=== PATIENT | female | born 1935 | race Caucasian/White ===

== ENCOUNTER 2017-11-13 10:30 | Outpatient (RCR) | payer MEDICARE, OTHER, SELFPAY ==
--- NOTE | 2017-10-21 10:50 | HP.PTEVAL_ITS ---
Patient's Visit Information OBED WRIGHT is a 82 year old F referred to Physical Therapy by Marco CHOW with a diagnosis of L hip arthritis L leg weakness.. Date of Evaluation: 10/21/17 Physical Therapist: Marco Rosenberg, DPT, OC - Visit Plan Frequency: 2x /Week Duration: 4-6 Weeks Plan: 2x/week for 4-6 weeks for. 1. rollout and stretch ITB, quad, hip flexor and teach for HEP, L leg pull. 2. general home based LE strength without hip pain and teach for HEP. 3. foam balance and teach for HEP as safety allows. 4. MH as needed. - Subjective Subjective: Lose balance and hurts to walk in L hip and leg more than R. Pain is lateral at the hip and down the leg. Sees [facility] for injections in L hip every 6 months, had one about 6 months ago and sees him tomorrow. Sit is comfortable but walking and transferring hurts. Sleep is OK. Activities at home are what she wants to do but everything hurts especially in the kitchen and at the sink. No exercises. Does not work. Basic ADLs are OK but painful. Bingo is hobby and not a problem. No current numbness or tingling. Steps as she lives in [facility] and they hurt but no more than anything else. - Pain L hip Pain Intensity (Out of 10): 7 Pain Intensity Range: 0, 7 Comment: walking R hip Pain Intensity (Out of 10): 0 Pain Intensity Range: 0, 2 - Objective Walks I on firm flat surface with short steps. Transfers I with some pain L hip exitting from chair. steps with one rail and reciprocal not feeling too bad. LB AROM mod limited ex and min in flexion and SB without pain. L hip ROM felxion 105 degrees abd 20, ext rot 45, IR 10, pain at end ranges of rotation, - 5 ext. L hip ext and abduction strength 3/5 and flexion 3+, add 4/5, knee strength 4/5 ankle s strength 4/5. R hip ROM flexion 115 degrees abd 25, ext rot 50, IR 15, 0 ext. Knee AROM WFL as is ankle. ankle aROM WFL. + l hip scour, - R. Sensation LE WNL to gross light touch. reflexes 2/3 patella and achilles. foam stance eo 30 ec 10. VOR walk is good. Hip strength - Balance Scores Functional Gait Assessment Score: 23 % Disability: 23.3400 - Goals Goal 1:: L hip pain 0/10 at all times Goal Time Frame: 4-6 Weeks Goal 2:: I approp HEP for stretch and strength Goal Time Frame: 4-6 Weeks Goal 3:: quad tightness improved and hip ext ROM 5 B Goal Time Frame: 4-6 Weeks - Rehabilitation Potential Physical Therapy Diagnosis: L hip OA exacerbated by decreased ROM Rehabilitation Potential: Good - Anticipated Interventions Patient/Client Instruction: Educate patient on: Condition, Plan of Care For the Purpose of:: To decrease pain, To increase ROM Therapeutic Exercise to Include: Strength training, Balance training, Passive ROM, Active ROM For the Purpose of:: To decrease pain, To decrease swelling/inflammation, To improve muscle performance and motor function Manual Therapy Techniques to Include: Mobilization, Other Comment: leg pull For the Purpose of:: To decrease pain, To increase ROM Thermo therapy (hot pack): Yes For the Purpose of:: To decrease pain, To improve gait and locomotor functions Thank you for the opportunity to evaluate your patient. For Medicare and Medicare HMO plans, please review the plan of care and approve it. It will need to be FAXED BACK to us at [phone] for Medicare purposes. Please let me know if there are questions or concerns regarding this plan of care. Physician Signature: Date:
--- NOTE | 2017-11-13 11:24 | HP.PTDCSUM ---
HP - PT D/C Summary It has been my pleasure to treat OBED WIRGHT under orders from Marco Angel, for the diagnosis of L hip arthritis L leg weakness. for a total of 7 visit(s). Discharge Date: 11/13/17 Please see the following information for a summary of their discharge status. - Subjective Subjective: Doing Ok, treatment really helps. Feeling better overall. Was outside alot yesterday. To doctor in 5 months. - Pain L hip Pain Intensity (Out of 10): 7 R hip Pain Intensity (Out of 10): 0 bilat. LB Pain Intensity (Out of 10): 0 - Overall Improvement % Improvement: 50 - Objective Objective/Function: +2 FGA. 5 degres ext l hip but still tight. Walks well and steps with rail for balance. - Goals Goal 1:: L hip pain 0/10 at all times Goal Progress: Progressing Goal 2:: I approp HEP for stretch and strength Goal Progress: Progressing Goal 3:: quad tightness improved and hip ext ROM 5 B Goal Progress: Goal Met - Plan Plan: D/C to HEP - D/C Information Discharge Comments: Pt doing wella nd responds very well to treatment. ready to be done with PT and kalli ttempt to continue to improve on her own. Willc all doctor if not satisfactory. If there are questions or concerns regarding this patient's physical therapy, please feel free to call me at [phone]. Thank you for the referral of this patient. Sincerely, Marco Rosenberg, DPT, OC
== END 2017-11-13 19:00 | disposition home or self-care (01) ==
LOC: PT 10:30
PROVIDERS: Family Provider Family Medicine; PCP Family Medicine; Visit Provider Family Medicine
DX: M16.0 Bilateral primary osteoarthritis of hip (principal); R29.898 Other symptoms and signs involving the musculoskeletal system; M51.36 Other intervertebral disc degeneration, lumbar region
CPT/HCPCS: 97110; 97140; 97162; 97530

== ENCOUNTER → 2017-11-26 11:50 | Outpatient (CLI) | payer MEDICARE, OTHER, SELFPAY ==
--- NOTE | 2017-11-26 11:53 | RAD_ITS ---
STUDY: X-RAY - CERVICAL SPINE REASON FOR EXAM: Female, 82 years old. Chronic neck pain. TECHNIQUE: 5 view(s) of the cervical spine were obtained. COMPARISON: None FINDINGS: Normal anterior atlantoaxial articulation. Normal odontoid process. Normal cervical lordosis. There is multi-level endplate spondylosis. There is multi-level degenerative disc disease with multilevel disc space narrowing. Normal visualized intervertebral neuroforamina. There is no evidence of acute fracture or loss of vertebral axial height. There is maintenance of normal alignment. The soft tissue structures are unremarkable. RAD/Cerv Spine 4 or 5 Views IMPRESSION: Degenerative changes of the cervical spine. Electronically Signed: John Suazo DO at 13:25 EDT Tel [phone], Service support ,
== END ==
PROVIDERS: Family Provider Family Medicine; PCP Family Medicine; Visit Provider Anesthesiology Pain Medicine
DX: M54.2 Cervicalgia (principal)
CPT/HCPCS: 72050

== ENCOUNTER → 2018-04-22 15:52 | Outpatient (CLI) | payer MEDICARE, OTHER, SELFPAY ==
[2018-04-22 17:52] LABS: Hematocrit 36.9 % (37-47); Mean Corp Hgb Conc 32.5 g/gl (32-36); Mean Corpuscular Hgb 31.6 pg (27.0-32.0); Mean Corpuscular Volume 97.1 fL (81-99); Mean Platelet Vol. 11.1 fl (6.2-12.0); Platelet Count 220 K/mm3 (150-450); RBC Distribution Width CV 13.1 % (11.6-14.6); RBC Distribution Width SD 45.4 fl (35.1-43.9); Vitamin D,25 Hydroxy 38.2 ng/mL (29.95-100.01); White Blood Count 5.5 K/mm3 (4.4-11.0)
[2018-04-22 17:58] LABS: Scan Indicated on CBC? Y/N NO
[2018-04-22 18:08] LABS: ALB/GLOB Ratio 1.1 RATIO (0.9-2.4); AST(SGOT) 24 U/L (15-37); Alanine Aminotransfer ALT/SGPT 26 U/L (13-56); Albumin, Serum 3.7 g/dL (3.2-5.0); Alkaline Phosphatase 57 U/L (45-117); Anion Gap 9 (5-15); BUN 27 mg/dL (7-18); BUN/Creat Ratio 23.9 RATIO (10-20); Calcium,Total 9.5 mg/dL (8.5-10.1); Chloride 105 mmol/L (98-107); Creatinine, Serum 1.13 mg/dL (0.55-1.02); EST Glomerular Filtration Rate 49 mL/min (>60); Est Glom Filt Rate - Afr Amer 59 mL/min (>60); Globulin 3.5 g/dL (2.2-4.2); Glucose 88 mg/dL (74-106); Potassium 4.3 mmol/L (3.5-5.1); Protein, Total 7.2 g/dL (6.4-8.2); Rheumatoid Factor < 10.0 IU/mL (<15); Sodium Level 139 mmol/L (136-145); Thyroid Stim Hormone (TSH) 1.08 uIU/mL (0.358-3.74)
[2018-04-27 16:25] LABS: ANTINUCLEAR ANTIBODIES DIRECT Negative (Negative)
== END ==
PROVIDERS: Visit Provider Family Medicine
DX: M16.12 Unilateral primary osteoarthritis, left hip (principal); R52 Pain, unspecified
CPT/HCPCS: 36415; 80053; 82306; 84443; 85027; 86038; 86431

== ENCOUNTER 2018-08-20 13:30 | Outpatient (RCR) | payer MEDICARE, OTHER, SELFPAY ==
--- NOTE | 2018-08-10 13:13 | HP.PTEVAL ---
Patient's Visit Information OBED WRIGHT is a 83 year old F referred to Physical Therapy by Filomena Freeman MD with a diagnosis of Dysequilibrium, back pain.. Date of Evaluation: 08/10/18 Physical Therapist: Marco Rosenberg, BUCK, OCS, CSCS - Visit Plan Frequency: 1-2x /Week Duration: 4-6 Weeks Plan: Neurocom balacne assessment then 2-3 visits to 2x/week for 2-4 weeks depending on results for vestibular balance and other balacne per results. - Subjective Findings: Mad about losing balance. Wobbles when I walk and has for a couple months. Has L hip that needs replaced and that might contribute. Does not use cane or walker. No falls. No spinning. No neuropathy. Sleeps normal. Not employed. Basic aDLs are OK. Gets out to play bingo and watches TV. Sometimes does some ex at home at the sink. Basic aDLs are OK, just more wobbly than usual. - Objective Walks I, trasnfers I without UE. Steps are reciprocal but needs one rail. VOR walking very slow and challenging. reflexes LE patella adn achilles 2/3. Sensation LE WNL to gross light touch. Strength LE 4-/5 without myotomal abnormalities. coordination to heel lemon adn reciprocal toe tap. - Balance Scores Functional Gait Assessment Score: 24 % Disability: 20.0000 CATSIB Score (Max score 120 seconds): 94 - Goals Goal 1:: FGA Goal Time Frame: 2-4 Weeks Goal 2:: Neurocom test complete Goal Time Frame: 2-4 Weeks Goal 3:: I approp HEP to minimize future problems. Goal Time Frame: 2-4 Weeks - Rehabilitation Potential Physical Therapy Diagnosis: Dysequilibrium of gait especially with head moving. Rehabilitation Potential: Good - Anticipated Interventions Patient/Client Instruction: Educate patient on: Condition, Plan of Care For the Purpose of:: To improve safety with gait, To improve safety Therapeutic Exercise to Include: Balance training, Gait and locomotor training For the Purpose of:: To increase tolerance to activity/condition/position, To improve safety Thank you for the opportunity to evaluate your patient. For Medicare and Medicare HMO plans, please review the plan of care and approve it. It will need to be FAXED BACK to us at [phone] for Medicare purposes. For Medicare only, by signing this I certify the plan of care. Please let me know if there are questions or concerns regarding this plan of care. Physician Signature: Date:
--- NOTE | 2018-08-17 12:39 | HP.PTCOM ---
PT Communication Note 08/17/[address] Filomena Freeman MD , Thank you for the referral of Mary to [facility] for balacne testing. I have enclosed a copy of her results for your review. In summation, she score only low on the [employer] vestibular component. Other tests were normal for her age. With this in mind, I plan to see her one visit to instruct in HEP to address this issue. We will then let her ex at home and follow up in a month to recheck and note improvements and progress exercise as needed. If there ar equestions regarding her physical therapy, please feel free to call me. Thank you. Sincerely, Marco Rosenberg DPT, OCS, CSCS Contact Information
--- NOTE | 2018-10-13 18:22 | HP.PT.NRP ---
HP - Discharge Summary (1) - Patient Information OBED WRIGHT was seen in my office for initial evaluation on 08/10/18. The following Plan of Care was established for this patient: Initial Frequency: 1-2x /Week Initial Duration: 4-6 Weeks - Anticipated Interventions Patient/Client Instruction: Educate patient on: Condition, Plan of Care For the Purpose of:: To improve safety with gait, To improve safety Therapeutic Exercise to Include: Balance training, Gait and locomotor training For the Purpose of:: To increase tolerance to activity/condition/position, To improve safety This patient was last seen in our office 08/20/18. Pertinent comments regarding their Physical therapy will appear below: pT SEEN 3 VISITS OF poc THEN STATED SHE WANTED TO DO HER EXERCISES AT HOME. She was to f/u one month later but neglected to attend that visit. It has been over 2 months since last attendance and I will disocntinue due to nonattendance. At this point I will be discontinuing this patient from physical therapy. I would be happy to see this patient again in the future if found appropriate by the physician. Thank you! Marco Rosenberg, DPT, OCS, CSCS
== END 2018-08-20 19:00 | disposition home or self-care (01) ==
LOC: PT 13:30
PROVIDERS: Family Provider Family Medicine; PCP Family Medicine; Referring Provider Anesthesiology Pain Medicine; Visit Provider Anesthesiology Pain Medicine
DX: M54.9 Dorsalgia, unspecified (principal); R26.89 Other abnormalities of gait and mobility
CPT/HCPCS: 97110; 97162; 97750

== ENCOUNTER → 2018-09-17 18:05 | Outpatient (CLI) | payer MEDICARE, OTHER, SELFPAY | PROVIDERS: Referring Provider Family Medicine; Visit Provider Family Medicine | DX: R30.0 Dysuria (principal) | CPT/HCPCS: 87086; 87088 ==

== ENCOUNTER → 2019-04-29 | Outpatient (CLI) | payer MEDICARE, OTHER, SELFPAY ==
[2017-07-30 22:56] VITALS: BMI 22.3
--- NOTE | 2019-04-29 08:57 | RAD_ITS ---
STUDY: X-RAY - ABDOMEN/PELVIS REASON FOR EXAM: Female, 84 years old. Chronic left lower quadrant pain. TECHNIQUE: AP supine and upright views of the abdomen and pelvis. COMPARISON: Comparison is made with prior examination dated December 21, 2015. FINDINGS: Normal visualized lung bases. There is a moderate amount of colonic fecal material. There is no demonstrated free abdominal air. The visualized liver, spleen and kidneys are grossly normal in size and morphology. There are calcified phleboliths in the pelvis. There are diffuse degenerative changes of the visualized lumbar spine. Osteoarthritis of both hip joints worse on the left side. RAD/Abd Inc Decub and/or Erect IMPRESSION: Moderate amount of fecal material is seen in the colon. Electronically Signed: Greg Harding, at 9:41 EDT , Service support ,
--- NOTE | 2019-04-29 08:57 | RAD_ITS ---
STUDY: X-RAY CHEST REASON FOR EXAM: Female, 84 years old. Dysphagia TECHNIQUE: PA and lateral views of the chest. COMPARISON: None. FINDINGS: The lungs are clear and expanded. There is no demonstrated pleural abnormality. Normal size heart. Normal mediastinum and leti. Normal visualized pulmonary arteries. Normal visualized aortic arch and descending thoracic aorta. Normal visualized thoracic spine. Normal visualized ribs, clavicles, and shoulders. There is no demonstrated abnormality of the visualized soft tissue structures of the upper abdomen. RAD/Chest PA and Lateral IMPRESSION: Normal x-ray examination of the chest. Electronically Signed: Jose Mahoney MD at 9:09 EDT Tel , Service support ,
[2019-04-29 09:13] LABS: Mucous, Urine 0 SEEN /hpf (<or=2+)
[2019-04-29 10:24] LABS: Color, Urine Yellow (Yellow); Glucose, Dipstick Normal (Normal); Ketone-Dipstick Negative (Negative); Leukocyte Esterase-Dipstick 500 /ul (Negative); Nitrite-Dipstick Negative (Negative); Occult Blood-Urine 10 /ul (Negative); Protein-Dipstick Negative (Negative); Urine Bilirubin Dipstick Negative (Negative); Urine Clarity Sl. Cloudy (Clear); Urine Urobilinogen Normal (Normal)
[2019-04-29 10:37] LABS: Absolute Lymphocyte Count 1.29 X10^3/uL (0.83-4.51); Absolute Neutrophil Count 5.5 X10^3/uL (2.0-7.7); Bacteria 2+ /hpf (None Seen); Basophil# 0.01 X10^3/uL; Basophil% 0.1 % (0-1); Eosinophil# 0.12 X10^3/uL; Eosinophils% 1.5 % (0-5); Hematocrit 42.3 % (37-47); Hemoglobin 13.6 g/dL (12.0-15.0); Lymphocyte # 1.29 X10^3/ul (4.0); Lymphocyte % 16.6 % (19-41); Mean Corp Hgb Conc 32.2 g/dL (32-36); Mean Corpuscular Hgb 31.1 pg (27.0-32.0); Mean Corpuscular Volume 96.8 fL (81-99); Mean Platelet Vol. 10.6 fl (6.2-12.0); Monocyte# 0.82 X10^3/uL; Monocyte% 10.6 % (0-10); NRBC Flagged by Analyzer 0 % (0-5); Neutrophil # 5.49 X10^3/uL (2.7-7.7); Neutrophil % 70.8 % (47-70); POSITIVE MORPHOLOGY YES; Platelet Count 220 K/mm3 (150-450); RBC Distribution Width SD 46.8 fl (35.1-43.9); Red Blood Cells-Urine 0-5 SEEN /hpf (0-5); Red Blood Count 4.37 M/mm3 (4.2-5.4); Squamous Epithelial Cells - UA 25-50 SEEN /hpf (5-10); White Blood Cells 5-10 SEEN /hpf (0-5); White Blood Count 7.8 K/mm3 (4.4-11.0)
[2019-04-29 10:39] LABS: Differential Indicated SCAN CRITERIA MET
[2019-04-29 10:55] LABS: PTHIN 40.6 pg/mL (18.4-80.1)
[2019-04-29 11:02] LABS: ALB/GLOB Ratio 1.1 RATIO (0.9-2.4); AST(SGOT) 15 U/L (15-37); Alanine Aminotransfer ALT/SGPT 21 U/L (13-56); Albumin, Serum 4.1 g/dL (3.2-5.0); Alkaline Phosphatase 60 U/L (45-117); Anion Gap 6 (5-15); BUN 22 mg/dL (7-18); BUN/Creat Ratio 21.8 RATIO (10-20); CRP < 2.90 mg/L (0.0-3.0); Calcium,Total 9.6 mg/dL (8.5-10.1); Chloride 104 mmol/L (98-107); Creatinine, Serum 1.01 mg/dL (0.55-1.02); EST Glomerular Filtration Rate 56 mL/min (>60); Est Glom Filt Rate - Afr Amer 67 mL/min (>60); Globulin 3.7 g/dL (2.2-4.2); Glucose 86 mg/dL (74-106); Potassium 3.7 mmol/L (3.5-5.1); Protein, Total 7.8 g/dL (6.4-8.2); Sodium Level 140 mmol/L (136-145); Thyroid Stim Hormone (TSH) 1.86 uIU/mL (0.358-3.74)
[2019-04-30 07:07] LABS: Erythrocyte Sedimentation Rate 10 mm/hr (0-30)
[2019-04-30 15:56] LABS: ANTINUCLEAR ANTIBODIES DIRECT Negative (Negative)
[2019-04-30 16:08] LABS: Carcinoembryonic Antigen 4.3 ng/mL (0.0-4.7)
== END | disposition home or self-care (01) ==
LOC: MTLAB 08:55
PROVIDERS: Family Provider Family Medicine; PCP Family Medicine; Referring Provider Family Medicine; Visit Provider Family Medicine
DX: R63.4 Abnormal weight loss (principal); R10.32 Left lower quadrant pain; E13.10 Other specified diabetes mellitus with ketoacidosis without coma; R19.00 Intra-abdominal and pelvic swelling, mass and lump, unspecified site
CPT/HCPCS: 36415; 71046; 74019; 80053; 81001; 82378; 83970; 84443; 85025; 85652; 86038; 86140

== ENCOUNTER → 2019-05-12 | Outpatient (CLI) | payer MEDICARE, OTHER, SELFPAY ==
--- NOTE | 2019-05-12 12:55 | CT_ITS ---
STUDY: CT ABDOMEN AND PELVIS WITHOUT CONTRAST REASON FOR EXAM: Female, 84 years old. Weight loss and left lower quadrant pain RADIATION DOSAGE (If Supplied By Facility): CTDIvol = ( 5.42 ) mGy, DLP = ( 256.19 ) mGycm TECHNIQUE: Transaxial images were obtained from the dome of the diaphragm to the symphysis pubis without oral contrast, and without intravenous contrast. Sagittal and coronal images were reconstructed. Individualized dose optimization techniques were used for this CT. COMPARISON: July 31, 2017 FINDINGS: Mild subsegmental atelectasis in left lower lobe.. Calcified granuloma in right lower lobe. The visualized portions of the heart are within normal limits. Normal liver. Normal gallbladder and extrahepatic biliary system. Multiple tiny granulomatous calcifications within the spleen.. Normal pancreas. Normal bilateral adrenal glands. Tiny nonobstructing right renal calculus without evidence for hydronephrosis or ureteral calculus. Small bilateral parapelvic renal cysts Normal visualized stomach. There is mild nonspecific ileus with diffuse fecal retention in the colon. There is a loop of small bowel left lower quadrant demonstrating concentric thickening of the rogers which may be consistent with nonspecific enteritis. Appendix not visualized consistent with appendectomy.. Atherosclerotic changes of the aorta without evidence for aneurysm Normal inferior vena cava. Normal retroperitoneum. Incompletely distended thick-walled bladder likely of no significance. Normal abdominal wall. Lumbar spine demonstrates mild spondylosis. 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 No evidence for small bowel obstruction. Apparent loop of small bowel in the left lower quadrant with thickening of the rogers which may be consistent with nonspecific enteritis Electronically Signed: Zach Hi MD at 19:01 EDT , Service support ,
== END | disposition home or self-care (01) ==
LOC: CT 12:49
PROVIDERS: Family Provider Family Medicine; PCP Family Medicine; Referring Provider Family Medicine; Visit Provider Family Medicine
DX: R63.4 Abnormal weight loss (principal)
CPT/HCPCS: 74176

== ENCOUNTER → 2019-05-17 | Outpatient (CLI) | payer MEDICARE, OTHER, SELFPAY ==
[2017-07-30 22:56] VITALS: BMI 22.3
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
== END | disposition home or self-care (01) ==
LOC: RAD 09:12
PROVIDERS: Family Provider Family Medicine; PCP Family Medicine; Referring Provider Family Medicine; Visit Provider Family Medicine
DX: R13.10 Dysphagia, unspecified (principal)
CPT/HCPCS: 74220

== ENCOUNTER → 2019-06-03 08:33 | Outpatient (CLI) | payer MEDICARE, OTHER, SELFPAY ==
[2019-05-25 09:17] VITALS: BMI 20.1
[2019-05-25 09:22] VITALS: BMI 22.3
--- NOTE | 2019-06-03 08:35 | RAD_ITS ---
STUDY: AIR-CONTRAST UPPER GI SERIES AND SMALL BOWEL FOLLOW-THROUGH EXAMINATION. REASON FOR EXAM: Female, 84 years old. Intermittent left lower quadrant pain. FLUOROSCOPY TIME (if supplied): ( 2 minutes and 39 seconds ) minutes/seconds TECHNIQUE: The patient ingested barium. Multiple images of the esophagus, stomach and duodenum were obtained. Following this, a small bowel follow-through examination was performed. COMPARISON: None. FINDINGS: The esophagus is unremarkable. There is no evidence of obstruction. No mass lesion is seen. No evidence of gastroesophageal reflux. The stomach and duodenum are unremarkable. A small bowel follow through examination was then obtained. The small bowel transit is normal. No evidence of intrinsic or extrinsic small bowel disease. The terminal ileum is unremarkable. RAD/Upper GI/w Small Bowel IMPRESSION: Unremarkable air contrast upper GI series and small bowel follow-through examination. Electronically Signed: Greg Harding, at 14:31 EST , Service support ,
== END ==
PROVIDERS: Family Provider Family Medicine; PCP Family Medicine; Referring Provider Surgery; Visit Provider Surgery
DX: R93.5 Abnormal findings on diagnostic imaging of other abdominal regions, including retroperitoneum (principal); K63.9 Disease of intestine, unspecified; N32.81 Overactive bladder; R10.32 Left lower quadrant pain; N39.0 Urinary tract infection, site not specified
CPT/HCPCS: 74249; 87086; 87088

== ENCOUNTER → 2019-06-03 15:17 | Outpatient (CLI) | payer MEDICARE, OTHER, SELFPAY ==
[2019-05-25 09:22] VITALS: BMI 22.3
== END ==
PROVIDERS: Family Provider Family Medicine; PCP Family Medicine; Referring Provider Family Medicine; Visit Provider Family Medicine
DX: N39.0 Urinary tract infection, site not specified (principal)
CPT/HCPCS: 87086

== ENCOUNTER 2019-06-06 18:16 | Emergency (ER) | payer OTHER, MEDICARE, SELFPAY ==
[2019-05-25 09:22] VITALS: BMI 22.3
[2019-06-06 18:17] VITALS: BP 182/96; PULSE 80; RESP 17; TEMP 36.8; O2SAT 98; BMI 25.1
[2019-06-06 18:28] VITALS: BP 175/82; PULSE 79; RESP 19; O2SAT 98
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
[2019-06-06 19:47] LABS: Absolute Lymphocyte Count 1.15 X10^3/uL (0.83-4.51); Absolute Neutrophil Count 4.7 X10^3/uL (2.0-7.7); Basophil# 0.02 X10^3/uL; Basophil% 0.3 % (0-1); Eosinophil# 0.03 X10^3/uL; Eosinophils% 0.5 % (0-5); Hemoglobin 12.7 g/dL (12.0-15.0); Lymphocyte # 1.15 X10^3/ul (4.0); Lymphocyte % 17.4 % (19-41); Mean Corp Hgb Conc 32.6 g/dL (32-36); Mean Corpuscular Hgb 31.5 pg (27.0-32.0); Mean Corpuscular Volume 96.8 fL (81-99); Mean Platelet Vol. 9.5 fl (6.2-12.0); Monocyte# 0.63 X10^3/uL; Monocyte% 9.5 % (0-10); NRBC Flagged by Analyzer 0 % (0-5); Neutrophil % 71.1 % (47-70); Platelet Count 182 K/mm3 (150-450); RBC Distribution Width CV 12.5 % (11.6-14.6); RBC Distribution Width SD 44.9 fl (35.1-43.9); Red Blood Count 4.03 M/mm3 (4.2-5.4); White Blood Count 6.6 K/mm3 (4.4-11.0)
[2019-06-06] MEDS: Morphine 4 MG/ML Syringe IV ×2 (19:48→21:38)
[2019-06-06 20:15] LABS: ALB/GLOB Ratio 1.2 RATIO (0.9-2.4); AST(SGOT) 32 U/L (15-37); Alanine Aminotransfer ALT/SGPT 34 U/L (13-56); Albumin, Serum 3.8 g/dL (3.2-5.0); Alkaline Phosphatase 62 U/L (45-117); Anion Gap 5 (5-15); BUN 22 mg/dL (7-18); BUN/Creat Ratio 23.6 RATIO (10-20); Calcium,Total 9.3 mg/dL (8.5-10.1); Chloride 106 mmol/L (98-107); Creatinine, Serum 0.93 mg/dL (0.55-1.02); EST Glomerular Filtration Rate 61 mL/min (>60); Est Glom Filt Rate - Afr Amer 74 mL/min (>60); Estimated Creatinine Clearance 49.56 ml/min; Globulin 3.2 g/dL (2.2-4.2); Glucose 85 mg/dL (74-106); Lipase 141 U/L (73-393); Potassium 4.3 mmol/L (3.5-5.1); Sodium Level 140 mmol/L (136-145)
[2019-06-06 20:42] VITALS: BP 164/76; PULSE 75; RESP 14
[2019-06-06 20:48] LABS: Red Blood Cells-Urine 0 SEEN /hpf (0-5); White Blood Cells 0 SEEN /hpf (0-5)
[2019-06-06 21:03] LABS: Color, Urine Yellow (Yellow); Glucose, Dipstick Normal (Normal); Ketone-Dipstick 5 mg/dl (Negative); Leukocyte Esterase-Dipstick Negative /ul (Negative); Nitrite-Dipstick Negative (Negative); Occult Blood-Urine 10 /ul (Negative); Protein-Dipstick Negative (Negative); Urine Bilirubin Dipstick Negative (Negative); Urine Clarity Clear (Clear); Urine Urobilinogen Normal (Normal)
[2019-06-06 21:12] LABS: Bacteria RARE /hpf (None Seen); Mucous, Urine RARE /hpf (<or=2+); Squamous Epithelial Cells - UA 0-5 SEEN /hpf (5-10)
[2019-06-06 22:30] VITALS: BP 144/70; PULSE 77; RESP 16; O2SAT 100
[2019-06-06 23:18] VITALS: BP 144/70; PULSE 78; RESP 14; O2SAT 100
== END 2019-06-06 23:26 | disposition short-term general hospital (02) ==
PROVIDERS: Emergency Provider Emergency Medicine; Family Provider Family Medicine; PCP Family Medicine
DX: S22.20XA Unspecified fracture of sternum, initial encounter for closed fracture (principal); V48.5XXA Car driver injured in noncollision transport accident in traffic accident, initial encounter; Y93.89 Activity, other specified; Y92.410 Unspecified street and highway as the place of occurrence of the external cause; M54.2 Cervicalgia; M19.90 Unspecified osteoarthritis, unspecified site; K21.9 Gastro-esophageal reflux disease without esophagitis; Z79.899 Other long term (current) drug therapy
CPT/HCPCS: 70450; 71260; 72125; 74177; 80053; 81001; 83690; 84484; 85025; 93005; 96374; 96376; 99285; Q9967; A4216

== ENCOUNTER → 2019-06-25 11:55 | Outpatient (CLI) | payer OTHER, MEDICARE, SELFPAY ==
[2019-06-06 18:17] VITALS: BMI 25.1
--- NOTE | 2019-06-25 12:08 | RAD_ITS ---
STUDY: X-RAY CHEST REASON FOR EXAM: Female, 84 years old. Follow-up sternal fracture. TECHNIQUE: PA and lateral views of the chest. COMPARISON: CT chest 06/06/2019. FINDINGS: The lungs are clear and expanded. There is no demonstrated pleural abnormality. Normal size heart. Normal mediastinum and leti. Normal visualized pulmonary arteries. There is atherosclerotic calcification of the aortic arch with tortuosity. There is demineralization of the osseous structures. Normal visualized ribs, clavicles, and shoulders and spine. Redemonstrated is previously seen sternal fracture, now displaced approximately 1.3 cm with compared to prior examination CT chest dated 06/06/2019. There is no demonstrated abnormality of the visualized soft tissue structures of the upper abdomen. RAD/Chest PA and Lateral IMPRESSION: Osteopenia with sternal fracture described above. No acute cardiopulmonary disease. Electronically Signed: Carlene Marsh MD at 2:19 EST , Service support ,
== END ==
PROVIDERS: Family Provider Family Medicine; PCP Family Medicine; Referring Provider Family Medicine; Visit Provider Family Medicine
DX: S22.20XA Unspecified fracture of sternum, initial encounter for closed fracture (principal)
CPT/HCPCS: 71046

== ENCOUNTER → 2019-07-21 11:51 | Outpatient (CLI) | payer MEDICARE, OTHER, SELFPAY ==
--- NOTE | 2019-07-21 11:58 | RAD_ITS ---
STUDY: X-RAY - LUMBAR SPINE REASON FOR EXAM: Female, 84 years old. Chronic back pain. TECHNIQUE: 5 view(s) of the lumbar spine were obtained. COMPARISON: CT abdomen pelvis 06/06/2019. FINDINGS: Mild compression fracture of the L1 vertebral body. On the 06/06/2019 CT, there may have been subtle acute fracture lines in this location although they are difficult to see due to artifact from adjacent barium in bowel. The compression is new compared to previous. No other fracture. Alignment otherwise anatomic. Moderate degenerative changes lower lumbar spine. RAD/L/S Spine Min 4 Views IMPRESSION: Mild compression fracture of the L1 vertebral body. The fracture may have been present on 06/06/2019 although it is difficult to see on that study, and the compression is new. Electronically Signed: Herrera Levi, at 23:13 EST Tel , Service support ,
== END ==
PROVIDERS: Family Provider Family Medicine; PCP Family Medicine; Referring Provider Family Medicine; Visit Provider Family Medicine
DX: M54.9 Dorsalgia, unspecified (principal); G89.29 Other chronic pain
CPT/HCPCS: 72110

== ENCOUNTER 2019-09-21 10:30 | Outpatient (RCR) | payer MEDICARE, OTHER, SELFPAY ==
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
--- NOTE | 2019-09-21 11:22 | HP.PTDCSUM ---
HP - PT D/C Summary It has been my pleasure to treat OBED WRIGHT referred by Alan Gay MD, with the diagnosis of Radiculopathy, Sacroiliitis for a total of 5 visit(s). Discharge Date: 09/21/19 Please see the following information for a summary of their discharge status. - Subjective Subjective: I feel good. Yordan floresn working on it. HEP is helping. She feels OK. A little better each day. Wants to do exercises at home. Will see doctor in a couple months. Got injection last week in back. It helped. - Pain LBP Pain Intensity (Out of 10): 0 - Overall Improvement % Improvement: 80 - Objective Objective/Function: FGA is above normal for her age. LB AROM ext adn flexion painfree today, SB limited R vs L but painfree. Moving , transitioning adn walking without pain today. Pt happy with progress and feels she can continue on her own via HEP. - Goals Goal 1:: Stadn at counter adn cook meal without increased pain Goal Progress: Goal Met Goal 2:: Patient feel 75% better in LBP and 2/10 at worst. Goal Progress: Goal Met Goal 3:: I appropr posture including NS and HEP to minimize future problems. Goal Progress: Goal Met Goal 4:: Oswestry < 25% disability. Goal Progress: Goal Met - Plan Plan: d/c - D/C Information Discharge Comments: Pt to continue via HEP. If there are questions or concerns regarding this patient's physical therapy, please feel free to call me at [phone]. Thank you for the referral of this patient. Sincerely, Marco Rosenberg, DPT, OCS, CSCS
== END 2019-09-21 19:00 | disposition home or self-care (01) ==
LOC: PT 10:30
PROVIDERS: PCP Family Medicine; Referring Provider Specialist; Visit Provider Specialist
DX: M46.1 Sacroiliitis, not elsewhere classified (principal); M16.11 Unilateral primary osteoarthritis, right hip; M54.16 Radiculopathy, lumbar region
CPT/HCPCS: 97110; 97162; 97164

== ENCOUNTER → 2020-04-12 | Outpatient (CLI) | payer MEDICARE, OTHER, SELFPAY ==
[2020-04-12 14:24] LABS: Mucous, Urine 0 SEEN /hpf (<or=2+)
[2020-04-12 17:38] LABS: Color, Urine Yellow (Yellow); Glucose, Dipstick Normal (Normal); Ketone-Dipstick Negative (Negative); Leukocyte Esterase-Dipstick 500 /ul (Negative); Nitrite-Dipstick Positive (Negative); Occult Blood-Urine 50 /ul (Negative); Protein-Dipstick 30 mg/dl (Negative); Urine Bilirubin Dipstick Negative (Negative); Urine Clarity Cloudy (Clear); Urine Urobilinogen Normal (Normal)
[2020-04-12 17:54] LABS: White Blood Cells >100 SEEN /hpf (0-5)
[2020-04-12 17:55] LABS: Bacteria 4+ /hpf (None Seen)
[2020-04-12 17:56] LABS: Transitional Epithelial - Ur 0-5 SEEN /hpf (0-5)
[2020-04-12 17:57] LABS: Squamous Epithelial Cells - UA 0-5 SEEN /hpf (5-10)
[2020-04-12 17:59] LABS: Red Blood Cells-Urine 0-5 SEEN /hpf (0-5)
[2020-04-12 18:03] LABS: ALB/GLOB Ratio 1.1 RATIO (0.9-2.4); AST(SGOT) 13 U/L (15-37); Alanine Aminotransfer ALT/SGPT 21 U/L (13-56); Albumin, Serum 3.9 g/dL (3.2-5.0); Alkaline Phosphatase 76 U/L (45-117); Anion Gap 6 (5-15); BUN 22 mg/dL (7-18); BUN/Creat Ratio 23.6 RATIO (10-20); Calcium,Total 9.6 mg/dL (8.5-10.1); Chloride 105 mmol/L (98-107); Creatinine, Serum 0.93 mg/dL (0.55-1.02); EST Glomerular Filtration Rate 61 mL/min (>60); Est Glom Filt Rate - Afr Amer 74 mL/min (>60); Globulin 3.5 g/dL (2.2-4.2); Glucose 84 mg/dL (74-106); Potassium 3.5 mmol/L (3.5-5.1); Protein, Total 7.4 g/dL (6.4-8.2); Sodium Level 140 mmol/L (136-145)
[2020-04-12 18:17] LABS: Microalbumin,Random Urine 34.1 mg/L (NO RANGE EST.); Microalbumin:Creatinine Ratio 33.4 mg/g CRE (<30 mg/g CRE)
[2020-04-12 18:26] LABS: Hemoglobin A1c 5.1 % (3.8-5.6)
== END | disposition home or self-care (01) ==
PROVIDERS: PCP Family Medicine; Referring Provider Family Medicine; Visit Provider Family Medicine
DX: R35.1 Nocturia (principal); Z79.899 Other long term (current) drug therapy
CPT/HCPCS: 36415; 80053; 81001; 82043; 82570; 83036

== ENCOUNTER 2020-05-18 16:33 | Emergency (ER) | payer MEDICARE, OTHER, SELFPAY ==
[2020-05-18 16:35] VITALS: BP 167/77; PULSE 88; RESP 16; TEMP 36.3; O2SAT 98; BMI 19.4
--- NOTE | 2020-05-18 17:49 | ED.DCSUM_ITS ---
History of Present Illness Chief Complaint: Upper Extremity Injury Informant: Patient Narrative: Patient is an 85-year-old female with a past medical history of hypertension who presents to the [facility] for left arm pain. This started 4 days ago. Just prior to the onset of pain she was carrying heavy groceries in that arm. She is left-handed at baseline. Movements make the pain worse. Pain goes down from her shoulder to her hand. Loss of sensation. She has never had this happ en before. She tried taking 1 Advil for this which did not give her significant relief. If she keep the arm still of the pain is minimal. She denies any associated chest pain or shortness of breath. No neck pain. No headache. Past Medical History - Allergies and Home Meds Allergies/Adverse Reactions: Allergies cyclobenzaprine Allergy (Verified 05/18/20 16:35) Unknown Penicillins Allergy (Verified 05/18/20 16:35) Rash acetaminophen [From Tylenol] Adverse Reaction (Verified 05/18/20 16:35) STATES FILLS NUMB ALL OVER diphenhydramine citrate [From Advil PM] Adverse Reaction (Verified 05/18/20 16:35) STATES FEELS NUMB ALL OVER ibuprofen [From Advil PM] Adverse Reaction (Verified 05/18/20 16:35) STATES FEELS NUMB ALL OVER Primary Care Physician: Marco Angel MD [Primary Care Provider] - 3-5 Days Surgical History: noncontributory, adenoidectomy, - - colonoscopy, lumpectomy Smoking Status: Unknown if ever smoked Review of Systems All systems negative except as indicated General: Denies: Chills, Fever, Sweats Eyes: Denies: Visual changes - bilaterally, Diplopia ENT: Denies: Rhinorrhea, Sore throat Cardiovascular: Denies: Chest pain, Palpitations Respiratory: Denies: Dyspnea, Cough, Dyspnea on exertion Gastrointestinal: Denies: Abdominal pain, Nausea, Vomiting, Diarrhea Genitourinary: Denies: Dysuria, Hematuria, Frequency Musculoskeletal: Reports: Arthralgias. Denies: Neck pain, Back pain, Swelling, Extremity Pain Skin: Denies: Rash, Wounds Neurological: Denies: Headache, Weakness, Numbness Physical Exam Vital Signs/Narrative: Vital Signs Temp Pulse Resp BP Pulse Ox 05/18/20 16:35 97.3 F L 88 16 167/77 H 98 Inital Vital Signs reviewed: Yes General: Well nourished, Well developed, No Acute Distress Head: Normocephalic, Atraumatic Eyes: Perrl, EOMI ENT: Moist mucous membranes, No rhinorrhea Neck: Supple, Nontender Cardiovascular: Regular rate, Regular rhythm, No murmurs Respiratory: No distress, CTA bilaterally, Chest nontender Abdomen: Soft, Nontender, Nondistended, Normal bowel sounds Back: Nontender, Normal Inspection Extremities: No edema, - - Patient has tenderness to palpation of the left shoulder and tricep. She has pain going down the arm when passively abducting the left arm. Full muscle strength of the bicep. Good excellence manager strength. 2+ radial pulse. Sensation intact. No pain with compression of the cervical spine. Skin: Normal color, No rash Neurological: Alert, Oriented x3, Cranial nerves II-XII grossly intact, Normal Strength, Normal Sensation Psychological: Normal affect, Normal Mood Diagnostic/Tx/Re-eval - Medical Decision Making Patient presents to the ED for left arm pain. This seems musculoskeletal as it hurts with movement and palpation. Will obtain x-ray of the left shoulder. This was painful after carrying groceries in that left arm. X-ray obtained which showed calcific tendinitis. Will recommend symptomatic treatment at home. We will have her follow-up with her PCP. Warning signs and symptoms which to return to the ED are reviewed. She understands and is agreeable this plan. She is discharged home in stable condition. All questions answered. ED Disposition - Plan for ED Patient: Disposition: Home or Assisted Living Diagnosis: Tendinitis, Shoulder pain Instructions: ED Tendinitis Calcific Referrals: Marco Angel MD [Primary Care Provider] - 3-5 Days
--- NOTE | 2020-05-18 17:55 | RAD_ITS ---
STUDY: X-RAY - LEFT SHOULDER REASON FOR EXAM: Female, 85 years old. LEFT SHOULDER PAIN. NO KNOWN INJURY. TECHNIQUE: 4 view(s) of the shoulder. COMPARISON: None. FINDINGS: Normal glenohumeral articulation. Normal acromioclavicular joint. Normal acromion. Normal humeral head and visualized proximal humerus. There is periarticular soft tissue calcification consistent with a calcific tendinitis. There is no demonstrated fracture. Normal visualized pulmonary apex. RAD/Shoulder min 2 Views IMPRESSION: No acute fracture or dislocation. Calcific tendinitis. Electronically Signed: Sonido De La Torre MD at 19:02 EST , Service support ,
== END 2020-05-18 19:24 | disposition home or self-care (01) ==
PROVIDERS: Emergency Provider Emergency Medicine; PCP Family Medicine
DX: M65.222 Calcific tendinitis, left upper arm (principal); I10 Essential (primary) hypertension
CPT/HCPCS: 73030; 99282

== ENCOUNTER 2020-06-20 10:13 | Outpatient (RCR) | payer MEDICARE, OTHER, SELFPAY ==
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
--- NOTE | 2020-08-22 09:44 | HP.PT.NRP ---
OBED WRIGHT was seen in my office for initial evaluation on 06/20/20. The following Plan of Care was established for this patient: Initial Frequency: 1x/Week Initial Duration: 4 Weeks Patient/Client Instruction: Educate patient on: Condition, Plan of Care For the Purpose of:: To decrease pain, To increase ROM, To improve nutrient delivery to tissue, To improve muscle performance and motor function, To improve ability to perform ADL's, To increase tolerance to activity/condition/position, To improve performance and independence with ADL's, To decrease level of supervision to perform tasks, To improve ability of physical actions for home/community/work/leisure, To improve gait and locomotor functions, To improve health of tissue, To improve endurance, To improve balance, To improve safety with gait Therapeutic Exercise to Include: Strength training, Endurance training, Balance training, Body mechanics, Postural training, Flexibilty training, Gait and locomotor training, Active ROM, Dynamic Lumbar Stabilization For the Purpose of:: To decrease pain, To improve nutrient delivery to tissue, To improve muscle performance and motor function, To improve ability to perform ADL's, To increase tolerance to activity/condition/position, To improve performance and independence with ADL's, To decrease level of supervision to perform tasks, To improve ability of physical actions for home/community/work/leisure, To improve gait and locomotor functions, To improve health of tissue, To increase flexibility/ROM, To improve balance, To improve safety with gait Functional Training to Include: Gait training For the Purpose of:: To improve safety with gait This patient was last seen in our office 06/20/20. Pertinent comments regarding their Physical therapy will appear below: Pt no showed for her follow up appointment after her initial evaluation. DC PT At this point I will be discontinuing this patient from physical therapy. I would be happy to see this patient again in the future if found appropriate by the physician. Thank you! Lauryn Saldana, MPT
== END 2020-06-20 19:00 | disposition home or self-care (01) ==
LOC: PT 10:13
PROVIDERS: PCP Family Medicine; Referring Provider Anesthesiology Pain Medicine; Visit Provider Anesthesiology Pain Medicine
DX: M54.5 Low back pain (principal)
CPT/HCPCS: 97161

== ENCOUNTER → 2020-08-05 | Outpatient (CLI) | payer MEDICARE, OTHER, SELFPAY ==
[2020-08-05 11:23] VITALS: BMI 20.6
== END | disposition home or self-care (01) ==
PROVIDERS: PCP Family Medicine; Referring Provider Nurse Practitioner Family; Visit Provider Nurse Practitioner Family
DX: R68.89 Other general symptoms and signs (principal)
CPT/HCPCS: 87635; U0005; U0003

== ENCOUNTER 2020-08-25 09:31 | Outpatient (RCR) | payer MEDICARE, OTHER, SELFPAY ==
[2020-08-05 11:23] VITALS: BMI 20.6
== END 2020-08-25 23:59 ==
LOC: IMMUN 09:31
PROVIDERS: PCP Family Medicine; Referring Provider Family Medicine; Visit Provider Family Medicine
DX: Z23 Encounter for immunization (principal)
CPT/HCPCS: 0011A; 0012A

== ENCOUNTER → 2020-09-20 15:22 | Outpatient (CLI) | payer MEDICARE, OTHER, SELFPAY ==
[2020-08-05 11:23] VITALS: BMI 20.6
--- NOTE | 2020-09-20 15:30 | RAD_ITS ---
STUDY: X-RAY CHEST REASON FOR EXAM: Female, 85 years old. COUGH TECHNIQUE: 2 views COMPARISON: Prior chest exam of 06/25/2019 FINDINGS: The lungs are clear and expanded. Stable chronic changes at the left lung base. Normal size heart. Normal mediastinum and leti. Normal visualized pulmonary arteries. There is atherosclerotic calcification of the aortic arch with tortuosity. There are diffuse degenerative changes of the visualized thoracic spine. Normal visualized ribs, clavicles, and shoulders. There is no demonstrated abnormality of the visualized soft tissue structures of the upper abdomen. RAD/Chest PA and Lateral IMPRESSION: No acute cardiopulmonary findings or changes. Negative for new consolidation, atelectasis or other infiltrates. Normal cardiac size. Negative for pleural effusion. Stable atherosclerotic changes of the thoracic aorta. Electronically Signed: Thea Prince MD at 15:54 EST , Service support ,
== END ==
PROVIDERS: PCP Family Medicine; Referring Provider Family Medicine; Visit Provider Family Medicine
DX: R05 Cough (principal)
CPT/HCPCS: 71046

== ENCOUNTER → 2020-10-11 09:43 | Outpatient (CLI) | payer MEDICARE, OTHER, SELFPAY ==
[2020-08-05 11:23] VITALS: BMI 20.6
--- NOTE | 2020-10-11 09:52 | RAD_ITS ---
STUDY: AIR CONTRAST UPPER GI SERIES REASON FOR EXAM: Female, 85 years old. With also 13mm tablet. Cannot come on Fri, , Fridays* FLUOROSCOPY TIME (if supplied): (1:11) minutes/seconds. 17 images were obtained. TECHNIQUE: SINGLE CONTRAST AND AIR CONTRAST FLUOROSCOPIC IMAGES. COMPARISON: Comparison is made with prior examination dated 06/03/2019. FINDINGS: The cervical esophagus demonstrates normal motility without aspiration. There is no stricture or extrinsic mass effect. No intraluminal polypoid mass is identified. The thoracic esophagus distends well without stricture or mucosal fold thickening. No mucosal ulcerations are identified. There is no extrinsic mass effect. There are no diverticula. No hiatal hernia or gastroesophageal reflux was identified. The patient ingested a 12 mm tablet of barium. The tablet is trapped at the gastroesophageal junction. The stomach distends well without mucosal fold thickening or mucosal ulceration. There is no intraluminal mass. The duodenal bulb is freely distensible without deformity or ulceration. The duodenal sweep is normal in position and caliber. RAD/Upper GI w/BA Swallow IMPRESSION: The ingested 12 mm tablet of barium is trapped at the gastroesophageal junction. Correlation with endoscopic evaluation is recommended. Electronically Signed: Greg Harding MD at 13:49 EDT , Service support ,
== END ==
PROVIDERS: PCP Family Medicine; Referring Provider Family Medicine; Visit Provider Family Medicine
DX: K21.00 Gastro-esophageal reflux disease with esophagitis, without bleeding (principal)
CPT/HCPCS: 74246

== ENCOUNTER → 2020-11-22 13:28 | Outpatient (CLI) | payer MEDICARE, OTHER, SELFPAY ==
[2020-08-05 11:23] VITALS: BMI 20.6
--- NOTE | 2020-11-22 13:35 | CT_ITS ---
STUDY: CT LUMBAR SPINE WITHOUT CONTRAST REASON FOR EXAM: Female, 85 years old. increasing leg weakness/gait disturbance. hx L1 fracture. spina RADIATION DOSAGE (If Supplied By Facility): CTDIvol = ( 13.82 ) mGy, DLP = ( 335.84 ) mGycm TECHNIQUE: The patient was scanned in a multi detector CT scanner. High resolution transaxial imaging was performed. Images were obtained from T12 to S1. Sagittal and coronal images were reconstructed. Individualized dose optimization techniques were used for this CT. COMPARISON: None FINDINGS: Normal lumbar lordosis. There is no substantial scoliosis. Chronic moderate compression fracture of L1 with 5 mm retropulsion of the superior endplate into the spinal canal producing mild spinal stenosis. Multiple Tarlov cysts within the sacrum. L1-2: Normal endplates. Normal disc height and morphology. Normal bilateral facet joints. Normal central canal and bilateral lateral recesses. Normal bilateral intervertebral neural foramina. L2-3: Normal endplates. Normal disc height and morphology. Normal bilateral facet joints. Normal central canal and bilateral lateral recesses. Normal bilateral intervertebral neural foramina. L3-4: Mild bilateral facet hypertrophy and moderate ligament flavum hypertrophy. Moderate broad disc protrusion produces moderate spinal stenosis and moderate bilateral neural foraminal stenosis. L4-5: Mild bilateral facet hypertrophy and ligament flavum hypertrophy. Mild broad disc protrusion produces mild spinal stenosis and mild bilateral neural foraminal stenosis. L5-S1: Moderate broad disc protrusion produces moderate spinal stenosis and moderate bilateral neural foraminal stenosis. Normal visualized paraspinous soft tissue structures. CT/Spine Lumbar without Contrast IMPRESSION: 1. Chronic moderate wedge compression fracture of L1 with 5 mm retropulsion of the superior endplate and the spinal canal producing mild spinal stenosis. 2. Degenerative disc disease as described above. Electronically Signed: Jose Mahoney MD at 9:27 EDT Tel , Service support ,
== END ==
PROVIDERS: PCP Family Medicine; Referring Provider Family Medicine; Visit Provider Family Medicine
DX: M48.061 Spinal stenosis, lumbar region without neurogenic claudication (principal)
CPT/HCPCS: 72131

== ENCOUNTER → 2020-11-27 12:48 | Outpatient (CLI) | payer MEDICARE, OTHER, SELFPAY ==
[2020-08-05 11:23] VITALS: BMI 20.6
--- NOTE | 2020-11-27 13:39 | SP.MBSS_ITS ---
Modified Barium Swallow - Patient Information Study Date: 11/27/20 Study Time: 13:00 Direct Billable Minutes: 125 Total Minutes procedure & reportin Diagnosis: Pharyngeal Dysphagia Referring Physician: Poly Rosenbaum Reason for Referral: Objective assessment of swallow function under fluoroscopy recommended d/t reported coughing and choking w/ both solids and liquids every time I eat. Medical History: Abdominal Pain, Acid Reflux, Arthritis, Constipation, Depression, Hx Breast Cancer Recent Imaging: Esophagram 10/11/2020 IMPRESSION: The ingested 12 mm tablet of barium is trapped at the gastroesophageal junction. Correlation with endoscopic evaluation is recommended. Dentition: Natural Teeth Mental Status: WNL Comment: Significantly [place]SE[place] which negatively impacted ability to comprehend and execute commands Respiratory Status: Oxygenating on Room Air - Penetration-Aspiration Scale Penetration-Aspiration Scale: OBJECTIVE ASSESSMENT OF SWALLOW FUNCTION (QUANTITATIVE ? PER TRIAL): PENETRATION / ASPIRATION SCALE (NUNEZ): 1 = does not enter airway 2 = enters airway/above vocal folds/ejected 3 = enters airway/above vocal folds/not ejected 4 = enters airway/contacts vocal folds/ejected 5 = enters airway/contacts vocal folds/not ejected 6 = enters airway/below vocal folds/ejected 7 = enters airway/below vocal folds/not ejected despite effort 8 = enters airway/below vocal folds/no effort VIDEOFLOROSCOPIC SCALE SCORE (NUNEZ): Grade I = aspiration of material that has penetrated into the laryngeal vestibule, intact cough reflex Grade II = aspiration < 10 % of the bolus, intact cough reflex Grade III = aspiration of < 10 % of the bolus, reduced cough reflex or aspiration of > 10 % of the bolus, intact cough reflex Grade IV = aspiration of > 10 % of the bolus, reduced cough reflex - Penetration-Aspiration Scale Score Thin Liquid via teaspoon Result: 4= enters airway/contacts vocal folds/ejected Thin Liquid via teaspoon Trial 2 Result: 8= enters airway/below vocal folds/no effort Comment: Grade III = aspiration of < 10 % of the bolus, reduced cough reflex - TRACE amount of aspiration Thin Liquid via large single sip from cup Result: 8= enters airway/below vocal folds/no effort Comment: Grade III = aspiration of < 10 % of the bolus, reduced cough reflex - TRACE amount of aspiration Thin Liquid via small single sip from cup Result: 2= enter airway/above vocal folds/ejected Thin Liquid via single sip from straw Result: 2= enter airway/above vocal folds/ejected Pudding Result: 1= does not enter airway Pudding Trial 2 Result: 1= does not enter airway Cookie Result: 4= enters airway/contacts vocal folds/ejected Thin Liquid via small single sip from cup Trial 2 Result: 2= enter airway/above vocal folds/ejected Thin Liquid via small single sip from cup Chin tuck Result: 2= enter airway/above vocal folds/ejected [place] Thick Liquid via small single sip from cup Chin tuck Result: 1= does not enter airway [place] Thick Liquid via small single sip from cup Result: 2= enter airway/above vocal folds/ejected - Oral Phase Labial Seal: No Labial Escape Tongue Control During Bolus Hold: Cohesive bolus between tongue to palatal seal Bolus Preparation/Mastication: Slow prolonged chewing/mashing with complete recollection Bolus Transport/Lingual Motion: Slowed tongue motion Oral Residue: Residue collection on oral structures - Pharyngeal Phase Initiation of Pharyngeal Swallow: Bolus head in pyriforms Soft Palate Elevation: No bolus between soft palate and pharyngeal wall Laryngeal Elevation: Partial superior movement thyroid cart/partial apprx aryt- epig petiole Anterior Hyoid Excursion: Partial anterior movement Epiglottic Movement: Partial inversion Laryngeal Vestibule Closure at Height of Swallow: Complete; no air/contrast in laryngeal vestibule Pharyngeal Stripping Wave: Present - complete Pharyngoesophageal Segment Opening: Parital distension and partial duration; parital obstruction of flow Tongue Base Retraction: Narrow column of contrast between tongue base & post. pharyngeal wall Pharyngeal Residue: Collection of residue within or on pharyngeal structures - Esophageal Phase Esophageal Clearance: Esophageal retention - Treatment Strategies Effects of treatment strategies attemped:: Reduction in bolus volume (small sip) = effective Chin tuck = effective Double swallow = effective - Diagnosis/Impression Diagnosis: mild oropharyngeal dysphagia Impression: Oropharyngeal swallow function is marked by: * Prolonged mastication of solid textures w/ delayed lingual motion and delayed swallow onset * Trace penetration of contrast which spilled into the laryngeal vestibule prior to swallow onset during mastication of solid textures; independently initiated cough response was sufficient to expel contrast from the laryngeal vestibule * Thin liquid spillage over the posterior laryngeal surface of the epiglottis, pooling into the pyriforms prior to swallow onset, trace amount of contrast entering the laryngeal vestibule and contacting the vocal folds before the swallow, along w/ contrast from the pyriforms transiently penetrating into the laryngeal vestibule during the swallow; trace aspiration of pre-prandial penetration which was silent in nature * Base of tongue/oral residue retention noted post deglutition * Reduced laryngeal vestibule closure/airway protection is resultant of incomplete anterior hyoid movement w/ incomplete epiglottic inversion * Pharyngeal residue retention (valleculae, aryepiglottic folds) penetrating into the laryngeal vestibule post deglutition (trace) * Improved swallow onset timing w/ smaller sips, less pharyngeal residue post deglutition * Chin tuck posture widened vallecular space and improved bolus containment w/ a reduction in laryngeal vestibule penetration * Prominent cricopharyngeus noted, although did not impede bolus flow through the PES into the esophagus * Aspiration was of extremely small/trace amount, no cough response appreciated initially, although sufficient cough strength to eject aspirate was noted once sensate to trace contrast below the vocal folds - Recommendations Diet: Regular Textures, Thin Liquids Comment: Aspiration Precautions Recommended: * small sips, one sip at a time * small bites * chin tuck w/ swallow to widen vallecular space and reduce likelihood of penetration before/during deglutition * double swallow as needed/at reasonable intervals to reduce pharyngeal residue retention * avoid mixed consistencies (moist/juicy fruits, cereal w/ milk, soup w/ broth and solid textures) * seated upright w/ hip flexion at 90 degrees during intake * remain upright fro 30-60 minutes after intake (GERD precautions) Recommend Repeat Modified Barium Swallow: TBD Need for Skilled Speech Therapy Services: Yes Comment: Skilled Dysphagia Intervention Recommended Targeting: * continued diet texture management * training and implementation of recommended compensatory strategies as detailed above * training and implementation of recommended oropharyngeal strengthening exercises to facilitate improved swallow onset timing, hyolaryngeal excursion, epiglottic inversion, and laryngeal vestibule closure/pressure Education Completed: 1. Described result of evaluation., 2. Pt understands evaluation & agrees with goals and treatment plan., 4. Family/caregivers understand evaluation & agree w/ goals & tx plan. Comment: Results and recommendations were provided to the patient and her daughter immediately following MBS conclusion. Images were reviewed w/ both to improve comprehension of the findings and rationale for compensatory strategy recommendations. Anticipate the need for ongoing education. - Status Active ST Patient: Active - Contact Information [facility] Speech Therapy:: Felicia Adair M.A., CCC-JUNIOR PROGRAMMER ANALYST [facility] [address] [place] [address] [place] [address] [email or web address]
== END ==
PROVIDERS: PCP Family Medicine; Referring Provider Surgery; Visit Provider Surgery
DX: R13.13 Dysphagia, pharyngeal phase (principal)
CPT/HCPCS: 74230; 92611

== ENCOUNTER → 2020-12-04 10:57 | Outpatient (CLI) | payer MEDICARE, OTHER, SELFPAY ==
[2020-08-05 11:23] VITALS: BMI 20.6
--- NOTE | 2020-12-04 11:04 | RAD_ITS ---
STUDY: X-RAY - LEFT FOOT CLINICAL: Female, 85 years old. PAIN AND SWELLING TECHNIQUE: 3 view(s) of the foot. COMPARISON: None. FINDINGS: Normal talus, calcaneus, and tarsal bones. Normal visualized subtalar, talonavicular, calcaneocuboid, tarsal and tarsometatarsal articulations. Normal metatarsi. Normal metatarsophalangeal joint of the great toe. Normal tibial and fibular sesamoid bones. Normal interphalangeal joint of the great toe. Normal phalanges of the great toe. Normal second through fifth metatarsophalangeal joints. Normal interphalangeal joints and phalanges of the lesser toes. The soft tissue structures are unremarkable. RAD/Foot min 3 Views IMPRESSION: Normal x-ray examination of the foot. Electronically Signed: Jose Mahoney MD at 13:31 EDT Tel , Service support ,
--- NOTE | 2020-12-04 11:04 | RAD_ITS ---
STUDY: X-RAY - LEFT ANKLE REASON FOR EXAM: Female, 85 years old. PAIN AND SWELLING TECHNIQUE: 3 view(s) of the ankle. COMPARISON: None. FINDINGS: Normal visualized distal tibia and fibula. Normal medial and lateral malleoli. Normal tibiotalar articulation and ankle mortise. Normal visualized talus and calcaneus. The visualized subtalar, talonavicular, calcaneocuboid and tarsal articulations are normal. The soft tissue structures are unremarkable. RAD/Ankle min 3 Views IMPRESSION: Normal x-ray examination of the ankle. Electronically Signed: Jose Mahoney MD at 13:31 EDT Tel , Service support ,
== END ==
PROVIDERS: PCP Family Medicine; Referring Provider Nurse Practitioner Family; Visit Provider Nurse Practitioner Family
DX: M25.572 Pain in left ankle and joints of left foot (principal); M25.472 Effusion, left ankle
CPT/HCPCS: 73610; 73630

== ENCOUNTER → 2021-02-05 12:13 | Outpatient (CLI) | payer MEDICARE, OTHER, SELFPAY ==
[2020-12-06 09:05] VITALS: BMI 20.6
[2021-02-05 15:43] LABS: ALB/GLOB Ratio 1.1 RATIO (0.9-2.4); AST(SGOT) 21 U/L (15-37); Alanine Aminotransfer ALT/SGPT 29 U/L (13-56); Alkaline Phosphatase 71 U/L (45-117); Anion Gap 4 (5-15); BUN 20 mg/dL (7-18); BUN/Creat Ratio 16.8 RATIO (10-20); Calcium,Total 9.3 mg/dL (8.5-10.1); Chloride 105 mmol/L (98-107); Creatinine, Serum 1.19 mg/dL (0.55-1.02); EST Glomerular Filtration Rate 46 mL/min (>60); Est Glom Filt Rate - Afr Amer 56 mL/min (>60); Globulin 3.5 g/dL (2.2-4.2); Glucose 89 mg/dL (74-106); Potassium 4.3 mmol/L (3.5-5.1); Protein, Total 7.5 g/dL (6.4-8.2); Sodium Level 139 mmol/L (136-145)
== END ==
PROVIDERS: PCP Family Medicine; Visit Provider Family Medicine
DX: I10 Essential (primary) hypertension (principal)
CPT/HCPCS: 36415; 80053

== ENCOUNTER → 2021-02-06 14:06 | Outpatient (CLI) | payer MEDICARE, OTHER, SELFPAY ==
[2020-12-06 09:05] VITALS: BMI 20.6
== END ==
PROVIDERS: PCP Family Medicine; Referring Provider Family Medicine; Visit Provider Family Medicine
DX: I10 Essential (primary) hypertension (principal)
CPT/HCPCS: 82043; 82570

== ENCOUNTER → 2021-02-08 | Outpatient (CLI) | payer MEDICARE, OTHER, SELFPAY ==
[2021-02-08 15:23] LABS: Microalbumin,Random Urine 10.7 mg/L (NO RANGE EST.); Microalbumin:Creatinine Ratio 24.8 mg/g CRE (<30 mg/g CRE)
== END | disposition home or self-care (01) ==
LOC: LABSPEC 11:03
PROVIDERS: PCP Family Medicine; Referring Provider Family Medicine; Visit Provider Family Medicine
DX: I10 Essential (primary) hypertension (principal)
CPT/HCPCS: 82043; 82570

== ENCOUNTER → 2021-04-29 15:07 | Outpatient (CLI) | payer MEDICARE, OTHER, SELFPAY ==
[2021-04-29 15:09] LABS: Mucous, Urine 0 SEEN /hpf (<or=2+)
[2021-04-29 15:15] LABS: Color, Urine Yellow (Yellow); Glucose, Dipstick Normal (Normal); Ketone-Dipstick Negative (Negative); Leukocyte Esterase-Dipstick 500 /ul (Negative); Nitrite-Dipstick Negative (Negative); Occult Blood-Urine 25 /ul (Negative); Protein-Dipstick 30 mg/dl (Negative); Urine Bilirubin Dipstick Negative (Negative); Urine Clarity Cloudy (Clear); Urine Urobilinogen Normal (Normal)
[2021-04-29 15:29] LABS: Calcium Oxalate Crystals Ur 1+ /hpf (<or=2+); Squamous Epithelial Cells - UA 5-10 SEEN /hpf (5-10); White Blood Cells >100 SEEN /hpf (0-5)
[2021-04-29 15:30] LABS: Bacteria 2+ /hpf (None Seen); Red Blood Cells-Urine 5-10 SEEN /hpf (0-5)
== END ==
PROVIDERS: PCP Family Medicine; Referring Provider Physician Assistant Medical; Visit Provider Physician Assistant Medical
DX: N39.0 Urinary tract infection, site not specified (principal)
CPT/HCPCS: 81001; 87077; 87086; 87088; 87186

== ENCOUNTER → 2021-05-11 | Outpatient (CLI) | payer MEDICARE, OTHER, SELFPAY ==
[2021-05-11 16:26] LABS: Bacteria 0 SEEN /hpf (None Seen); Mucous, Urine 0 SEEN /hpf (<or=2+); Red Blood Cells-Urine 0 SEEN /hpf (0-5)
[2021-05-11 18:32] LABS: Color, Urine Yellow (Yellow); Glucose, Dipstick Normal (Normal); Ketone-Dipstick Negative (Negative); Leukocyte Esterase-Dipstick 100 /ul (Negative); Nitrite-Dipstick Negative (Negative); Occult Blood-Urine 10 /ul (Negative); Protein-Dipstick 15 mg/dl (Negative); Urine Bilirubin Dipstick Negative (Negative); Urine Clarity Sl. Cloudy (Clear); Urine Urobilinogen Normal (Normal)
[2021-05-11 18:39] LABS: Calcium Oxalate Crystals Ur 2+ /hpf (<or=2+); Squamous Epithelial Cells - UA 0-5 SEEN /hpf (5-10); White Blood Cells 0-5 SEEN /hpf (0-5)
== END | disposition home or self-care (01) ==
LOC: LABSPEC 16:25
PROVIDERS: PCP Family Medicine; Referring Provider Family Medicine; Visit Provider Family Medicine
DX: R35.0 Frequency of micturition (principal)
CPT/HCPCS: 81001; 87086; 87088

== ENCOUNTER → 2021-07-10 15:20 | Outpatient (CLI) | payer MEDICARE, OTHER, SELFPAY ==
[2021-07-10 15:22] LABS: Mucous, Urine 0 SEEN /hpf (<or=2+)
[2021-07-10 18:53] LABS: Color, Urine Yellow (Yellow); Glucose, Dipstick 50 mg/dl (Normal); Ketone-Dipstick Negative (Negative); Leukocyte Esterase-Dipstick 500 /ul (Negative); Nitrite-Dipstick Positive (Negative); Occult Blood-Urine 10 /ul (Negative); Protein-Dipstick 30 mg/dl (Negative); Urine Bilirubin Dipstick Negative (Negative); Urine Clarity Sl. Cloudy (Clear); Urine Urobilinogen Normal (Normal)
[2021-07-10 19:03] LABS: Bacteria 2+ /hpf (None Seen); Squamous Epithelial Cells - UA 10-25 SEEN /hpf (5-10); White Blood Cells 10-25 SEEN /hpf (0-5)
[2021-07-10 19:04] LABS: Red Blood Cells-Urine 0 SEEN /hpf (0-5)
== END ==
PROVIDERS: PCP Family Medicine; Visit Provider Registered Nurse
DX: R39.9 Unspecified symptoms and signs involving the genitourinary system (principal)
CPT/HCPCS: 81001; 87086; 87088

== ENCOUNTER 2021-09-25 11:30 | Outpatient (RCR) | payer MEDICARE, OTHER, SELFPAY ==
--- NOTE | 2021-08-23 14:41 | HP.PTEVAL ---
Patient's Visit Information OBED WRIGHT is a 86 year old F referred to Physical Therapy by Dr. Marco Angel MD with a diagnosis of spinal stenosis, hip OA, poor balance. Date of Evaluation: 08/23/21 Physical Therapist: Marco Rosenberg, DPT, OCS, CSCS - Visit Plan Plan: Neurocom test next session then 1-2x/week for 2-4 weeks for. 1. home strength program for posture and LE strength. 2. balance HEP per results of neurocom and likely need vestibular. 3. Consider treat L neck with MH and STM for pain if ROM not improving the pain. - Subjective Dr. Angel sent over because she loses her balance. Has fallen a couple times. Usually in winter and just loses balance. Has cane but does not want to use it. No spinning or dizzyness. No neuropathy. Last fall was a few months ago. Fell at 5 below when it was slippery. No regualr exercises. Does some sink exe every now and then. Lives in a [place] alonewith stairs with railing. Not employed. Spends day reading and looking at cat. Sleep is not great, gets up to pee alot, up every hour every night. Rails all over bathroom and gets in and out of tub easily. Bed transfers are good. - Pain neck R Pain Intensity (Out of 10): 0 Pain Intensity Range: 0, 6 - Objective Walks with knees bent slightly and hunched over back to PT I on firm flat surface. Trasnfers bed and chair I. Steps with one rail I up and down. does some wavering with turns but otherwise balance appears good. AROM LE WFL but tightness obvious in hip flexors, HS and gastroc with attempted ROM. UE AROM WFL. Neck aROM L rot pain L side and 45, r rotation is 50 no pain, ext 38 and no pain. Posture is forward head and kyphoitc T/S. strenth LE 4-/5 without myotomal problems. LB AROM stiff in flexion and ext but no pain. Hip AROM limited in Rotation with some pain with GABY. reflexes 2/3 patella and achilles. Sensation to gross light touch in LE WNL B. coordination to reciprocal toe and heel tap shows mod deficits. [place] to lemon test is good. SLS unable - Balance/Special Test Scores Functional Gait Assessment Score: 22 % Disability: 26.6700 CATSIB Score (Max score 120 seconds): 64 Lower Extremity Functional Score: 27 TUG Test Time Seconds: 12 30 Second Chair Rise Test Seconds: 15 - Goals Goal 1:: FGA to diminish fall risk Goal Time Frame: 4-6 Weeks Goal 2:: I approp HEP to minimize future problems. Goal Time Frame: 2-4 Weeks Goal 3:: neurocom balance test per order adn results. Goal Time Frame: 2 Weeks - Rehabilitation Potential Physical Therapy Diagnosis: degenerative changes and sedentarism leading to worsening balance and fallr isk. Rehabilitation Potential: Fair - Anticipated Interventions Patient/Client Instruction: Educate patient on: Condition, Plan of Care For the Purpose of:: To decrease pain, To increase ROM, To improve nutrient delivery to tissue, To improve safety Therapeutic Exercise to Include: Strength training, Balance training, Flexibilty training, Passive ROM, Active ROM For the Purpose of:: To increase ROM, To improve muscle performance and motor function, To increase tolerance to activity/condition/position, To improve ability of physical actions for home/community/work/leisure, To improve gait and locomotor functions Manual Therapy Techniques to Include: Passive ROM, Soft tissue mobilization For the Purpose of:: To decrease pain, To increase ROM Thermo therapy (hot pack): Yes For the Purpose of:: To decrease pain Thank you for the opportunity to evaluate your patient. For Medicare and Medicare HMO plans, please review the plan of care and approve it. It will need to be FAXED BACK to us at [phone] for Medicare purposes. For Medicare only, by signing this I certify the plan of care. Please let me know if there are questions or concerns regarding this plan of care. Physician Signature: Date:
--- NOTE | 2021-08-28 13:29 | HP.PTCOM ---
PT Communication Note 08/28/[address] Marco Angel MD , Thank you for the referral of magnolia to [facility] for balance training and testing. I have enclosed a copy of her results for your review. In summation, she scored low on vestibular portion of the Sensory Organization Test. She scored low of forward weight shifting excursion on the Limits of stability Test. With these results in mind, i plan to see her 2x/week for 3-4 weeks to teach her an HEP that will address these as well as her strength issues. Please contact me if there are questions regarding her physical therapy. Sincerely, Marco Rosenberg, DPT, OCS, CSCS Contact Information
--- NOTE | 2021-09-25 12:23 | HP.PTDCSUM ---
It has been my pleasure to treat OBED WRIGHT referred by Dr. Marco Angel MD, with the diagnosis of spinal stenosis, hip OA, poor balance for a total of 6 visit(s). Discharge Date: 09/25/21 Please see the following information for a summary of their discharge status. Subjective: Doing home exercises for balance and strength. Neck pain is intermittent at every other day with reading and gets knot in back. It goes away with movement. Still not feeling great with balance. Activities are pretty normal at home. No falls lately. Sees pain doctor for spine and will see again paul month. neck R Pain Intensity (Out of 10): 0 % Improvement: 10 Objective/Function: Neck ROM ext still very limited. Not painful today. FGA is +1 from intiial eval and patient feels comfortable continuing her balance and strength ex at home. May be appropriate for spinal treatment for pain and may ask pain doctor for prescription. Goal 1:: FGA to diminish fall risk Goal Progress: Progressing Goal 2:: I approp HEP to minimize future problems. Goal Progress: Goal Met Goal 3:: neurocom balance test per order adn results. Goal Progress: Goal Met Plan: d/c Discharge Comments: Pt to continue via HEP. may ask for script for spinal treatment. If there are questions or concerns regarding this patient's physical therapy, please feel free to call me at [phone]. Thank you for the referral of this patient. Sincerely, Marco Rosenberg, DPT, OCS, CSCS Balance/Gait/Functional tests - Balance/Special Test Scores Functional Gait Assessment Score: 23 % Disability: 23.3400 CATSIB Score (Max score 120 seconds): 64 Lower Extremity Functional Score: 38 TUG Test Time Seconds: 12 Tug Test: <20 sec.=mostly independent 30 Second Chair Rise Test Seconds: 15
== END 2021-09-25 14:28 | disposition home or self-care (01) ==
LOC: PT 11:30
PROVIDERS: PCP Family Medicine; Referring Provider Family Medicine; Visit Provider Family Medicine
DX: M48.00 Spinal stenosis, site unspecified (principal); M16.9 Osteoarthritis of hip, unspecified; R26.9 Unspecified abnormalities of gait and mobility
CPT/HCPCS: 97110; 97162; 97164; 97750

== ENCOUNTER 2021-10-31 11:00 | Outpatient (RCR) | payer MEDICARE, OTHER, SELFPAY ==
--- NOTE | 2021-10-10 11:56 | HP.PTEVAL ---
Patient's Visit Information OBED WRIGHT is a 86 year old F referred to Physical Therapy by Dr. Marco Angel MD with a diagnosis of spinal stenosis. Date of Evaluation: 10/10/21 Physical Therapist: Marco Rosenberg, DPT, OCS, CSCS - Visit Plan Frequency: 2x /Week Duration: 4 Weeks Plan: 2x/week for 4 weeks for... 1. flexion mobs L/S, flexion ROM and NS positioning. Imprve pelvic movement. 2. core strength in NS. 3. STM to LB paraspinals and L quad, itb ...MH - Subjective LB hurts and up into neck It has been hurting for two years and is not improving. Sees pain management to get a shot which helps for a few days. L leg pain to ankle intermittent worse with sitting or walking. Walk through [employer] is all she can do to get back to her. Better if sits a few minutes then worse again. No numbness or tingling in leg. Working on balance at home from previous therpay. Sleep is not great due to urination but back does not keep her up. 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 Basic ADLs are I. - Pain LBP Pain Intensity (Out of 10): 9 Pain Intensity Range: 0, 9 - Objective Walks back to PT I and transfers bed and chair INoam Prescott is fair and has recently been treated for balance. Very llittle pelvic movement and limited stiff ROM LB ext max limited, flexion mod limited. SB max limited. pain swith extension. Tender to touch in lumbar paraspinals, quad, ITB L and feels good to massage it. LE AROM WFL, L knee slightly contracted flexion, HS mod tight. reflexes 2/3 patella and achilles. Sensation WNL LE. Strength LE 4-/5 without myotomal abnormalities. - slump, - SLR - Balance/Special Test Scores Oswestry Low Back Score: 19 - Goals Goal 1:: Patient feel 50% better in overall pain of LB to 4/10 at back. Goal Time Frame: 2-4 Weeks Goal 2:: pt I in appropriate HEP to limit future problems with back Goal Time Frame: 2-4 Weeks Goal 3:: oswestry score 15 or better. Goal Time Frame: 2-4 Weeks - Rehabilitation Potential Physical Therapy Diagnosis: spinal stenosis Rehabilitation Potential: Fair - Anticipated Interventions Patient/Client Instruction: Educate patient on: Condition, Plan of Care For the Purpose of:: To decrease pain, To increase ROM, To improve muscle performance and motor function, To increase tolerance to activity/condition/position, To improve ability of physical actions for home/community/work/leisure Therapeutic Exercise to Include: Strength training, Postural training, Flexibilty training, Passive ROM, Active ROM, Dynamic Lumbar Stabilization For the Purpose of:: To decrease pain, To increase ROM, To improve muscle performance and motor function, To increase tolerance to activity/condition/position Manual Therapy Techniques to Include: Mobilization, Passive ROM, Soft tissue mobilization For the Purpose of:: To increase ROM Thermo therapy (hot pack): Yes For the Purpose of:: To improve nutrient delivery to tissue Thank you for the opportunity to evaluate your patient. For Medicare and Medicare HMO plans, please review the plan of care and approve it. It will need to be FAXED BACK to us at [phone] for Medicare purposes. For Medicare only, by signing this I certify the plan of care. Please let me know if there are questions or concerns regarding this plan of care. Physician Signature: Date:
--- NOTE | 2021-10-31 11:42 | HP.PTDCSUM ---
It has been my pleasure to treat OBED WRIGHT referred by Dr. Marco Angel MD, with the diagnosis of spinal stenosis for a total of 6 visit(s). Discharge Date: Please see the following information for a summary of their discharge status. Subjective: Not a bit better. LB still hurting. Still cannot mow lawn with push mower. Pain in LB Saturday 01/20 after cooking dinner for all the kids. Focussing on NS and same old pain. Pain is across LB and into L hip. Neck still hurting. Pain management gave shot for back and is about due for another one. Sees Dr. Freeman. LBP Pain Intensity (Out of 10): 6 % Improvement: 0 Objective/Function: ROM lumbar spine no major changes but no increase pain today with extension or flexion. Walks well but rotates L pelvis posterior still to avoid hip extension. L hip has positive OA tests with pain GABY and FADDIR. Extension ROM very tight L, quad very tight. Goal 1:: Patient feel 50% better in overall pain of LB to 4/10 at back. Goal Progress: Not Progressing Goal 2:: pt I in appropriate HEP to limit future problems with back Goal Progress: Not Progressing Goal 3:: oswestry score 15 or better. Goal Progress: Not Progressing Plan: d/c. PT to contact Dr. Angel/Dr. Freeman regarding next appropriate step due to lack of progress with pain in therapy. She has had injections in past and may find out if another injection is approrpiate. If no other options, I asked her to consider water therapy or continued NS strengthening/STM. She will stretch and continue NS strength at home in the meantime while she awaits f/u with doctor. If there are questions or concerns regarding this patient's physical therapy, please feel free to call me at [phone]. Thank you for the referral of this patient. Sincerely, Marco Rosenberg, DPT, OCS, CSCS Balance/Gait/Functional tests - Balance/Special Test Scores Oswestry Low Back Score: 21
== END 2021-10-31 12:20 | disposition home or self-care (01) ==
LOC: PT 11:00
PROVIDERS: PCP Family Medicine; Referring Provider Family Medicine; Visit Provider Family Medicine
DX: M48.061 Spinal stenosis, lumbar region without neurogenic claudication (principal); M25.552 Pain in left hip
CPT/HCPCS: 97110; 97140; 97162; 97164

== ENCOUNTER → 2021-12-26 | Outpatient (CLI) | payer MEDICARE, OTHER, SELFPAY ==
[2021-12-26 15:38] LABS: Mucous, Urine 0 SEEN /hpf (<or=2+)
[2021-12-26 16:40] LABS: Color, Urine Yellow (Yellow); Glucose, Dipstick Normal (Normal); Ketone-Dipstick Negative (Negative); Leukocyte Esterase-Dipstick 500 /ul (Negative); Nitrite-Dipstick Negative (Negative); Occult Blood-Urine 10 /ul (Negative); Protein-Dipstick 30 mg/dl (Negative); Specific Gravity, Urine 1.025 (1.002-1.030); Urine Bilirubin Dipstick Negative (Negative); Urine Clarity Clear (Clear); Urine Urobilinogen Normal (Normal)
[2021-12-27 02:02] LABS: Bacteria 3+ /hpf (None Seen); Red Blood Cells-Urine 0-5 SEEN /hpf (0-5); Squamous Epithelial Cells - UA 10-25 SEEN /hpf (5-10); White Blood Cells 5-10 SEEN /hpf (0-5)
[2021-12-27 02:03] LABS: Triple Phosphate Crystals Ur 1+ /hpf (<or=1+)
== END | disposition home or self-care (01) ==
LOC: LAB 15:23
PROVIDERS: PCP Family Medicine; Visit Provider Family Medicine
DX: R39.9 Unspecified symptoms and signs involving the genitourinary system (principal)
CPT/HCPCS: 81001; 87086; 87088

== ENCOUNTER → 2022-03-25 | Outpatient (CLI) | payer MEDICARE, OTHER, SELFPAY ==
[2022-03-25 15:09] LABS: Mucous, Urine 0 SEEN /hpf (<or=2+); Red Blood Cells-Urine 0 SEEN /hpf (0-5)
[2022-03-25 17:56] LABS: Color, Urine Yellow (Yellow); Glucose, Dipstick Normal (Normal); Ketone-Dipstick Negative (Negative); Leukocyte Esterase-Dipstick 500 /ul (Negative); Nitrite-Dipstick Positive (Negative); Occult Blood-Urine 10 /ul (Negative); Protein-Dipstick 15 mg/dl (Negative); Urine Bilirubin Dipstick Negative (Negative); Urine Clarity Sl. Cloudy (Clear); Urine Urobilinogen Normal (Normal)
[2022-03-25 18:08] LABS: White Blood Cells 25-50 SEEN /hpf (0-5)
[2022-03-25 18:09] LABS: Bacteria 3+ /hpf (None Seen); Squamous Epithelial Cells - UA 0-5 SEEN /hpf (5-10)
[2022-03-25 18:28] LABS: AST(SGOT) 18 U/L (15-37); Alanine Aminotransfer ALT/SGPT 21 U/L (13-56); Albumin, Serum 3.7 g/dL (3.2-5.0); Alkaline Phosphatase 56 U/L (45-117); Anion Gap 8 (5-15); BUN 24 mg/dL (7-18); BUN/Creat Ratio 17.9 RATIO (10-20); Calcium,Total 9.3 mg/dL (8.5-10.1); Chloride 105 mmol/L (98-107); Creatinine, Serum 1.34 mg/dL (0.55-1.02); EST Glomerular Filtration Rate 40 mL/min (>60); Est Glom Filt Rate - Afr Amer 48 mL/min (>60); Globulin 3.6 g/dL (2.2-4.2); Glucose 90 mg/dL (74-106); Potassium 4.1 mmol/L (3.5-5.1); Protein, Total 7.3 g/dL (6.4-8.2); Sodium Level 142 mmol/L (136-145); Thyroid Stim Hormone (TSH) 1.27 uIU/mL (0.358-3.74)
[2022-03-25 18:31] LABS: Microalbumin,Random Urine 29.5 mg/L (NO RANGE EST.); Microalbumin:Creatinine Ratio 25.2 mg/g CRE (<30 mg/g CRE)
== END | disposition home or self-care (01) ==
LOC: MTLAB 15:07
PROVIDERS: PCP Family Medicine; Referring Provider Family Medicine; Visit Provider Family Medicine
DX: I10 Essential (primary) hypertension (principal); R35.0 Frequency of micturition
CPT/HCPCS: 36415; 80053; 81001; 82043; 82570; 84443; 87077; 87086; 87088; 87186

== ENCOUNTER → 2022-12-10 | Outpatient (CLI) | payer MEDICARE, OTHER, SELFPAY ==
[2022-12-10 15:32] LABS: ALB/GLOB Ratio 1.2 RATIO (0.9-2.4); AST(SGOT) 17 U/L (15-37); Alanine Aminotransfer ALT/SGPT 16 U/L (13-56); Albumin, Serum 3.6 g/dL (3.2-5.0); Alkaline Phosphatase 69 U/L (45-117); Anion Gap 8 (5-15); BUN 30 mg/dL (7-18); BUN/Creat Ratio 23.1 RATIO (10-20); Calcium,Total 9.1 mg/dL (8.5-10.1); Chloride 108 mmol/L (98-107); EST Glomerular Filtration Rate 41 mL/min (>60); Est Glom Filt Rate - Afr Amer 50 mL/min (>60); Globulin 3.1 g/dL (2.2-4.2); Glucose 71 mg/dL (74-106); Potassium 4.7 mmol/L (3.5-5.1); Protein, Total 6.7 g/dL (6.4-8.2); Sodium Level 144 mmol/L (136-145)
== END | disposition home or self-care (01) ==
LOC: MFPLAB 12:10
PROVIDERS: PCP Family Medicine; Visit Provider Family Medicine
DX: I10 Essential (primary) hypertension (principal)
CPT/HCPCS: 36415; 80053

== ENCOUNTER → 2022-12-26 | Outpatient (CLI) | payer MEDICARE, OTHER, SELFPAY ==
--- NOTE | 2022-12-26 12:31 | BI_ITS ---
MAMMOGRAPHY - BILATERAL SCREENING REASON FOR EXAM: Female, 87 years old. Routine annual screening examination. PERTINENT HISTORY: Sister with breast cancer. Remote bilateral breast biopsies. TECHNIQUE: Digital bilateral breast anna (3D mammographic acquisition) in the CC and MLO projections. 2-D mediolateral oblique (MLO) and craniocaudad (CC) views of both breasts were obtained. CAD: Full Field Digital Mammography with Computer Added Detection was performed. COMPARISON: Comparison is made with prior study August 16, 2016 and August 14, 2015. FINDINGS: Breast Composition: The breasts are heterogeneously dense, which may obscure small masses. There are no dominant masses or suspicious calcifications. Stable asymmetry of the breast. Left breast is smaller than the right. Stable deformity of the lateral portion of the left breast most likely secondary to prior surgical biopsies. No other significant abnormalities are identified. There has been no significant change since the prior study. BI/SCRN MAMM (CAD)W/ANNA BILAT IMPRESSION: Stable bilateral screening mammogram. Yearly follow-up mammogram recommended. (A) ASSESSMENT CATEGORY: BIRADS Category 2: Benign. A letter regarding these results will be sent to the patient by the facility within 30 days. Approximately 10% of breast cancers are not detected by mammography. A normal mammogram should not delay biopsy of a clinically suspicious abnormality. [id number] Electronically Signed: Greg Harding MD at 14:53 EDT ,
--- NOTE | 2022-12-26 12:47 | BD_ITS ---
STUDY: DUAL ENERGY X-RAY ABSORPTIOMETRY / DXA REASON FOR EXAM: Female, 87 years old. [id number] TECHNIQUE: Bone Mineral Density (BMD) measurements of lumbar spine and bilateral hips were obtained. COMPARISON: Comparison is made with prior study dated August 10, 2014. FINDINGS: Lumbar Spine (L1-L4): g/cm2 (0.962) / T-score (-0.8) / Z-score (2.1) Findings are suggestive of normal bone density with a low fracture risk. Left Femur Total: g/cm2 (0.663) / T-score (-2.3) / Z-score (0.1) Left Femoral Neck: g/cm2 (0.865) / T-score (0.1) / Z-score (2.7) Right Femur Total: g/cm2 (0.680) / T-score (-2.1) / Z-score (0.2) Right Femoral Neck: g/cm2 (0.760) / T-score (-0.8) / Z-score (1.7) The T-Scores on the most recent prior examination were: Lumbar Spine (L1-L4): There has been improvement of bone density since the previous examination. Left Femur Total: which represents a worsening of 5.9+. Right Femur Total: which represents a worsening of 5.1%. BD/Dexa Bone Density Study IMPRESSION: The patient is considered osteopenic as outlined below according to World Jaylen Organization (WHO) criteria with a high fracture risk. There has been worsening of bone density since the previous examination. Reference Information: The T-score is the number of standard deviations above or below the standard which is normal for young adults at their peak bone mineral density. The World Health Organization (WHO) interprets the T-scores as follows: Above -1 Normal bone density Between -1 and -2.5 Osteopenia Equal to / or below -2.5 Osteoporosis As a practical clinical guideline, osteopenia may be graded as follows: Mild -1 through -1.5 Moderate -1.6 through -2.0 Severe -2.1 through -2.4 The Z-score is the number of standard deviations above or below age-matched controls. A Z-score of less than -1.5 would be considered abnormal. References: 1. NIH Osteoporosis and Related Bone Diseases www osteo.org 2. International Society for Clinical Densitometry www iscd.org 3. National Osteoporosis Foundation www nof.org Electronically Signed: Greg Harding MD at 14:00 EDT ,
== END | disposition home or self-care (01) ==
LOC: OPBD 12:29
PROVIDERS: PCP Family Medicine; Referring Provider Family Medicine; Visit Provider Family Medicine
DX: Z12.31 Encounter for screening mammogram for malignant neoplasm of breast (principal); Z80.3 Family history of malignant neoplasm of breast; Z78.0 Asymptomatic menopausal state; M85.89 Other specified disorders of bone density and structure, multiple sites
CPT/HCPCS: 77063; 77067; 77080

== ENCOUNTER → 2023-05-21 | Outpatient (CLI) | payer MEDICARE, OTHER, SELFPAY ==
--- NOTE | 2023-05-21 11:15 | RAD_ITS ---
STUDY: X-RAY - LEFT TIBIA AND FIBULA REASON FOR EXAM: Female, 88 years old. pain TECHNIQUE: 2 view(s) of the tibia and fibula were obtained. COMPARISON: None. FINDINGS: There is demineralization of the tibia. There is demineralization of the fibula. There is no demonstrated acute fracture. Nonspecific superficial calcifications throughout the soft tissues. No focal mass. Nonspecific diffuse edema of the calf and ankle region. Vascular calcifications consistent with peripheral arterial disease. RAD/Tibia & Fibula 2 Views IMPRESSION: Diffuse osteopenia with no distinct fracture or subluxation. Electronically Signed: Carlene Marsh MD at 2:59 EST ,
== END | disposition home or self-care (01) ==
PROVIDERS: PCP Family Medicine; Referring Provider Nurse Practitioner Family; Visit Provider Nurse Practitioner Family
DX: M79.605 Pain in left leg (principal)
CPT/HCPCS: 73590

== ENCOUNTER → 2023-05-28 | Outpatient (CLI) | payer MEDICARE, OTHER, SELFPAY ==
--- NOTE | 2023-05-28 10:56 | ECHOD_ITS ---
Reason For Study: MURMUR Procedure This was a 2D Doppler, Color Flow transthoracic echocardiogram. Exam performed in department. Left Ventricle Normal left ventricle. The estimated ejection fraction is 55-60 %. Right Ventricle Normal right ventricle. Normal systolic function. Atria Normal left atrium. Mitral Valve The mitral valve is structurally normal. No prolapse or stenosis seen. Tricuspid Valve Normal tricuspid valve. Aortic Valve Normal aortic valve. Mild (1+) aortic valve insufficiency. Pulmonic Valve The pulmonic valve is not well visualized. Great Vessels Normal aortic root. Pericardium/Pleural No pericardial effusion. MMode/2D Measurements & Calculations LVIDd: 4.1 cm IVSd: 0.86 cm LVOT diam: 2.0 cm LVIDs: 2.4 cm LVPWd: 0.72 cm LVOT area: 3.1 cm2 RVDd: 3.2 cm FS: 41.6 % Ao root diam: 3.3 cm LAV(MOD-bp): 44.1 ml LVAd ap4: 24.0 cm2 LAV(MOD-bp) Indexed: 27.1 ml/m2 LVLd ap4: 7.2 cm LAV(MOD-sp2): 48.0 ml EDV(MOD-sp4): 64.7 ml LAV(MOD-sp4): 36.2 ml EDV(sp4-el): 67.3 ml LVAs ap4: 12.4 cm2 LVLs ap4: 5.6 cm ESV(MOD-sp4): 22.4 ml ESV(sp4-el): 23.5 ml EF(MOD-sp4): 65.3 % EF(sp4-el): 65.1 % LVAd ap2: 25.9 cm2 SV(MOD-sp4): 42.3 ml SV(MOD-sp2): 55.4 ml LVLd ap2: 7.1 cm EDV(MOD-sp2): 74.4 ml EDV(sp2-el): 80.3 ml LVAs ap2: 11.0 cm2 LVLs ap2: 5.2 cm ESV(MOD-sp2): 19.0 ml ESV(sp2-el): 19.8 ml EF(MOD-sp2): 74.5 % SV(sp4-el): 43.8 ml LA dimension(2D): 3.3 cm LA A4 area: 14.2 cm2 RA A4 area: 12.1 cm2 TAPSE: 1.8 cm Time Measurements MV dec time: 0.22 sec Doppler Measurements & Calculations MV E max zachary: 78.7 cm/sec Lat Peak E' Zachary: 9.7 cm/sec Med Peak E' Zachary: 7.4 cm/sec MV A max zachary: 92.1 cm/sec E/E' lat: 8.1 E/E' med: 10.6 MV E/A: 0.85 Ao V2 max: 126.9 cm/sec AI max zachary: 399.9 cm/sec MV dec slope: 363.8 cm/sec2 Ao max P.4 mmHg AI max P.0 mmHg Ao V2 mean: 95.2 cm/sec Ao mean P.9 mmHg AI dec slope: 301.1 cm/sec2 Ao V2 VTI: 26.5 cm AI P1/2t: 389.0 msec AV (velocity ratio): 0.95 JEANNE(I,D): 3.0 cm2 JEANNE(V,D): 2.7 cm2 LV V1 max: 110.7 cm/sec SV(LVOT): 78.2 ml PA V2 max: 78.4 cm/sec LV V1 max P.9 mmHg PA max PG (full): 0.33 mmHg LV V1 mean P.6 mmHg LV V1 mean: 77.7 cm/sec LV V1 VTI: 25.1 cm TR max zachary: 244.5 cm/sec TR max P.9 mmHg ECHO/Echo Complete Interpretation Summary The estimated ejection fraction is 55-60 %. Normal LV systolic function Mild to moderate aortic incompetence Grade 1 diastolic dysfunction Ordering Physician: Becky Godoy Referring Physician: Marco Angel MD Performed By: Maricruz Mcdonald RDCS
== END | disposition home or self-care (01) ==
LOC: CVS 10:55
PROVIDERS: PCP Family Medicine; Referring Provider Nurse Practitioner Family; Visit Provider Nurse Practitioner Family
DX: R94.31 Abnormal electrocardiogram [ECG] [EKG] (principal); R01.1 Cardiac murmur, unspecified
CPT/HCPCS: 93306

== ENCOUNTER → 2023-06-02 | Outpatient (CLI) | payer MEDICARE, OTHER, SELFPAY ==
--- NOTE | 2023-06-02 11:53 | STRESSREP ---
Stress Test Report Date: 06/02/2023 Procedure: Pharmacologic stress nuclear imaging study Indications: Abnormal ECG Consent: Per the patient Procedure: The patient underwent pharmacologic (Regadenoson 0.4mg ) evaluation with a peak heart rate of 84 beats per minute (63%predicted maximal heart rate) and a peak blood pressure of 122/64 mmHg. The baseline ECG demonstrated sinus rhythm with incomplete right bundle branch block. The peak pharmacologic ECG demonstrated no ischemic changes. There were no cardiac dysrhythmias pretest, during pharmacologic infusion, or recovery. There was no complaint of chest discomfort during pharmacologic infusion or recovery. The patient was injected with 11.6 millicuries of technetium 99m Cardiolite and subsequently rest SPECT Cardiolite nuclear imaging was obtained in the horizontal long, vertical long, and short axis views. The patient underwent pharmacologic (Regadenoson) evaluation. The patient was injected with 31.3 millicuries of technetium 99m Cardiolite and subsequently stress SPECT Cardiolite nuclear imaging was obtained in the horizontal long, vertical long, and short axis views. A gated Cardiolite study at peak stress was obtained. The examination was stopped secondary to completion of protocol. Rest and stress SPECT Cardiolite nuclear imaging status post realignment, normalization, and attenuation correction demonstrate no fixed or reversible perfusion defects. There is end systolic thickening and brightening. The gated Cardiolite study demonstrates myocardial thickening and inward wall motion. The reported LVEF is 75%. Impression: 1. Pharmacologic (Regadenoson) evaluation 2. Peak pharmacologic ECG with no ischemic changes. 3. There were no cardiac dysrhythmias pretest, during pharmacologic infusion, or recovery. 5. Rest and stress SPECT Cardiolite nuclear imaging demonstrate relative uniform tracer uptake and myocardial perfusion appearing within normal limits. 6. The gated Cardiolite study reports an LVEF of 75%. This note was generated with [employer] software. It may contain incorrect words, spelling, and punctuation that were not noted in checking the note before signing.
== END | disposition home or self-care (01) ==
LOC: CVS 07:32
PROVIDERS: PCP Family Medicine; Referring Provider Nurse Practitioner Family; Visit Provider Nurse Practitioner Family
DX: R94.31 Abnormal electrocardiogram [ECG] [EKG] (principal); R01.1 Cardiac murmur, unspecified
CPT/HCPCS: 78452; 93017; A9500; A4216; J2785

== ENCOUNTER 2023-06-13 14:09 | Inpatient (IN) | payer MEDICARE, OTHER, SELFPAY ==
[2023-06-13 14:23] VITALS: BP 121/57; PULSE 83; RESP 16; TEMP 36.4; O2SAT 96; BMI 19.9
[2023-06-13 16:00] VITALS: BP 121/57; PULSE 83; RESP 16; TEMP 36.4; O2SAT 96
--- NOTE | 2023-06-13 16:19 | PCM.HP.STD ---
HPI - General General Date of Admission: 06/13/23 Date of Service: 06/13/23 Chief Complaint: Here for rehabiliation. HPI Narrative OBED WRIGHT, is a 88 Female who presents with followin06/10/2023 Admit to [facility]. 06/10/2023 Dr. Gay performed left direct anterior total hip arthroplasty. 06/11/2023 Pain controlled, left thigh pain, Hemoglobin decreased, asymptomatic. Lives alone, cognitive impairment, [facility] on discharge recommended. Tylenol, Tramadol for pain, avoid oxycodone secondary to cognition. Avoid NSAIDs due to chronic kidney disease. Aspirin 81mg twice daily thru 07/08/2023 for DVT prophylaxis. PT/OT for SNF. Hemoglobin 12.2 to 8.6, start iron, Folic acid. Pre-CERT for SNF. 06/13/2023 Admit to TCU with debility, here for rehabilitation, strengthening, prior to disposition determination. [facility] Medical History (Updated 06/13/23 @ 16:[address] Dandre Hernández MD) Abdominal pain Acid reflux Arthritis Back problem Constipation Depression HTN (hypertension) Hx of breast cancer Home Medications cholecalciferol (vitamin D3) 25 mcg (1,000 unit) tablet 1,000 unit PO DAILY supplement 01/16/16 [History Last Taken 06/13/23] cyanocobalamin (vitamin B-12) 500 mcg tablet 500 mcg PO DAILY@0800 supplement 06/06/19 [History Last Taken Unknown] amlodipine 5 mg tablet 5 mg PO DAILY BP 12/06/20 [History Last Taken Unknown] sertraline 100 mg tablet 100 mg PO DAILY mood 12/06/20 [History Last Taken Unknown] valsartan 80 mg tablet 80 mg PO DAILY BP 12/06/20 [History Last Taken Unknown] acetaminophen 500 mg capsule 1,000 mg PO Q8H PRN PRN pain (scale score 1-3) 06/13/23 [History Last Taken Unknown] aspirin 81 mg chewable tablet (Aspirin Childrens) 81 mg PO BID blood thinner 06/13/23 [History Last Taken 06/13/23] famotidine 20 mg tablet (Acid Controller) 20 mg PO DAILY acid reflux 06/13/23 [History Last Taken Unknown] ferrous sulfate 325 mg (65 mg iron) tablet,delayed release 325 mg PO BID supplement 06/13/23 [History Last Taken Unknown] folic acid 1 mg tablet 1 mg PO DAILY supplement 06/13/23 [History Last Taken Unknown] tramadol 50 mg tablet 50 - 100 mg PO Q6H pain 06/13/23 [History Last Taken Unknown] Allergy/AdvReac Type Severity Reaction Status Date / Time cyclobenzaprine Allergy Unknown Verified 04/29/21 12:15 Penicillins Allergy Rash Verified 04/29/21 12:15 acetaminophen [From Tylenol] AdvReac STATES Verified 04/29/21 12:15 FILLS NUMB ALL OVER diphenhydramine citrate AdvReac STATES Verified 04/29/21 12:15 [From Advil PM] FEELS NUMB ALL OVER ibuprofen [From Advil PM] AdvReac STATES Verified 04/29/21 12:15 FEELS NUMB ALL OVER Family History Sister Lymphoma Hypertension Diabetes Cancer Brother Diabetes Alzheimer disease Mother CVA (cerebral vascular accident) Surgical History (Updated 06/13/23 @ 16:[address] Dandre Hernández MD) History of total left hip arthroplasty Hx of appendectomy Hx of colonoscopy Hx of lumpectomy Social History household members: none housing: house number of children: 3 pets and animals: No Smoking Status: Never smoker second hand exposure: No alcohol intake: never substance use type: does not use caffeine: Yes what type of physical activity do you participate in: none frequency: does not exercise seatbelt use: always do you feel safe at home: Yes ROS Constitutional Constitutional: Denies chills, fever(s) or weight gain ENT HEENT: Denies headache(s), nasal congestion or nasal discharge Cardiovascular Cardiovascular: Denies chest pain or palpitations Respiratory/Chest Respiratory/Chest: Denies cough, excessive phlegm production or shortness of breath with exertion Gastrointestinal Gastrointestinal: Denies abdominal pain, nausea or vomiting Genitourinary Genitourinary: Denies dysuria Musculoskeletal Musculoskeletal: Denies joint pain or joint swelling Integumentary Integumentary: Denies rash or wounds Neurologic Neurologic: Denies focal weakness, numbness or tingling Psychiatric Psychiatric: Denies anxiety, auditory hallucinations, depression, homicidal ideation or suicidal ideation Vital Signs Vital Signs Vital Signs: 12/01/23 14:23 06/13/23 14:23 Temperature 97.5 F L Temperature Source Temporal Pulse Rate 83 83 Pulse Rhythm Regular Pulse Strength Normal (2+) Respiratory Rate 16 16 Respiratory Effort Normal Respiratory Depth Normal Respiratory Pattern Normal Blood Pressure 121/57 H Blood Pressure Mean 78 Blood Pressure Source Monitor Blood Pressure Position Sitting Blood Pressure Location Right Arm Pulse Ox 96 96 Oxygen Delivery Method Room Air Room Air Weight Weight: 57.663 kg Body Mass Index (BMI) 19.9 Physical Exam Const alert General Appearance: cooperative HEENT normocephalic Eyes PERRL and EOMs intact bilaterally Neck supple, no JVD and no carotid bruits Resp normal respiratory effort, normal air movement and clear to auscultation bilaterally Cardio regular rate and regular rhythm GI normal to inspection, nondistended, normoactive bowel sounds, non-tender and non-distended Extremity normal capillary refill General Extremity: Negative for edema Skin no rashes or lesions noted General Skin Exam: no breakdown Psych affect normal Appearance: appropriate Assessment & Plan Assessment/Plan (1) Debility: (2) Status post total hip replacement, left: (3) HTN (hypertension): (4) Depression: (5) Hx of breast cancer: PLAN: Plan 88 year old female with below past medical history hospitalized for left total hip replacement 06/10/[address] Gay, admitted to TCU with debility, here for rehabilitation, strengthening, prior to disposition determination. Debility - PT/OT. Pain - Tylenol 1000mg q8, Tramadol 50mg q6 prn pain (1-10). Bowel - Miralax 17gm daily, senna/colace 1 tablet bid, Magnesium citrate 300ml po daily prn. Adult immunization - Administer pneumonia vaccine, covid vaccine, flu vaccine as appropriate. DVT prophylaxis - Aspirin 81mg bid thru 07/13/2023. Vitamin D deficiency - D3 25mcg daily. GERD - Famotidine 20mg daily. Iron deficiency anemia - Ferrous sulfate 325mg bid, Folic acid 1mg daily. Hypertension - Losartan 25mg daily. Depression - Sertraline 100mg daily, stable chronic termite control servicer use, GDR not recommended.
[2023-06-13] MEDS: Aspirin 81 MG TAB.CHEW PO (17:13)
[2023-06-13] MEDS: Ferrous Sulfate 325 MG Tablet PO (17:13)
[2023-06-13] MEDS: Acetaminophen 500 MG Tablet 1000 MG PO (20:52)
[2023-06-13] MEDS: Senna/Docusate Sodium 1 Tablet PO (20:52)
[2023-06-13] MEDS: Ensure Plus High Protein 120 ML LIQUID PO (20:53)
[2023-06-14] MEDS: Acetaminophen 500 MG Tablet 1000 MG PO ×3 (06:08→20:53)
[2023-06-14] MEDS: Ensure Plus High Protein 120 ML LIQUID PO ×4 (06:09→20:53)
[2023-06-14 07:55] LABS: Absolute Neutrophil Count 3.4 X10^3/uL (2.0-7.7); Basophil# 0.01 X10^3/uL; Basophil% 0.2 % (0-1); Eosinophil# 0.16 X10^3/uL; Eosinophils% 2.8 % (0-5); Hematocrit 25.7 % (37-47); Hemoglobin 8.1 g/dL (12.0-15.0); Lymphocyte % 22.8 % (19-41); Mean Corp Hgb Conc 31.5 g/dL (32-36); Mean Corpuscular Hgb 31.6 pg (27.0-32.0); Mean Corpuscular Volume 100.4 fL (81-99); Mean Platelet Vol. 9.6 fl (6.2-12.0); Monocyte# 0.87 X10^3/uL; Monocyte% 15.2 % (0-10); NRBC Flagged by Analyzer 0 % (0-5); Neutrophil # 3.36 X10^3/uL (2.7-7.7); Neutrophil % 58.8 % (47-70); Platelet Count 195 K/mm3 (150-450); RBC Distribution Width CV 13.2 % (11.6-14.6); RBC Distribution Width SD 49.1 fl (35.1-43.9); Red Blood Count 2.56 M/mm3 (4.2-5.4); White Blood Count 5.7 K/mm3 (4.4-11.0)
[2023-06-14 08:26] LABS: Anion Gap 4 (5-15); BUN 29 mg/dL (7-18); BUN/Creat Ratio 27.1 RATIO (10-20); Calcium,Total 8.8 mg/dL (8.5-10.1); Chloride 107 mmol/L (98-107); Creatinine, Serum 1.07 mg/dL (0.55-1.02); EST Glomerular Filtration Rate 52 mL/min (>60); Est Glom Filt Rate - Afr Amer 62 mL/min (>60); Estimated Creatinine Clearance 33.72 ml/min; Glucose 99 mg/dL (74-106); Potassium 3.8 mmol/L (3.5-5.1); Sodium Level 141 mmol/L (136-145)
[2023-06-14] MEDS: Senna/Docusate Sodium 1 Tablet PO ×2 (10:36→20:53)
[2023-06-14] MEDS: Cholecalciferol (VIT D3) 25 MCG TABLET (1,000 UNITS) PO (10:36)
[2023-06-14] MEDS: Folic Acid 1 MG Tablet PO (10:36)
[2023-06-14] MEDS: Aspirin 81 MG TAB.CHEW PO ×2 (10:37→17:38)
[2023-06-14] MEDS: Losartan Potassium 25 MG Tablet PO (10:37)
[2023-06-14] MEDS: Sertraline 100 MG Tablet PO (10:37)
[2023-06-14] MEDS: Famotidine 20 MG Tablet PO (10:38)
[2023-06-14] MEDS: Polyethylene Glycol 3350 17 GM PACKET PO (10:38)
[2023-06-14 10:43] VITALS: BP 108/70; PULSE 78; RESP 18; O2SAT 98
[2023-06-14] MEDS: Ferrous Sulfate 325 MG Tablet PO ×2 (11:46→17:39)
[2023-06-14] MEDS: Tuberculin,Purif.prot.deriv. 50 TU/ML Vial 0.1 ML ID (11:47)
--- NOTE | 2023-06-14 11:50 | NURSING ---
Pt complains of chest pain. When asked to describe pain, pt states It feels like my pills are stuck in my throat. Mouth clear, no respiratory distress noted. Pt ate and swallowed applesauce with no difficulty. No further complaints.
--- NOTE | 2023-06-14 13:58 | NURSING ---
Walked into patient's room to give scheduled Tylenol, visitors present at bedside. Visitors state that pt reports refusing lunch due to chest pain. When offered lunch, pt had refused and told staff I'm just not hungry. Spoke with pt, she denies feelings of pressure\pain to chest, states it feels like the pills got stuck... Pt then complains of nausea earlier this morning. No nausea complaints reported to staff by pt this morning. Pt denies current pain/nausea. Per request, offered antonieta john and crackers. Visitors remain at bedside. no further comments\concerns noted.
[2023-06-14 14:10] VITALS: BP 108/61; PULSE 86; RESP 16; TEMP 36.3; O2SAT 98
[2023-06-14 21:00] VITALS: PULSE 82; RESP 16; O2SAT 93
[2023-06-15] MEDS: traMADol 50 MG Tablet PO (04:34)
[2023-06-15] MEDS: Acetaminophen 500 MG Tablet 1000 MG PO ×3 (06:08→22:30)
[2023-06-15] MEDS: Ensure Plus High Protein 120 ML LIQUID PO ×4 (06:08→22:30)
[2023-06-15] MEDS: Polyethylene Glycol 3350 17 GM PACKET PO (09:27)
[2023-06-15] MEDS: Folic Acid 1 MG Tablet PO (09:27)
[2023-06-15] MEDS: Aspirin 81 MG TAB.CHEW PO ×2 (09:27→17:51)
[2023-06-15] MEDS: Famotidine 20 MG Tablet PO (09:27)
[2023-06-15] MEDS: Losartan Potassium 25 MG Tablet PO (09:27)
[2023-06-15] MEDS: Cholecalciferol (VIT D3) 25 MCG TABLET (1,000 UNITS) PO (09:27)
[2023-06-15] MEDS: Senna/Docusate Sodium 1 Tablet PO ×2 (09:27→22:30)
[2023-06-15] MEDS: Sertraline 100 MG Tablet PO (09:28)
[2023-06-15 09:32] VITALS: BP 136/76; PULSE 78; RESP 18; O2SAT 98
[2023-06-15] MEDS: Ferrous Sulfate 325 MG Tablet PO ×2 (11:58→17:51)
[2023-06-15 14:21] VITALS: BP 116/55; PULSE 72; RESP 18; TEMP 36.1; O2SAT 99
[2023-06-16] MEDS: traMADol 50 MG Tablet PO (03:52)
[2023-06-16 05:55] LABS: Hematocrit 26.3 % (37-47)
[2023-06-16] MEDS: Acetaminophen 500 MG Tablet 1000 MG PO ×3 (06:15→22:06)
[2023-06-16] MEDS: Ensure Plus High Protein 120 ML LIQUID PO ×4 (06:15→22:06)
[2023-06-16] MEDS: Aspirin 81 MG TAB.CHEW PO ×2 (07:59→16:33)
[2023-06-16] MEDS: Folic Acid 1 MG Tablet PO (07:59)
[2023-06-16] MEDS: Senna/Docusate Sodium 1 Tablet PO (08:00)
[2023-06-16] MEDS: Sertraline 100 MG Tablet PO (08:00)
[2023-06-16] MEDS: Cholecalciferol (VIT D3) 25 MCG TABLET (1,000 UNITS) PO (08:00)
[2023-06-16] MEDS: Losartan Potassium 25 MG Tablet PO (08:00)
[2023-06-16] MEDS: Famotidine 20 MG Tablet PO (08:00)
[2023-06-16 08:06] VITALS: BP 144/73; PULSE 78
--- NOTE | 2023-06-16 09:02 | NURSING ---
Subassembly Supervisor Note; Activity Asset: Jose Hernandez is independent in her choice of daily activities. She enjoys reading and talking w/others. Family visits with her daily and will continue to bring in books from her home if needed. Vernell watches tv, and welcomes visit from the water plant pump operator and therapy dog when available. Staff will continue to offer her in room and group [id number] and respect her right to say no.
--- NOTE | 2023-06-16 09:13 | NURSING ---
Offered covid vaccine, VIS provided. Patient refuses at this time.
[2023-06-16 10:00] VITALS: PULSE 83; RESP 16; O2SAT 97
[2023-06-16] MEDS: Ferrous Sulfate 325 MG Tablet PO ×2 (11:17→16:33)
[2023-06-16 13:47] VITALS: BP 132/70; PULSE 78; RESP 18; TEMP 36.3; O2SAT 98
--- NOTE | 2023-06-16 14:30 | PCM.PN.DRR ---
Documented by User: Korey Thibodeaux 06/16/23 14:42 TCU RX Drug Regimen Review Subjective/Objective Subjective/Objective: Subjective: 88 year old female with below past medical history hospitalized for left total hip replacement 06/10/[address] Gay, admitted to TCU with debility, here for rehabilitation, strengthening, prior to disposition determination. Objective: Allergies cyclobenzaprine Allergy (Verified 04/29/21 12:15) Unknown Penicillins Allergy (Verified 04/29/21 12:15) Rash acetaminophen [From Tylenol] Adverse Reaction (Verified 04/29/21 12:15) STATES FILLS NUMB ALL OVER diphenhydramine citrate [From Advil PM] Adverse Reaction (Verified 04/29/21 12:15) STATES FEELS NUMB ALL OVER ibuprofen [From Advil PM] Adverse Reaction (Verified 04/29/21 12:15) STATES FEELS NUMB ALL OVER Current Medications Generic Name Dose Route Start Last Admin Trade Name Freq PRN Reason Stop Dose Admin Acetaminophen 1,000 mg 06/13/23 22:00 06/16/23 06:15 Acetaminophen 500 Mg Tablet PO 1,000 mg Q8 SUNNY Administration Aspirin 81 mg 06/13/23 17:00 06/16/23 07:59 Aspirin 81 Mg Tab.Chew PO 07/13/23 17:01 81 mg BIDCM SUNNY Administration Cholecalciferol 25 mcg 06/14/23 08:00 06/16/23 08:00 Cholecalciferol (Vit D3) 25 Mcg Tablet (1,000 Units) PO 25 mcg DAILYCM SUNNY Administration Famotidine 20 mg 06/14/23 10:00 06/16/23 08:00 Famotidine 20 Mg Tablet PO 20 mg DAILY SUNNY Administration Ferrous Sulfate 325 mg 06/13/23 17:00 06/16/23 11:17 Ferrous Sulfate 325 Mg Tablet PO 325 mg BID@1200,1700 SUNNY Administration Folic Acid 1 mg 06/14/23 08:00 06/16/23 07:59 Folic Acid 1 Mg Tablet PO 1 mg DAILYCM SUNNY Administration Losartan Potassium 25 mg 06/14/23 10:00 06/16/23 08:00 Losartan Potassium 25 Mg Tablet PO 25 mg DAILY SUNNY Administration Protocol Magnesium Citrate 300 ml 06/13/23 16:31 Magnesium Citrate 300 Ml PO DAILY PRN Constipation Nutritional Formula (Lactose Free) 120 ml 06/13/23 22:00 06/16/23 11:17 Ensure Plus High Protein 120 Ml Liquid PO 120 ml 4X/DAY SUNNY Administration Polyethylene Glycol 17 gm 06/14/23 10:00 06/16/23 08:01 Polyethylene Glycol 3350 17 Gm Packet PO Not Given DAILY SUNNY Senna/Docusate Sodium 1 tablet 06/13/23 22:00 06/16/23 08:00 Senna/Docusate Sodium 1 Tablet PO 1 tablet BID SUNNY Administration Sertraline HCl 100 mg 06/14/23 10:00 06/16/23 08:00 Sertraline 100 Mg Tablet PO 100 mg DAILY SUNNY Administration Tramadol HCl 50 mg 06/13/23 15:27 06/16/23 03:52 Tramadol 50 Mg Tablet PO 50 mg Q6H PRN Administration Pain Score 1-10 Tuberculin PPD 0.1 ml 06/21/23 10:00 Tuberculin,Purif.Prot.Deriv. 50 Tu/Ml Vial ID 06/21/23 10:01 X1 ONE Problem List (Updated 06/13/23 @ 16:[address] Dandre Hernández MD) Status post total hip replacement, left (Acute) Debility (Acute) HTN (hypertension) (Chronic) Depression (Acute) Hx of breast cancer (Acute) Vital Signs Temp Pulse Resp BP Pulse Ox O2 Del Method 97.4 F L 78 18 132/70 H 98 Room Air 06/16/23 13:47 06/16/23 13:47 06/16/23 13:47 06/16/23 13:47 06/16/23 13:47 06/16/23 13:47 Oxygen Delivery Method Room Air Weight: 57.663 kg Body Mass Index (BMI) 19.9 Sodium 141 mmol/L (136-145) 06/14/23 07:40 Potassium 3.8 mmol/L (3.5-5.1) 06/14/23 07:40 Chloride 107 mmol/L (98-107) 06/14/23 07:40 Carbon Dioxide 30.0 mmol/L (21.0-32.0) 06/14/23 07:40 Anion Gap 4 (5-15) L 06/14/23 07:40 BUN 29 mg/dL (7-18) H 06/14/23 07:40 Creatinine 1.07 mg/dL (0.55-1.02) H 06/14/23 07:40 Est GFR (MDRD) Af Amer 62 mL/min (>60) 06/14/23 07:40 Est GFR (MDRD) Non-Af 52 mL/min (>60) L 06/14/23 07:40 BUN/Creatinine Ratio 27.1 RATIO (10-20) H 06/14/23 07:40 Glucose 99 mg/dL (74-106) 06/14/23 07:40 Assessment/Plan: 1. Pain: acetaminophen 1000 mg PO Q8H, tramadol 50 mg PO Q6H PRN pain (1-10). The patient has used 2 PRN doses of tramadol so far this admission. Please continue to monitor pain levels, PRN medication usage, LFTs (AST/ALT = 17/16 U/L on 12/10/22), for respiratory depression, dizziness, constipation, syncope/ataxia/falls. 2. Bowel: polyethylene glycol 17 grams PO daily, senna/docusate 1 tablet PO BID, magnesium citrate 300 mL PO daily PRN constipation. The patient has not required any PRN doses of magnesium citrate yet this admission. Please continue to monitor for bowel movements, PRN medication usage, constipation and diarrhea. 3. DVT prophylaxis: aspirin 81 mg PO BID through 07/13/23. Please continue to monitor for s/s of a DVT such as lower extremity erythema/swelling/pain, for s/s of bleeding/excessive bruising, and for GI distress with aspirin administration. If GI distress occurs with aspirin administration please consider administering aspirin with food/meal. 4. GERD: famotidine 20 mg PO daily. Please continue to monitor for s/s of GERD, for delirium, platelet count (Plt = 195 K/mm3 on 06/14/23), and renal function (serum creatinine = 1.07 mg/dL with creatinine clearance ~ 34 mL/min on 06/14/23). 5. Hypertension: losartan 25 mg PO daily. Please continue to monitor blood pressures (recent range = 108-167/55-77 mmHg), potassium levels (K = 3.8 mmol/L on 06/14/23), sodium levels (Na = 141 mmol/L on 06/14/23), and renal function (serum creatinine = 1.07 mg/dL with creatinine clearance ~ 34 mL/min on 06/14/23). 6. Iron deficiency anemia: ferrous sulfate 325 mg PO BID, folic acid 1 mg PO daily. Please continue to monitor for s/s of anemia, iron levels (no recent iron levels documented), and hemoglobin levels (Hgb = 8.0 g/dL on 06/16/23), as well as for constipation. Please consider ordering iron levels to assess repletion status if clinically indicated. 7. Vitamin D deficiency: cholecalciferol 25 mcg PO daily with a meal. Please continue to monitor for s/s of vitamin D deficiency, and vitamin D levels (vitamin D = 38.2 ng/mL on 04/22/18). Please consider ordering a vitamin D level to assess status if clinically indicated. 8. Nutrition: ensure plus high protein 120 mL PO 4x daily. Please continue to monitor nutritional status. Assessment/Plan for indications treated with psychotropic medications: 1. Depression: sertraline 100 mg PO daily. Please see provider note regarding stable chronic long-term use GDR not recommended. Please continue to monitor depression levels, for SI, sodium levels (Na = 141 mmol/L on 06/14/23), for s/s of serotonin syndrome, for s/s of bleeding, and fro diarrhea/nausea. Medical chart and medication regimen reviewed. The following medication irregularities or issues were identified: 1. Iron deficiency anemia: ferrous sulfate 325 mg PO BID, folic acid 1 mg PO daily. Please continue to monitor for s/s of anemia, iron levels (no recent iron levels documented), and hemoglobin levels (Hgb = 8.0 g/dL on 06/16/23), as well as for constipation. Please consider ordering iron levels to assess repletion status if clinically indicated. 2. Vitamin D deficiency: cholecalciferol 25 mcg PO daily with a meal. Please continue to monitor for s/s of vitamin D deficiency, and vitamin D levels (vitamin D = 38.2 ng/mL on 04/22/18). Please consider ordering a vitamin D level to assess status if clinically indicated. Date Date of Note:: 06/16/23 Documented by User: Dr. Dandre Hernández MD 06/16/23 17:23 TCU RX Drug Regimen Review Provider Comments Provider responsibility Provider Comments to Recommendations by Pharmacy: Agree
[2023-06-17] MEDS: Ensure Plus High Protein 120 ML LIQUID PO ×3 (05:55→21:42)
[2023-06-17] MEDS: Acetaminophen 500 MG Tablet 1000 MG PO ×3 (05:55→21:43)
[2023-06-17] MEDS: Aspirin 81 MG TAB.CHEW PO ×2 (09:29→16:49)
[2023-06-17] MEDS: Cholecalciferol (VIT D3) 25 MCG TABLET (1,000 UNITS) PO (09:30)
[2023-06-17] MEDS: Polyethylene Glycol 3350 17 GM PACKET PO (09:30)
[2023-06-17] MEDS: Losartan Potassium 25 MG Tablet PO (09:30)
[2023-06-17] MEDS: Folic Acid 1 MG Tablet PO (09:30)
[2023-06-17] MEDS: Famotidine 20 MG Tablet PO (09:31)
[2023-06-17] MEDS: Sertraline 100 MG Tablet PO (09:31)
[2023-06-17] MEDS: Senna/Docusate Sodium 1 Tablet PO (09:31)
[2023-06-17 09:36] VITALS: BP 120/65; PULSE 73
[2023-06-17 10:00] VITALS: PULSE 77; RESP 16; O2SAT 96
[2023-06-17] MEDS: Ferrous Sulfate 325 MG Tablet PO ×2 (11:15→16:49)
[2023-06-17 15:01] VITALS: BMI 20.2
[2023-06-17 16:00] VITALS: BP 139/73; PULSE 80; RESP 14; TEMP 36.4; O2SAT 99
--- NOTE | 2023-06-17 18:36 | CASEMGMT ---
Social Work Met with patient to complete initial assessment. Introduced self and role. Verified contacts. Confirmed code status as full code. Educated to Medicare benefit and copay coverage. Pt's goal is to return home alone at [facility]. SW will continue to follow for DC planning. PEDRO OrtizW
[2023-06-18] MEDS: Acetaminophen 500 MG Tablet 1000 MG PO ×3 (05:39→20:52)
[2023-06-18 06:05] LABS: Hemoglobin 8.2 g/dL (12.0-15.0)
[2023-06-18] MEDS: Aspirin 81 MG TAB.CHEW PO ×2 (08:37→16:51)
[2023-06-18] MEDS: Folic Acid 1 MG Tablet PO (08:37)
[2023-06-18] MEDS: Famotidine 20 MG Tablet PO (08:37)
[2023-06-18] MEDS: Sertraline 100 MG Tablet PO (08:38)
[2023-06-18] MEDS: Losartan Potassium 25 MG Tablet PO (08:38)
[2023-06-18] MEDS: Senna/Docusate Sodium 1 Tablet PO ×2 (08:38→20:52)
[2023-06-18] MEDS: Cholecalciferol (VIT D3) 25 MCG TABLET (1,000 UNITS) PO (08:39)
[2023-06-18] MEDS: Ferrous Sulfate 325 MG Tablet PO ×2 (12:35→16:52)
[2023-06-18 16:00] VITALS: BP 116/54; PULSE 82; RESP 14; TEMP 36.7; O2SAT 96
[2023-06-18] MEDS: Ensure Plus High Protein 120 ML LIQUID PO ×2 (16:50→20:52)
[2023-06-18 21:18] VITALS: O2SAT 95
[2023-06-19] MEDS: Acetaminophen 500 MG Tablet 1000 MG PO ×3 (04:58→21:25)
[2023-06-19] MEDS: Ensure Plus High Protein 120 ML LIQUID PO ×4 (05:01→21:24)
[2023-06-19] MEDS: Aspirin 81 MG TAB.CHEW PO ×2 (09:57→18:54)
[2023-06-19] MEDS: Cholecalciferol (VIT D3) 25 MCG TABLET (1,000 UNITS) PO (09:58)
[2023-06-19] MEDS: Famotidine 20 MG Tablet PO (09:58)
[2023-06-19] MEDS: Sertraline 100 MG Tablet PO (09:58)
[2023-06-19] MEDS: Losartan Potassium 25 MG Tablet PO (09:58)
[2023-06-19] MEDS: Senna/Docusate Sodium 1 Tablet PO ×2 (09:58→21:25)
[2023-06-19] MEDS: Folic Acid 1 MG Tablet PO (09:58)
[2023-06-19 10:00] VITALS: PULSE 76; RESP 16; O2SAT 98
[2023-06-19] MEDS: Ferrous Sulfate 325 MG Tablet PO ×2 (13:23→18:54)
--- NOTE | 2023-06-19 13:49 | MDS.RN ---
MDS pain interview complete.
[2023-06-19 15:31] VITALS: BP 142/73; PULSE 89; RESP 18; TEMP 36.2; O2SAT 97
--- NOTE | 2023-06-19 16:24 | CASEMGMT ---
SOCIAL WORK: BIMS () and PHQ-2 () completed for MDS assessment. Moon ROSADO
[2023-06-20] MEDS: Acetaminophen 500 MG Tablet 1000 MG PO ×3 (05:23→21:22)
[2023-06-20] MEDS: Ensure Plus High Protein 120 ML LIQUID PO ×4 (05:23→21:22)
[2023-06-20 07:04] LABS: Hematocrit 27.3 % (37-47); Hemoglobin 8.5 g/dL (12.0-15.0)
[2023-06-20 09:43] VITALS: BP 132/64; PULSE 72; RESP 18; O2SAT 98
[2023-06-20] MEDS: Sertraline 100 MG Tablet PO (09:43)
[2023-06-20] MEDS: Cholecalciferol (VIT D3) 25 MCG TABLET (1,000 UNITS) PO (09:43)
[2023-06-20] MEDS: Famotidine 20 MG Tablet PO (09:43)
[2023-06-20] MEDS: Aspirin 81 MG TAB.CHEW PO ×2 (09:44→16:36)
[2023-06-20] MEDS: Senna/Docusate Sodium 1 Tablet PO ×2 (09:44→21:22)
[2023-06-20] MEDS: Folic Acid 1 MG Tablet PO (09:44)
[2023-06-20] MEDS: Losartan Potassium 25 MG Tablet PO (09:44)
[2023-06-20] MEDS: Ferrous Sulfate 325 MG Tablet PO ×2 (11:56→16:36)
[2023-06-20 13:43] VITALS: BP 142/68; PULSE 84; RESP 16; TEMP 36.8; O2SAT 97
--- NOTE | 2023-06-20 14:39 | CASEMGMT ---
Social Work IDT met with patient, two dtrs and gddtr for care plan meeting. Discussed patient's progress in PT/OT/ST/SN. Educated to Medicare benefit and copay coverage. Pts goal is to return home alone at [facility], and is anxious to return home within the next couple days. Pt is still needing some slight assistance and is not independent at this time. ST is also working on functional cognitive tasks with pt. IDT is recommending continued time with therapy prior to home alone. Offered EDC for 06/28 or 06/29. Family is in agreement and would like pt to improve further. Pt did agree to timeframe as well. SW will continue to follow for DC planning. Diana Arango, CSO TALENT SPECIALIST
[2023-06-21] MEDS: Acetaminophen 500 MG Tablet 1000 MG PO ×3 (05:33→22:17)
[2023-06-21] MEDS: Ensure Plus High Protein 120 ML LIQUID PO ×4 (05:33→22:16)
[2023-06-21 08:28] LABS: Absolute Lymphocyte Count 1.35 X10^3/uL (0.83-4.51); Absolute Neutrophil Count 3.8 X10^3/uL (2.0-7.7); Basophil# 0.03 X10^3/uL; Basophil% 0.5 % (0-1); Eosinophil# 0.14 X10^3/uL; Eosinophils% 2.3 % (0-5); Hemoglobin 8.9 g/dL (12.0-15.0); Lymphocyte # 1.35 X10^3/ul (0.83-4.51); Lymphocyte % 22.2 % (19-41); Mean Corp Hgb Conc 30.7 g/dL (32-36); Mean Corpuscular Hgb 30.8 pg (27.0-32.0); Mean Corpuscular Volume 100.3 fL (81-99); Mean Platelet Vol. 8.7 fl (6.2-12.0); Monocyte# 0.73 X10^3/uL; NRBC Flagged by Analyzer 0 % (0-5); Neutrophil # 3.78 X10^3/uL (2.7-7.7); Neutrophil % 62.3 % (47-70); Platelet Count 326 K/mm3 (150-450); RBC Distribution Width CV 14.6 % (11.6-14.6); RBC Distribution Width SD 52.3 fl (35.1-43.9); Red Blood Count 2.89 M/mm3 (4.2-5.4); White Blood Count 6.1 K/mm3 (4.4-11.0)
[2023-06-21 08:45] LABS: Anion Gap 3 (5-15); BUN 33 mg/dL (7-18); BUN/Creat Ratio 27.7 RATIO (10-20); Chloride 108 mmol/L (98-107); Creatinine, Serum 1.19 mg/dL (0.55-1.02); EST Glomerular Filtration Rate 46 mL/min (>60); Est Glom Filt Rate - Afr Amer 55 mL/min (>60); Estimated Creatinine Clearance 30.69 ml/min; Glucose 114 mg/dL (74-106); Potassium 4.1 mmol/L (3.5-5.1); Sodium Level 141 mmol/L (136-145)
[2023-06-21] MEDS: Folic Acid 1 MG Tablet PO (09:53)
[2023-06-21] MEDS: Aspirin 81 MG TAB.CHEW PO ×2 (09:53→16:27)
[2023-06-21] MEDS: Cholecalciferol (VIT D3) 25 MCG TABLET (1,000 UNITS) PO (09:53)
[2023-06-21] MEDS: Losartan Potassium 25 MG Tablet PO (09:54)
[2023-06-21] MEDS: Senna/Docusate Sodium 1 Tablet PO (09:54)
[2023-06-21] MEDS: Sertraline 100 MG Tablet PO (09:55)
[2023-06-21] MEDS: Famotidine 20 MG Tablet PO (09:55)
[2023-06-21 09:58] VITALS: BP 144/71; PULSE 80
[2023-06-21] MEDS: Tuberculin,Purif.prot.deriv. 50 TU/ML Vial 0.1 ML ID (11:20)
[2023-06-21] MEDS: Ferrous Sulfate 325 MG Tablet PO ×2 (11:21→16:27)
[2023-06-21 16:00] VITALS: BP 157/77; PULSE 78; RESP 18; TEMP 36.7; O2SAT 95
[2023-06-22 04:54] LABS: Hematocrit 27.4 % (37-47); Hemoglobin 8.2 g/dL (12.0-15.0)
[2023-06-22] MEDS: Acetaminophen 500 MG Tablet 1000 MG PO ×3 (06:03→22:15)
[2023-06-22] MEDS: Ensure Plus High Protein 120 ML LIQUID PO ×4 (06:04→22:15)
[2023-06-22] MEDS: Cholecalciferol (VIT D3) 25 MCG TABLET (1,000 UNITS) PO (08:14)
[2023-06-22] MEDS: Aspirin 81 MG TAB.CHEW PO ×2 (08:14→17:15)
[2023-06-22] MEDS: Sertraline 100 MG Tablet PO (08:14)
[2023-06-22] MEDS: Losartan Potassium 25 MG Tablet PO (08:14)
[2023-06-22] MEDS: Famotidine 20 MG Tablet PO (08:14)
[2023-06-22] MEDS: Folic Acid 1 MG Tablet PO (08:15)
[2023-06-22] MEDS: Senna/Docusate Sodium 1 Tablet PO ×2 (08:16→22:16)
[2023-06-22 08:27] VITALS: BP 127/68; PULSE 78; RESP 18; O2SAT 99
[2023-06-22] MEDS: Ferrous Sulfate 325 MG Tablet PO ×2 (12:41→17:15)
[2023-06-22 16:00] VITALS: TEMP 36.6
[2023-06-23] MEDS: Ensure Plus High Protein 120 ML LIQUID PO ×4 (05:31→20:31)
[2023-06-23] MEDS: Acetaminophen 500 MG Tablet 1000 MG PO ×3 (05:31→20:31)
[2023-06-23 06:16] LABS: Hematocrit 27.7 % (37-47); Hemoglobin 8.4 g/dL (12.0-15.0)
[2023-06-23] MEDS: Aspirin 81 MG TAB.CHEW PO ×2 (09:40→16:32)
[2023-06-23] MEDS: Folic Acid 1 MG Tablet PO (09:41)
[2023-06-23] MEDS: Losartan Potassium 25 MG Tablet PO (09:41)
[2023-06-23] MEDS: Cholecalciferol (VIT D3) 25 MCG TABLET (1,000 UNITS) PO (09:41)
[2023-06-23] MEDS: Sertraline 100 MG Tablet PO (09:41)
[2023-06-23] MEDS: Senna/Docusate Sodium 1 Tablet PO ×2 (09:41→20:31)
[2023-06-23] MEDS: Famotidine 20 MG Tablet PO (09:41)
--- NOTE | 2023-06-23 10:19 | NURSING ---
Dr Gay's office called, stated they are faxing over orders for xrays, suture removal and requesting picture of surgical site to be uploaded in patients chart.
[2023-06-23] MEDS: Ferrous Sulfate 325 MG Tablet PO ×2 (12:25→16:33)
[2023-06-23 13:23] VITALS: BP 129/64; PULSE 82; RESP 20; TEMP 36.4; O2SAT 98
--- NOTE | 2023-06-23 13:45 | NURSING ---
Seven sutures removed from left hip at this time per verbal order from Dr. Gay's office. Patient tolerated well. Pinkness noted to insertion sites of sutures but no drainage. No bleeding after removal and incision is well approximated. Steri strip placed over incision.
--- NOTE | 2023-06-23 17:39 | NURSING ---
Addendum entered by Angelica Melendez 06/24/23 13:48: Followed up with Dr Gay's office, VO received from [facility] for left hip/pelvis xray. Order also received via fax. Original Note: No orders from Dr. Gay's office were sent. Office called this afternoon and message left along with fax number.
[2023-06-24] MEDS: Ensure Plus High Protein 120 ML LIQUID PO ×4 (05:39→20:07)
[2023-06-24] MEDS: Acetaminophen 500 MG Tablet 1000 MG PO ×3 (05:39→20:07)
[2023-06-24 06:14] VITALS: O2SAT 96
--- NOTE | 2023-06-24 07:05 | MDS.RN ---
Information for the mds was obtained from review of the clinical record, interview of resident, staff, and direct observation of resident's care.
[2023-06-24 09:06] VITALS: BMI 19.8
[2023-06-24] MEDS: Cholecalciferol (VIT D3) 25 MCG TABLET (1,000 UNITS) PO (09:50)
[2023-06-24] MEDS: Aspirin 81 MG TAB.CHEW PO ×2 (09:51→17:32)
[2023-06-24] MEDS: Folic Acid 1 MG Tablet PO (09:51)
[2023-06-24] MEDS: Sertraline 100 MG Tablet PO (09:51)
[2023-06-24] MEDS: Losartan Potassium 25 MG Tablet PO (09:51)
[2023-06-24] MEDS: Senna/Docusate Sodium 1 Tablet PO ×2 (09:51→20:07)
[2023-06-24] MEDS: Famotidine 20 MG Tablet PO (09:51)
--- NOTE | 2023-06-24 11:00 | NURSING ---
Alarm removed as patient is now approved to be up ad [facility] per therapy.
[2023-06-24] MEDS: Ferrous Sulfate 325 MG Tablet PO ×2 (11:36→17:32)
--- NOTE | 2023-06-24 14:00 | RAD_ITS ---
STUDY: X-RAY - PELVIS AND LEFT HIP REASON FOR EXAM: Female, 88 years old. Left total hip arthroplasty. TECHNIQUE: 3 views of the pelvis and hip. COMPARISON: None. FINDINGS: There is a total hip arthroplasty in anatomic alignment with expected post-operative findings. There are no complications noted. Mild arthrosis of the right hip. RAD/HIP, UNI W/ Pelvis 2-3 Views IMPRESSION: Placement of total hip arthroplasty in anatomic alignment without complications. Electronically Signed: Antonio Joseph MD at 14:39 EST ,
[2023-06-25] MEDS: traMADol 50 MG Tablet PO (03:29)
[2023-06-25 05:35] LABS: Hemoglobin 8.7 g/dL (12.0-15.0)
[2023-06-25] MEDS: Acetaminophen 500 MG Tablet 1000 MG PO ×3 (05:50→20:58)
[2023-06-25] MEDS: Ensure Plus High Protein 120 ML LIQUID PO ×4 (05:50→20:58)
[2023-06-25 08:17] VITALS: BP 124/65; PULSE 99
[2023-06-25] MEDS: Cholecalciferol (VIT D3) 25 MCG TABLET (1,000 UNITS) PO (08:18)
[2023-06-25] MEDS: Folic Acid 1 MG Tablet PO (08:18)
[2023-06-25] MEDS: Aspirin 81 MG TAB.CHEW PO ×2 (08:18→17:05)
[2023-06-25] MEDS: Famotidine 20 MG Tablet PO (08:19)
[2023-06-25] MEDS: Losartan Potassium 25 MG Tablet PO (08:19)
[2023-06-25] MEDS: Sertraline 100 MG Tablet PO (08:20)
[2023-06-25] MEDS: Ferrous Sulfate 325 MG Tablet PO ×2 (11:20→17:05)
--- NOTE | 2023-06-25 13:20 | CASEMGMT ---
Social Work Pt requesting to speak with this worker about DC. SW spoke with pt about request. Pt is agreeable to any DC date that her family agrees to. SW phoned gddt to inquire. Gddtr and family prefer 06/28 d/t work schedule. Gdtr also prefers outpatient therapy and pt's dtr will transport. Pt has own FWW and has no other DME needs. Gdtr also requesting handicap placard. SW to request from dtr. SUJATHA inquired about preference for OP PT/ST. Gdtr prefers [facility]. SW faxed referral to [facility] for PT/ST. Plan: DC home alone 06/28, [facility] PT/ST PEDRO Ortiz
[2023-06-25 16:00] VITALS: BP 136/72; PULSE 72; RESP 14; TEMP 36.4; O2SAT 98
--- NOTE | 2023-06-25 17:41 | DS.PCM_ITS ---
Providers Date of Admission: 06/13/23 Primary Care Physician: Dr. Marco Angel MD Reason For Visit: TOTAL LEFT HIP ARTHROPLASTY Diagnosis Discharge Diagnosis (1) Debility: Status: Acute Code(s): R53.81 - Other malaise (2) Status post total hip replacement, left: Status: Acute Code(s): Z96.642 - Presence of left artificial hip joint (3) HTN (hypertension): Status: Chronic Code(s): I10 - Essential (primary) hypertension (4) Depression: Status: Acute Code(s): F32.9 - Major depressive disorder, single episode, unspecified (5) Hx of breast cancer: Status: Acute Code(s): Z85.3 - Personal history of malignant neoplasm of breast Plan 88 year old female with below past medical history hospitalized for left total hip replacement 06/10/[address] Gay, admitted to TCU with debility, here for rehabilitation, strengthening, prior to disposition determination. * Debility - PT/OT. * Pain - Tylenol 1000mg q8, Tramadol 50mg q6 prn pain (1-10). * Bowel - Miralax 17gm daily, senna/colace 1 tablet bid, Magnesium citrate 300ml po daily prn. * Adult immunization - Administer pneumonia vaccine, covid vaccine, flu vaccine as appropriate. * DVT prophylaxis - Aspirin 81mg bid thru 07/13/2023. * Vitamin D deficiency - D3 25mcg daily. * GERD - Famotidine 20mg daily. * Iron deficiency anemia - Ferrous sulfate 325mg bid, Folic acid 1mg daily. * Hypertension - Losartan 25mg daily. * Depression - Sertraline 100mg daily, stable chronic [facility] use, GDR not recommended. Medications at Discharge Home Medications cholecalciferol (vitamin D3) 25 mcg (1,000 unit) tablet 1,000 unit PO DAILY supplement 01/16/16 cyanocobalamin (vitamin B-12) 500 mcg tablet 500 mcg PO DAILY@0800 supplement 06/06/19 sertraline 100 mg tablet 100 mg PO DAILY mood 12/06/20 valsartan 80 mg tablet 80 mg PO DAILY BP 12/06/20 famotidine 20 mg tablet (Acid Controller) 20 mg PO DAILY acid reflux 06/13/23 acetaminophen 500 mg tablet 1,000 mg (2 x 500 mg) PO Q8 #0 tabs 12/13/23 aspirin 81 mg chewable tablet 81 mg PO BIDCM 15 days #0 tabs 06/25/23 ferrous sulfate 325 mg (65 mg iron) tablet (FeroSul) 325 mg PO BID@1200,1700 30 days #60 tabs 06/25/23 folic acid 1 mg tablet 1 mg PO DAILYCM 30 days #30 tabs 06/25/23 polyethylene glycol 3350 17 gram oral powder packet 17 g PO DAILY 30 days #30 ea 06/25/23 sennosides 8.6 mg-docusate sodium 50 mg tablet (Stool Softener-Stimulant Laxative) 1 tab PO BID 30 days #60 tabs 06/25/23 tramadol 50 mg tablet 50 mg PO Q6H PRN Pain Score 1-10 7 days #28 tabs 06/25/23 Hospital Course Operations total hip replacement (Left.) Procedures None Summary of Care Provided Minutes Spent on Discharge: 35 Hospital Course: 88 year old female with below past medical history hospitalized for left total hip replacement 06/10/[address] Gay, admitted to TCU with debility, here for rehabilitation, strengthening, prior to disposition determination. Discharge home alone 06/28/2023, [facility] PT/ST. Physical Exam Const alert General Appearance: cooperative HEENT normocephalic Eyes PERRL and EOMs intact bilaterally Neck supple, no JVD and no carotid bruits Resp normal respiratory effort, normal air movement and clear to auscultation bilaterally Cardio regular rate and regular rhythm GI normal to inspection, nondistended, normoactive bowel sounds, non-tender and non-distended Extremity normal capillary refill General Extremity: Negative for edema Skin no rashes or lesions noted General Skin Exam: no breakdown Psych affect normal Appearance: appropriate Weight / BMI Weight Weight: 57.516 kg Body Mass Index (BMI) 19.8 ABG / Lab / Microbiology Data 06/25/23 05:19 06/21/23 07:55 Laboratory: Laboratory Results - last 24 hr 06/25/23 05:19: Hgb 8.7 L, Hct 28.0 L Microbiology: Microbiology 06/23/23 05:32 Nasal Secretion SARS-CoV-2 Antigen (Rapid) - Final 06/19/23 05:00 Nasal Secretion SARS-CoV-2 Antigen (Rapid) - Final 06/16/23 03:53 Nasal Secretion SARS-CoV-2 Antigen (Rapid) - Final D/C Instructions Discharge Diet: No restrictions Discharge Activity: Return to Normal Activity, May Shower and Use Walker Weight Bearing Status: Weight bearing as tolerated Call your doctor if you observe: Fever of 101 or Higher, Inability to urinate, Inability to have a bowel movement, Shortness of breath, Dizziness, Fainting spells, Swelling in the ankles, Chest pain and Uncontrolled pain Additional Instructions: Discharge home alone 06/28/2023, [facility] PT/ST. Please Follow Up With: Vinita Quevedo PA-C When: As scheduled. Meaningful Use Info Meaningful Use Diagnoses (Choose all that apply): None applicable Discharge Plan Admission Admit Date/Time: 06/13/23 14:09 Primary Reason for Your Visit: Debility. Attending Provider: Dandre Hernández Chi Primary Care Provider: Marco Angel Instructions Additional Instructions / Restrictions: Discharge home alone 06/28/2023, [facility] PT/ST. Discharge Orders/Prescriptions Prescriptions: New polyethylene glycol 3350 17 gram Powder In Packet 17 g PO DAILY 30 Days Qty: 30 0RF sennosides-docusate sodium [Stool Softener-Stimulant Laxat] 8.6-50 mg Tablet 1 tab PO BID 30 Days Qty: 60 0RF tramadol 50 mg Tablet 50 mg PO Q6H PRN (Reason: Pain Score 1-10) 7 Days Qty: 28 0RF acetaminophen 500 mg Tablet 1,000 mg PO Q8 Qty: 0 0RF ferrous sulfate [FeroSul] 325 mg (65 mg iron) Tablet 325 mg PO BID@1200,1700 30 Days Qty: 60 0RF aspirin 81 mg Tablet,Chewable 81 mg PO BIDCM 15 Days Qty: 0 0RF folic acid 1 mg Tablet 1 mg PO DAILYCM 30 Days Qty: 30 0RF Continued sertraline 100 mg tablet 100 mg PO DAILY valsartan 80 mg tablet 80 mg PO DAILY cholecalciferol (vitamin D3) 1,000 UNIT tablet 1,000 unit PO DAILY cyanocobalamin (vitamin B-12) 500 MCG tablet 500 mcg PO DAILY@0800 famotidine [Acid Controller] 20 mg tablet 20 mg PO DAILY Discontinued amlodipine 5 mg tablet 5 mg PO DAILY ferrous sulfate 325 mg (65 mg iron) tablet,delayed release (DR/EC) 325 mg PO BID acetaminophen 500 mg capsule 1,000 mg PO Q8H PRN PRN (Reason: pain (scale score 1-3)) aspirin [Aspirin Childrens] 81 mg tablet,chewable 81 mg PO BID folic acid 1 mg tablet 1 mg PO DAILY tramadol 50 mg tablet 50 - 100 mg PO Q6H Rx Instructions: Take 1-2 tabs Q6hrs Referrals / Follow Up: Marco Angel MD [Primary Care Provider] - Disposition Disposition (needs filled in before D/C Order can be placed): Home, Self Care
[2023-06-26] MEDS: Ensure Plus High Protein 120 ML LIQUID PO ×4 (05:07→21:16)
[2023-06-26] MEDS: Acetaminophen 500 MG Tablet 1000 MG PO ×3 (05:07→21:15)
[2023-06-26] MEDS: Cholecalciferol (VIT D3) 25 MCG TABLET (1,000 UNITS) PO (09:09)
[2023-06-26] MEDS: Aspirin 81 MG TAB.CHEW PO ×2 (09:09→17:08)
[2023-06-26] MEDS: Folic Acid 1 MG Tablet PO (09:09)
[2023-06-26] MEDS: Senna/Docusate Sodium 1 Tablet PO ×2 (09:11→21:16)
[2023-06-26] MEDS: Famotidine 20 MG Tablet PO (09:11)
[2023-06-26] MEDS: Sertraline 100 MG Tablet PO (09:12)
[2023-06-26 09:15] VITALS: BP 114/55; PULSE 86
[2023-06-26] MEDS: Losartan Potassium 25 MG Tablet PO (09:37)
[2023-06-26 10:00] VITALS: PULSE 83; RESP 18; O2SAT 93
[2023-06-26] MEDS: Ferrous Sulfate 325 MG Tablet PO ×2 (11:19→17:08)
[2023-06-26 14:15] VITALS: BP 130/66; PULSE 79; RESP 18; TEMP 36.2; O2SAT 99
[2023-06-27] MEDS: Ensure Plus High Protein 120 ML LIQUID PO ×4 (05:44→20:52)
[2023-06-27] MEDS: Acetaminophen 500 MG Tablet 1000 MG PO ×3 (05:44→20:51)
[2023-06-27 06:04] LABS: Hematocrit 28.5 % (37-47); Hemoglobin 8.6 g/dL (12.0-15.0)
[2023-06-27] MEDS: Folic Acid 1 MG Tablet PO (09:42)
[2023-06-27] MEDS: Sertraline 100 MG Tablet PO (09:43)
[2023-06-27] MEDS: Losartan Potassium 25 MG Tablet PO (09:43)
[2023-06-27] MEDS: Cholecalciferol (VIT D3) 25 MCG TABLET (1,000 UNITS) PO (09:43)
[2023-06-27] MEDS: Famotidine 20 MG Tablet PO (09:43)
[2023-06-27] MEDS: Aspirin 81 MG TAB.CHEW PO ×2 (09:43→18:29)
[2023-06-27 09:47] VITALS: BP 122/64; PULSE 78
--- NOTE | 2023-06-27 09:57 | CASEMGMT ---
Social Work BIMS () and PHQ-2 () completed for MDS assessment. Diana Arango MSW CLOTH PAINTER
[2023-06-27 14:19] VITALS: BP 129/62; PULSE 79; RESP 16; TEMP 36.4; O2SAT 97
[2023-06-27] MEDS: Ferrous Sulfate 325 MG Tablet PO (18:29)
[2023-06-27 20:59] VITALS: O2SAT 94
[2023-06-28] MEDS: Ensure Plus High Protein 120 ML LIQUID PO (06:25)
[2023-06-28] MEDS: Acetaminophen 500 MG Tablet 1000 MG PO (06:29)
[2023-06-28 06:42] VITALS: PULSE 79; RESP 16; O2SAT 98
[2023-06-28 07:12] LABS: Absolute Lymphocyte Count 1.76 X10^3/uL (0.83-4.51); Absolute Neutrophil Count 2.5 X10^3/uL (2.0-7.7); Basophil# 0.03 X10^3/uL; Basophil% 0.6 % (0-1); Eosinophils% 3.8 % (0-5); Hematocrit 29.7 % (37-47); Hemoglobin 9.3 g/dL (12.0-15.0); Lymphocyte # 1.76 X10^3/ul (0.83-4.51); Lymphocyte % 33.7 % (19-41); Mean Corp Hgb Conc 31.3 g/dL (32-36); Mean Corpuscular Hgb 32.2 pg (27.0-32.0); Mean Corpuscular Volume 102.8 fL (81-99); Mean Platelet Vol. 8.7 fl (6.2-12.0); Monocyte# 0.73 X10^3/uL; NRBC Flagged by Analyzer 0 % (0-5); Neutrophil % 47.7 % (47-70); Platelet Count 318 K/mm3 (150-450); RBC Distribution Width SD 55.8 fl (35.1-43.9); Red Blood Count 2.89 M/mm3 (4.2-5.4); White Blood Count 5.2 K/mm3 (4.4-11.0)
[2023-06-28 07:41] LABS: Anion Gap 2 (5-15); BUN 36 mg/dL (7-18); BUN/Creat Ratio 30.8 RATIO (10-20); Calcium,Total 9.1 mg/dL (8.5-10.1); Chloride 108 mmol/L (98-107); Creatinine, Serum 1.17 mg/dL (0.55-1.02); EST Glomerular Filtration Rate 47 mL/min (>60); Est Glom Filt Rate - Afr Amer 56 mL/min (>60); Estimated Creatinine Clearance 30.76 ml/min; Glucose 107 mg/dL (74-106); Potassium 4.5 mmol/L (3.5-5.1); Sodium Level 141 mmol/L (136-145)
[2023-06-28] MEDS: Folic Acid 1 MG Tablet PO (08:01)
[2023-06-28] MEDS: Cholecalciferol (VIT D3) 25 MCG TABLET (1,000 UNITS) PO (08:01)
[2023-06-28] MEDS: Aspirin 81 MG TAB.CHEW PO (08:01)
[2023-06-28] MEDS: Sertraline 100 MG Tablet PO (09:25)
[2023-06-28] MEDS: Famotidine 20 MG Tablet PO (09:26)
[2023-06-28] MEDS: Losartan Potassium 25 MG Tablet PO (09:26)
[2023-06-28 10:03] VITALS: BP 119/63; PULSE 80; RESP 14; TEMP 36.2; O2SAT 96
== END 2023-06-28 11:05 | disposition home or self-care (01) | DRG 561 ==
PROVIDERS: Admitting Provider Family Medicine Geriatric Medicine; PCP Family Medicine; Referring Provider Family Medicine Geriatric Medicine; Visit Provider Family Medicine Geriatric Medicine
DX: Z47.1 Aftercare following joint replacement surgery (principal); D50.9 Iron deficiency anemia, unspecified; I10 Essential (primary) hypertension; F32.9 Major depressive disorder, single episode, unspecified; K21.9 Gastro-esophageal reflux disease without esophagitis; E55.9 Vitamin D deficiency, unspecified; Z79.82 Long term (current) use of aspirin; Z96.642 Presence of left artificial hip joint; Z79.899 Other long term (current) drug therapy
CPT/HCPCS: 36415; 73502; 80048; 85014; 85018; 85025; 87811; 92523; 92526; 92610; 97110; 97116; 97129; 97130; 97162; 97165; 97530; 97535; 97802

== ENCOUNTER → 2023-06-23 | Outpatient (CLI) | payer MEDICARE, OTHER, SELFPAY | END | disposition home or self-care (01) | LOC: RAD.FUTURE 13:32 | PROVIDERS: PCP Family Medicine; Referring Provider Specialist; Visit Provider Specialist | DX: Z96.642 Presence of left artificial hip joint (principal) ==

== ENCOUNTER 2023-07-04 11:01 | Outpatient (RCR) | payer MEDICARE, OTHER, SELFPAY ==
--- NOTE | 2023-07-04 11:44 | HP.PTEVAL_ITS ---
Patient's Visit Information Visit Information Visit Information: OBED WRIGHT is a 88 year old F referred to Physical Therapy by Dr. Dandre Hernández MD with a diagnosis of Left THR Posterior Approach 05/29/23. Date of Evaluation: 07/04/23 Physical Therapist: Em Cruz DPT Visit Plan Frequency: 1x/Week Duration: 4 Weeks Plan: Pt will perform HEP for 4 weeks- will call if questions and schedule if issues arise- will recheck in 4 weeks- d/c if no issues Reviewed HEP at IE Subjective Subjective: Left THR by Dr. Gay May 29- and then she went to the TCU and then finally went home on Jun 28. She lives alone- 4 stairs she lives in a trailer- with a hand rail- with no problems getting in/out. She normally drives but is not allowed to drive for another month. She is fully with all of her ADL's and her kids come over and are doing her cleaning for her. She has not been out- her kids have been doing all of her outside stuff for her. She does have some pain in her hip when she does her exercises- Worst: 2/10 Best: 0/10. She is on her normal medication but nothing more. She only takes the pain medication when she goes to bed. No N/T in the left leg. She has no problems sleeping- in her bed. She has both a cane and a walker but she is not using either today. She reports that she does use her walker inside the trailer some times. She is doing her exercises daily and she has papers to help her remember. She feels that she is 95% back to normal. No changes in PMHx/Meds since being d/c from hospital. Objective Objective: Posture: forward head, rounded shoulders Gait: no deviation noted- no AD HR/TR: able with UE A SLS: 5 sec without UE A Stairs: asc/desc single HR- recip Sensation: WNL to gross touch bilateral LE ROM: WFL Strength: Core: fair, Hip: flexion: 8.8 lbs, extn:32.5, abd: 4+/5, Add: 4+/5, Knee: 4+.5 Ankle: 5/5 Flex: HS: moderate, Gastroc: moderate Balance/Special Test Scores TUG Test Time Seconds: 10.4 30 Second Chair Rise Test Seconds: 20 WOMAC Total Score: 2 WOMAC Percentatge: 97.9200 Rehabilitation Potential Physical Therapy Diagnosis: Patient is s/p THR 05/29/23 and full indep with all ADL's and has returned to baseline with functional mobility Anticipated Interventions Patient/Client Instruction: Educate patient on: Benefits of Fitness Program Text: Thank you for the opportunity to evaluate your patient. For Medicare and Medicare HMO plans, please review the plan of care and approve it. It will need to be FAXED BACK to us at [phone] for Medicare purposes. For Medicare only, by signing this I certify the plan of care. Please let me know if there are questions or concerns regarding this plan of care. Physician Signature: Date:
== END 2023-07-04 19:00 | disposition home or self-care (01) ==
LOC: PT 11:01
PROVIDERS: PCP Family Medicine; Referring Provider Family Medicine Geriatric Medicine; Visit Provider Family Medicine Geriatric Medicine
DX: R13.10 Dysphagia, unspecified (principal); F09 Unspecified mental disorder due to known physiological condition; Z96.642 Presence of left artificial hip joint
CPT/HCPCS: 97162

== ENCOUNTER → 2023-07-09 | Outpatient (CLI) | payer MEDICARE, OTHER, SELFPAY ==
[2023-07-09 12:26] LABS: Absolute Lymphocyte Count 1.04 X10^3/uL (0.83-4.51); Absolute Neutrophil Count 2.7 X10^3/uL (2.0-7.7); Basophil# 0.02 X10^3/uL; Basophil% 0.4 % (0-1); Eosinophil# 0.16 X10^3/uL; Eosinophils% 3.5 % (0-5); Hematocrit 37.3 % (37-47); Hemoglobin 11.2 g/dL (12.0-15.0); Lymphocyte # 1.04 X10^3/ul (0.83-4.51); Mean Corpuscular Volume 103.3 fL (81-99); Mean Platelet Vol. 9.8 fl (6.2-12.0); Monocyte# 0.59 X10^3/uL; Monocyte% 13.1 % (0-10); NRBC Flagged by Analyzer 0 % (0-5); Neutrophil % 59.8 % (47-70); Platelet Count 251 K/mm3 (150-450); RBC Distribution Width CV 13.9 % (11.6-14.6); RBC Distribution Width SD 53.6 fl (35.1-43.9); Red Blood Count 3.61 M/mm3 (4.2-5.4); White Blood Count 4.5 K/mm3 (4.4-11.0)
[2023-07-09 12:59] LABS: ALB/GLOB Ratio 0.9 RATIO (0.9-2.4); AST(SGOT) 14 U/L (15-37); Alanine Aminotransfer ALT/SGPT 20 U/L (13-56); Albumin, Serum 3.5 g/dL (3.2-5.0); Alkaline Phosphatase 133 U/L (45-117); Anion Gap 2 (5-15); BUN 19 mg/dL (7-18); BUN/Creat Ratio 15.4 RATIO (10-20); Calcium,Total 9.6 mg/dL (8.5-10.1); Chloride 108 mmol/L (98-107); Creatinine, Serum 1.23 mg/dL (0.55-1.02); EST Glomerular Filtration Rate 44 mL/min (>60); Est Glom Filt Rate - Afr Amer 53 mL/min (>60); Globulin 3.7 g/dL (2.2-4.2); Glucose 85 mg/dL (74-106); Potassium 3.9 mmol/L (3.5-5.1); Protein, Total 7.2 g/dL (6.4-8.2); Sodium Level 141 mmol/L (136-145)
== END | disposition home or self-care (01) ==
LOC: MFPLAB 10:55
PROVIDERS: PCP Family Medicine; Visit Provider Family Medicine
DX: D64.9 Anemia, unspecified (principal); R79.89 Other specified abnormal findings of blood chemistry
CPT/HCPCS: 36415; 80053; 85025

== ENCOUNTER → 2023-08-29 | Outpatient (CLI) | payer MEDICARE, OTHER, SELFPAY ==
--- OUTSIDE RECORDS SUMMARY | 2023-08-29 11:29 | XMS RPT_ITS | CCD ---
Author Name Unknown Address [address] [place] [address] Organization [facility] Care Team Providers Care Family Preservation Caseworker Name Role Phone SOM BRITTON, PRIYANKA Calabrese Primary Care Physician [phone] SOM BRITTON, PRIYANKA Calabrese Primary Care Unavailable AYDEN BRITTON, DR TELLO Calabrese Attending Unavailab payal PARK APRN-GRAIN RECEIVER, KELVIN Brewster Consulting Yajaira ANGEL MD, PRIYANKA Calabrese Primary Care Unavailable AYDEN BRITTON, DR TELLO Calabrese Admitting Unavailab payal HENSLEY MD, DR TELLO Calabrese Attending Unavailab VINITA Rajput PA-C Consulting Unavailable SOM BRITTON, PRIYANKA Calabrese Consulting Unavailable Allergies Allergy Classification Reported Allergen(s) Allergy Type Date of Onset Reaction(s) Facility (1 source) diphenhydrAMINE / Ibuprofen; Translations: [diphenhydrAMINE-ibu profen] Drug Allergy [facility] (1 source) Penicillin; Translations: [penicillin] Drug Allergy [facility] Medications Current Medications Medication Drug Class(es) Dates Sig (Normalized) Sig (Original) acetaminophen 500 mg oral tablet (1 source) Start: 06-13-2023 End: 07-04-2023 take 1 tablet by mouth once daily acetaminophen 500 mg oral tablet Dose : 1,000 mg = 2 tab(s), Oral, TID, PRN as needed for pain, not to exceed 3000 mg/day, # 100 tab(s), 0 Refill(s), 07/04/23 6:42:00 AM EST Start Date: 06/13/23 Stop Date: 07/04/23 Status: Ordered aspirin 81 mg oral tablet (1 source) Platelet Aggregation Inhibitor, Nonsteroidal Anti-inflammatory Drug Start: 06-13-2023 End: 07-12-2023 take 1 tablet by mouth twice daily at mealtime aspirin Dose : 81 mg = 1 tab(s), Oral, BIDM, Take 81 mg aspirin twice daily with food for 4 weeks postoperatively for DVT prophylaxis., 0 Refill(s) Start Date: 06/13/23 Stop Date: 07/12/23 Status: Ordered famotidine 20 mg oral tablet (1 source) Histamine-2 Receptor Antagonist Start: 06-13-2023 End: 07-12-2023 Pepcid 20 mg oral tablet Dose : 20 mg = 1 tab(s), Oral, qDay, 0 Refill(s) Start Date: 06/13/23 Stop Date: 07/12/23 Status: Ordered ferrous sulfate 325 mg oral tablet (1 source) Start: 06-13-2023 ferrous sulfate 325 mg (65 mg elemental iron) oral tablet Dose : 325 mg = 1 tab(s), Oral, BID, 0 Refill(s), Anemia Start Date: 06/13/23 Status: Ordered folic acid 1 mg oral tablet (1 source) Start: 06-13-2023 folic acid 1 mg oral tablet Dose : 1 mg = 1 tab(s), Oral, qDay, 0 Refill(s), Anemia Start Date: 06/13/23 Status: Ordered sertraline 100 mg oral tablet (2 sources) Serotonin Reuptake Inhibitor Start: 05-12-2023 sertraline 100 mg oral tablet Dose : 100 mg = 1 tab(s), Oral, Daily, 0 Refill(s) Start Date: 05/12/23 Status: Ordered traMADol hydrochloride 50 mg oral tablet (1 source) Opioid Agonist Start: 06-13-2023 End: 06-20-2023 take 1-2 tablets by mouth every six hours as needed for pain traMADol 50 mg oral tablet See Instructions, PRN as needed for pain, 1-2 tab(s) Oral q6h, # 20 tab(s), 0 Refill(s), 06/20/23 6:41:00 AM EST, S/P total left hip arthroplasty, 56.3 Start Date: 06/13/23 Stop Date: 06/20/23 Status: Ordered valsartan 80 mg oral tablet (2 sources) Angiotensin 2 Receptor Jordan Start: 05-12-2023 valsartan 80 mg oral tablet Dose : 80 mg = 1 tab(s), Oral, qDay, # 90 tab(s), 0 Refill(s) Start Date: 05/12/23 Status: Ordered Vitamin B12 50 mcg oral tablet (2 sources) Start: 05-12-2023 Vitamin B12 50 mcg oral tablet Dose : 50 mcg = 1 tab(s), Oral, qDay, # 90 tab(s), 0 Refill(s) Start Date: 05/12/23 Status: Ordered Vitamin D3 (2 sources) Start: 05-12-2023 Vitamin D3 Dose : 25 mcg = 1 tab(s), Oral, Daily, # 30 tab(s), 0 Refill(s) Start Date: 05/12/23 Status: Ordered Problems Problem Classification Problem Date Documented Da te Episodic/Chronic Chronic kidney disease (1 source) Chronic kidney disease stage 3A ; Translations: [Chronic kidney disease, stage 3a] Onset: 06-10-2023 Chronic Deficiency and other anemia (1 source) Anemia; Translations: [Anemia, unspecified] Onset: 06-11-2023 Episodic Essential hypertension (1 source) Essential hypertension; Translations: [Essential (primary) hypertension] Onset: 06-10-2023 Chronic Osteoarthritis (1 source) Osteoarthritis; Translations: [Unspecified osteoarthritis, unspecified site] Onset: 06-12-2023 Chronic Other connective tissue disease (1 source) Hip joint prosthesis present; Translations: [Presence of left artificial hip joint] Onset: 06-13-2023 Chronic Results Test Name Value Interpretation Reference Range Facil ity Vital Signs Date Time Vital Sign Value Performing Clinician Adarshi veronica 06-13-2023 12:00-0500 Diastolic Blood Pressure Non-Invasive 64 mm[Hg] DR TELLO HENSLEY MD [facility] 06-13-2023 12:00-0500 Systolic Blood Pressure Non-Invasive 147 mm[Hg] DR TELLO HENSLEY MD [facility] 06-13-2023 06:17-0500 Body temperature 97.7 [degF] DR TELLO HENSLEY MD [facility] 06-13-2023 06:17-0500 Diastolic Blood Pressure Non-Invasive 63 mm[Hg] DR TELLO HENSLEY MD [facility] 06-13-2023 06:17-0500 Heart rate 84 /min DR TELLO HENSLEY MD [facility] 06-13-2023 06:17-0500 Reason For Taking VItal Signs DR TELLO HENSLEY MD [facility] 06-13-2023 06:17-0500 Respiratory rate 18 /min DR TELLO HENSLEY MD [facility] 06-13-2023 06:17-0500 Systolic Blood Pressure Non-Invasive 142 mm[Hg] DR TELLO HENSLEY MD [facility] 06-12-2023 23:57-0500 Body temperature 97.7 [degF] DR TELLO HENSLEY MD [facility] 06-12-2023 23:57-0500 Diastolic Blood Pressure Non-Invasive 67 mm[Hg] DR TELLO HENSLEY MD [facility] 06-12-2023 23:57-0500 Heart rate 89 /min DR TELLO HENSLEY MD [facility] 06-12-2023 23:57-0500 Reason For Taking VItal Signs DR TELLO HENSLEY MD [facility] 06-12-2023 23:57-0500 Respiratory rate 18 /min DR TELLO HENSLEY MD [facility] 06-12-2023 23:57-0500 Systolic Blood Pressure Non-Invasive 154 mm[Hg] DR TELLO HENSLEY MD [facility] 06-12-2023 16:00-0500 Heart rate 71 /min DR TELLO HENSLEY MD [facility] 06-12-2023 11:30-0500 Heart rate 76 /min DR TELLO HENSLEY MD [facility] 06-12-2023 06:38-0500 Heart rate 73 /min DR TELLO HENSLEY MD [facility] 06-11-2023 07:51-0500 Heart rate 70 /min DR TELLO HENSLEY MD [facility] 06-10-2023 14:07-0500 Body height 170.[address] TELLO HENSLEY MD [facility] 06-10-2023 14:07-0500 Body weight 56.[address] TELLO HENSLEY MD [facility] 06-10-2023 14:07-0500 Body weight 19.44 kg/m2 DR TELLO HENSLEY MD [facility] 06-10-2023 14:01-0500 Body temperature 96.08 [degF] DR TELLO HENSLEY MD [facility] 06-10-2023 12:15-0500 Body temperature 96.44 [degF] DR TELLO HENSLEY MD [facility] 06-10-2023 12:10-0500 Respiratory Rate - Anes 15 br/min DR TELLO HENSLEY MD [facility] 06-10-2023 12:05-0500 Respiratory Rate - Anes 21 br/min DR TELLO HENSLEY MD [facility] 06-10-2023 12:00-0500 Respiratory Rate - Anes 14 br/min DR TELLO HENSLEY MD [facility] 06-10-2023 08:30-0500 Body weight 20.19 kg/m2 DR TELLO HENSLEY MD [facility] 06-10-2023 08:25-0500 Body height [address] TELLO HENSLEY MD [facility] 06-10-2023 08:25-0500 Body temperature 97.7 [degF] DR TELLO HENSLEY MD [facility] 06-10-2023 08:25-0500 Body weight 56.[address] TELLO HENSLEY MD [facility] 06-10-2023 08:25-0500 Heart rate 68 /min DR TELLO HENSLEY MD [facility] 05-12-2023 13:05-[address] TELLO HENSLEY MD [facility] 05-12-2023 13:05-[address] TELLO Sanchez [facility] 05-12-2023 13:05-0400 Body height 170.[address] TELLO HENSLEY MD [facility] 05-12-2023 13:05-0400 Body weight 54.[address] TELLO HENSLEY MD [facility] 05-12-2023 13:05-0400 Body weight 18.81 kg/m2 DR TELLO HENSLEY MD [facility] 05-12-2023 13:05-0400 Diastolic Blood Pressure Non-Invasive [address] TELLO HENSLEY MD [facility] 05-12-2023 13:05-0400 Heart rate 74 /min DR TELLO HENSLEY MD [facility] 05-12-2023 13:05-0400 Respiratory rate 18 /min DR TELLO HENSLEY MD [facility] 05-12-2023 13:05-0400 Systolic Blood Pressure Non-Invasive [address] TELLO HENSLEY MD [facility] Encounters Encounter Date Encounter Type Care Provider Facility Start: 06-10-2023 End: 06-13-2023 Evaluation and management of inpatient KELVIN PARK OIL RAG WASHER-GRAIN RECEIVER Facility:B Start: 06-10-2023 End: 06-13-2023 Evaluation and management of inpatient DR TELLO HENSLEY MD [facility] Start: 05-12-2023 End: 05-13-2023 ambulatory PRIYANKA ANGEL MD Facility:[facility] Start: 05-12-2023 End: 05-12-[address] TELLO HENSLEY MD [facility] Procedures Date Procedure Procedure Detail Performing Clinician Colonoscopy DR TELLO Epstein MD Mastectomy of left breast DR TELLO HENSLEY MD Immunizations Immunization Date Immunization Notes Care Provider Fa avera [facility] 12-10-2022 pneumococcal 20-edmundo nt conjugate vaccine DR TLELO HENSLEY MD [facility] 12-10-2022 tetanus toxoid, redu michael diphtheria toxoid, and acellular pertussis vaccine, adsorbed DR TELLO HENSLEY MD [facility] 07-10-2021 influenza virus vaccine, unspecified formulation DR TELLO HENSLEY MD [facility] 06-20-2021 SARS-CoV-2 (COVID-19 ) mRNA-[address] TELLO HENSLEY MD [facility] 09-22-2020 SARS-CoV-2 (COVID-19 ) mRNA-[address] TELLO HENSLEY MD [facility] 08-25-2020 SARS-CoV-2 (COVID-19 ) mRNA-[address] TELLO HENSLEY MD [facility] Payers Date Payer Category Payer Medicare [id number] 2023 Unknown [id number] 1935 Unknown [id number] 1935 Unknown [id number] Social History Date Type Detail Facility Start: 05-12-2023 Tobacco smoking status Never s moked tobacco (finding) [facility] Sex Assigned At Female [facility] Functional Status Date Assessment Result Facility 06-13-2023 Functional Status Door open, Room check performed [facility] 06-13-2023 Functional Status [facility] 06-12-2023 Functional Status [facility] 06-12-2023 Functional Status Demonstrates C orrect Call Light Use Yes [facility] 06-12-2023 Functional Status [facility] 06-12-2023 Functional Status Min A 7 [facility] 06-12-2023 Functional Status Supervised [facility] 06-12-2023 Functional Status [facility] 06-12-2023 Functional Status [facility] 06-11-2023 Functional Status [facility] 06-11-2023 Functional Status Patient refused [facility] 06-10-2023 Functional Status Ambulation in Room [facility] 06-10-2023 Functional Status Mod A [facility] 06-10-2023 Functional Status Mobile home [facility] 06-10-2023 Functional Status ice on, tension pillow in place [facility] 06-10-2023 Functional Status Maintained [facility] Mental Status Date Assessment Result Facility 06-13-2023 Mental Status Oriented x 4 [facility] 06-12-2023 Mental Status [facility] 06-12-2023 Mental Status [facility] 06-12-2023 Mental Status [facility] Clinical Notes 10-13-2020 to 06-13-2023 Note Date & Type Note Facility 06-13-2023 Hospital Discharg e instructions Patient Education 06/13/2023 10:00:36 Anemia Anemia Anemia is a condition in which you do not have enough red blood cells or hemoglobin. Hemoglobin is a substance in red blood cells that carries oxygen. When you do not have enough red blood cells or hemoglobin (are anemic), your body cannot get enough oxygen and your organs may not work properly. As a result, you may feel very tired or have other problems. What are the causes? Common causes of anemia include: Excessive bleeding. Anemia can be caused by excessive bleeding inside or outside the body, including bleeding from the intestine or from periods in women. Poor nutrition. Long-lasting (chronic) kidney, thyroid, and liver disease. Bone marrow disorders. Cancer and treatments for cancer. HIV (human immunodeficiency virus) and AIDS (acquired immunodeficiency syndrome). Treatments for HIV and AIDS. Spleen problems. Blood disorders. Infections, medicines, and autoimmune disorders that destroy red blood cells. What are the signs or symptoms? Symptoms of this condition include: Minor weakness. Dizziness. Headache. Feeling heartbeats that are irregular or faster than normal (palpitations). Shortness of breath, especially with exercise. Paleness. Cold sensitivity. Indigestion. Nausea. Difficulty sleeping. Difficulty concentrating. Symptoms may occur suddenly or develop slowly. If your anemia is mild, you may not have symptoms. How is this diagnosed? This condition is diagnosed based on: Blood tests. Your medical history. A physical exam. Bone marrow biopsy. Your health care provider may also check your stool (feces) for blood and may do additional testing to look for the cause of your bleeding. You may also have other tests, including: Imaging tests, such as a CT scan or MRI. Endoscopy. Colonoscopy. How is this treated? Treatment for this condition depends on the cause. If you continue to lose a lot of blood, you may need to be treated at a hospital. Treatment may include: Taking supplements of iron, vitamin B12, or folic acid. Taking a hormone medicine (erythropoietin) that can help to stimulate red blood cell growth. Having a blood transfusion. This may be needed if you lose a lot of blood. Making changes to your diet. Having surgery to remove your spleen. Follow these instructions at home: Take tecz-msz-iaarzax and prescription medicines only as told by your health care provider. Take supplements only as told by your health care provider. Follow any diet instructions that you were given. Keep all follow-up visits as told by your health care provider. This is important. Contact a health care provider if: You develop new bleeding anywhere in the body. Get help right away if: You are very weak. You are short of breath. You have pain in your abdomen or chest. You are dizzy or feel faint. You have trouble concentrating. You have bloody or black, tarry stools. You vomit repeatedly or you vomit up blood. Summary Anemia is a condition in which you do not have enough red blood cells or enough of a substance in your red blood cells that carries oxygen (hemoglobin). Symptoms may occur suddenly or develop slowly. If your anemia is mild, you may not have symptoms. This condition is diagnosed with blood tests as well as a medical history and physical exam. Other tests may be needed. Treatment for this condition depends on the cause of the anemia. This information is not intended to replace advice given to you by your health care provider. Make sure you discuss any questions you have with your health care provider. Document Released: 08/07/2005 Document Revised: 06/12/2018 Document Reviewed: 08/01/2017 [employer] Patient Education 2020 [employer]. 06/13/2023 10:00:32 Total Hip Replacement, Posterior, Care After Total Hip Replacement, Posterior, Care After This sheet gives you information about how to care for yourself after your procedure. Your health care provider may also give you more specific instructions. If you have problems or questions, contact your health care provider. What can I expect after the procedure? After the procedure, it is common to have: Pain and swelling. A small amount of blood or clear fluid coming from your incision. Follow these instructions at home: Medicines Take mlkb-ctt-cuzfrwg and prescription medicines only as told by your health care provider. If you were prescribed a blood thinner (anticoagulant), take it as told by your health care provider. Activity Ask your health care provider what activities are safe for you. Do exercises as told by your health care provider or physical therapist. Rest often, but move around as much as you can tolerate. Movement helps you heal and helps to prevent stiffness, skin sores, and blood clots. Do not use your legs to support (bear) your body weight until your health care provider approves. Follow instructions about how much weight you may safely support on your affected leg (weight-bearing restrictions). Use crutches or a walker as told by your health care provider. Movement restrictions To help prevent hip dislocation, follow instructions about movement restrictions as told by your health care provider. For example: ?Do not cross your legs at the knees. To remind yourself about this, you may keep a pillow between your legs while lying in bed. ?Do not bend at the hip and waist or bend farther than 90 degrees of hip flexion. To avoid bending this far: ?Do not bring your knees higher than your hips. ?Do not seed cone picker something from the floor while sitting in a chair. ?Avoid sitting in low chairs. ?Use a raised toilet seat. ?When standing up from a seated position, keep the injured leg out in front of you. ?Avoid twisting at your waist and reaching across your body to the side of the affected leg. ?Avoid rotating your toes inward on the affected leg. When getting into a car: 1.Raise the seat as high as possible, move the seat as far back as it will go, and recline the upper part of the seat slightly. 2.Sit down into the seat with your injured leg extended out of the car. 3.Scoot back in the seat as you move the lower half of your body into the car. Try to avoid bumping your foot or leg as you bring it into the car. To make this motion smooth and easy on a cloth seat, try placing a plastic bag on the seat. Incision care Follow instructions from your health care provider about caring for your incision. Make sure you: ?Wash your hands with soap and water before you change your bandage (dressing). If soap and water are not available, use alcohol-based hand j2ee application developer. ?Change your dressing as told by your health care provider. ?Leave stitches (sutures), skin glue, or adhesive strips in place. These skin closures may need to stay in place for 2 weeks or longer. If adhesive strip edges start to loosen and curl up, you may trim the loose edges. Do not remove adhesive strips completely unless your health care provider tells you to do that. Do not take baths, swim, or use a hot tub until your health care provider approves. Check your incision area every day for signs of infection. Check for: ?More redness, swelling, or pain. ?More fluid or blood. ?Warmth. ?Pus or a bad smell. Managing pain, stiffness, and swelling If directed, put ice on the incision area. ?Put ice in a plastic bag. ?Place a towel between your skin and the bag. ?Leave the ice on for 20 minutes, 2 3 times a day. Move your toes often to avoid stiffness and to lessen swelling. Raise (elevate) your leg above the level of your heart while you are sitting or lying down. Driving Ask your health care provider when it is safe to drive. This may not be recommended for up to 6 weeks after surgery. Do not drive or use heavy machinery while taking prescription pain medicine. General instructions Wear compression stockings as told by your health care provider. These stockings help to prevent blood clots and reduce swelling in your legs. Do not use any products that contain nicotine or tobacco, such as cigarettes and e-cigarettes. These can delay bone healing. If you need help quitting, ask your health care provider. If you are taking prescription pain medicine, take actions to prevent or treat constipation. Your health care provider may recommend that you: ?Drink enough fluid to keep your urine pale yellow. ?Eat foods that are high in fiber, such as fresh fruits and vegetables, whole grains, and beans. ?Limit foods that are high in fat and processed sugars, such as fried or sweet foods. ?Take an tmjm-mgj-qbzlkgq or prescription medicine for constipation. Tell your health care provider if you plan to have dental work. Also: ?Tell your dentist about your joint replacement. ?Ask your health care provider if there are any special instructions you need to follow before having dental care and routine cleanings. Keep all follow-up visits as told by your health care provider. This is important. Contact a health care provider if: You have difficulty breathing. You have either of these at your incision site: ?Any symptoms of infection. ?Persistent bleeding. Your incision breaks open after sutures (stitches) or damián are removed. You have a fever. Get help right away if: You have more redness, swelling, or pain in the leg you had surgery on. You have pain or swelling in your calf or thigh. You have shortness of breath or chest pain. You have pain that is not relieved by pain medicine. Summary Do not use your legs to support your body weight until your health care provider approves. Use crutches or a walker as told. To help prevent hip dislocation, follow instructions about movement restrictions as told. If you were prescribed a blood thinner (anticoagulant), take it as told by your health care provider. Keep all follow-up visits as told by your health care provider. This is important. This information is not intended to replace advice given to you by your health care provider. Make sure you discuss any questions you have with your health care provider. Document Released: 01/17/2006 Document Revised: 11/08/2019 Document Reviewed: 03/25/2018 [employer] Patient Education 2020 [employer]. 06/13/2023 06:37:28 5 - [facility] Post-op Instruction 02/2017 ([id number]) [facility] Post-operative Instructions PLEASE FOLLOW [facility] POST-OP INSTRUCTIONS GIVEN WATCH FOR SIGNS OF INFECTION: call the office ([phone]) if experencing any of the following: (Usually appears 36-48 hours after surgery) Increased temperature (101 degrees Fahrenheit or higher) Redness or swelling Increased uncontrolled pain Foul odor or drainage Calf discomfort Significant swelling Or if having any chest pain, shortness of breath, or difficulty breathing or swallowing call the office or go the nearest Emergency Room. If you have any questions, please call your doctor at the number listed on your follow up instructions. Form: 338A ([id number]) R: 11/17 Follow Up Care 04/15/2023 08:50:16 With:VINITA QUEVEDO PA-C, Orthopedic Address: [address] [place] [address] [facility], [place] [address] [phone] When:06/23/2023 13:45:00 Comments:This is your post-op appointment. Follow-up as scheduled. [facility] 06-13-2023 Note Discharge Instructions Thank you for allowing [facility] to assist you with your healthcare needs. The following is important discharge information regarding your hospital visit. Your Care Team PRIYANKA ANGEL MD [facility] Your Diagnosis Anemia HTN (hypertension) Osteoarthritis S/P total left hip arthroplasty Stage 3a chronic kidney disease (CKD) What to do next Follow Up Appointments Follow Up with VINITA QUEVEDO PA-C, Orthopedic When 06/23/2023 01:45 PM EST Why: This is your post-op appointment. Follow-up as scheduled. Where: [address] [place] [address] [facility], [place] [address] [phone] The Following Activity and Diet Have Been Ordered for You Transfer of Care Activity - Ordered -- Activity As Tolerated, 06/13/23 6:50:00 EST Transfer of Care Diet - Ordered -- Type of Diet: Regular Diet, 06/13/23 6:50:00 EST The Following Equipment Has Been Ordered for You Discharge Home Equipment Transfer of Care Wound Care - Ordered -- Dressing Type: *Other (specify in special instructions), Hip, left, Remove Mepilex dressing on June 16, 2023. Okay to shower and get this dressing wet. Once dressing removed only use gentle soap and water over incision for 6 weeks postop, ... The Following Treatments Have Been Ordered for You Discharge Labs Transfer of Care Labwork - Ordered -- CBC and BMP, Anemia and CKD, follow-up within: 3-5 days, Results Notify to: PRIYANKA ANGEL MD, Will require follow up with PCP upon discharge from [facility], 06/13/23 6:50:00 EST Discharge Radiology No qualifying data available. Other Therapies Transfer of Care OT - Ordered -- Reason for therapy: Post-op left total hip arthroplasty, Direct anterior left total hip arthroplasty, 06/13/23 6:50:00 EST Transfer of Care PT - Ordered -- Your therapy ordered is: Physical therapy, Reason for therapy: Postoperative left total hip arthroplasty, Direct anterior left total hip arthroplasty precautions. Evaluate and treat, 06/13/23 6:50:00 EST Post Acute Orders Transfer of Care Code Status - Ordered -- Full Code, Constant Order Transfer of Care Labwork - Ordered -- CBC and BMP, Anemia and CKD, follow-up within: 3-5 days, Results Notify to: PRIYANKA ANGEL MD, Will require follow up with PCP upon discharge from [facility], 06/13/23 6:50:00 EST Transfer of Care Orders Electronically Signed By - Ordered -- 06/13/23 6:50:00 EST, TELLO HENSLEY MD Transfer of Care Prognosis - Ordered -- Good, Patient Aware: Yes Transfer of Care Rehab Potential - Ordered -- Rehab potential good, 06/13/23 6:50:35 EST Someone Will Contact You Regarding These Home Health Referrals No home referrals have been ordered for you. No one will call you. Allergies Advil PM penicillin Medications Please ask your primary doctor or pharmacist before taking any other medication not listed, including over the counter drugs, herbal medications, vitamins and or supplements as they may interact with your home medications. What How Much When Why Instructions Last Dose New acetaminophen (acetaminophen 500 mg oral tablet) 2 tab(s) by mouth Three (3) times a day as needed for as needed for pain not to exceed 3000 mg/ day Printed Prescription TODAY AT 6AM New aspirin 81 Milligram by mouth Twice daily with meals Duration: 30 Days Take 81 mg aspirin twice daily with food for 4 weeks postoperatively for DVT prophylaxis. TODAY AT 9AM New famotidine (Pepcid 20 mg oral tablet) 1 tab(s) by mouth Once a day Duration: 30 Days TODAY AT 9AM New folic acid (folic acid 1 mg oral tablet) 1 tab(s) by mouth Once a day Anemia TODAY AT 9AM New traMADol (traMADol 50 mg oral tablet) See instructions S/P total left hip arthroplasty 1-2 tab(s) Oral q6h Printed Prescription TODAY AT 9AM Unchanged cholecalciferol (Vitamin D3) 25 Microgram by mouth Every day TODAY AT 9AM Unchanged cyanocobalamin (Vitamin B12 50 mcg oral tablet) 1 tab(s) by mouth Once a day TODAY AT 9AM Unchanged ferrous sulfate (ferrous sulfate 325 mg (65 mg elemental iron) oral tablet) 1 tab(s) by mouth Two (2) times a day Anemia YESTERDAY AT 5PM Unchanged sertraline (sertraline 100 mg oral tablet) 1 tab(s) by mouth Every day TODAY AT 9AM Unchanged valsartan (valsartan 80 mg oral tablet) 1 tab(s) by mouth Once a day TODAY AT 9AM Please take this list to your next doctor s visit. Bring all medications you take, including over the counter medications, herbals and other supplements with you to your doctor s visit. Patients and families are reminded to discard old lists and to update any records with all medication providers or retail pharmacies. Education Materials Anemia Anemia is a condition in which you do not have enough red blood cells or hemoglobin. Hemoglobin is a substance in red blood cells that carries oxygen. When you do not have enough red blood cells or hemoglobin (are anemic), your body cannot get enough oxygen and your organs may not work properly. As a result, you may feel very tired or have other problems. What are the causes? Common causes of anemia include: Excessive bleeding. Anemia can be caused by excessive bleeding inside or outside the body, including bleeding from the intestine or from periods in women. Poor nutrition. Long-lasting (chronic) kidney, thyroid, and liver disease. Bone marrow disorders. Cancer and treatments for cancer. HIV (human immunodeficiency virus) and AIDS (acquired immunodeficiency syndrome). Treatments for HIV and AIDS. Spleen problems. Blood disorders. Infections, medicines, and autoimmune disorders that destroy red blood cells. What are the signs or symptoms? Symptoms of this condition include: Minor weakness. Dizziness. Headache. Feeling heartbeats that are irregular or faster than normal (palpitations). Shortness of breath, especially with exercise. Paleness. Cold sensitivity. Indigestion. Nausea. Difficulty sleeping. Difficulty concentrating. Symptoms may occur suddenly or develop slowly. If your anemia is mild, you may not have symptoms. How is this diagnosed? This condition is diagnosed based on: Blood tests. Your medical history. A physical exam. Bone marrow biopsy. Your health care provider may also check your stool (feces) for blood and may do additional testing to look for the cause of your bleeding. You may also have other tests, including: Imaging tests, such as a CT scan or MRI. Endoscopy. Colonoscopy. How is this treated? Treatment for this condition depends on the cause. If you continue to lose a lot of blood, you may need to be treated at a hospital. Treatment may include: Taking supplements of iron, vitamin B12, or folic acid. Taking a hormone medicine (erythropoietin) that can help to stimulate red blood cell growth. Having a blood transfusion. This may be needed if you lose a lot of blood. Making changes to your diet. Having surgery to remove your spleen. Follow these instructions at home: Take imgo-jfd-mcvhqmm and prescription medicines only as told by your health care provider. Take supplements only as told by your health care provider. Follow any diet instructions that you were given. Keep all follow-up visits as told by your health care provider. This is important. Contact a health care provider if: You develop new bleeding anywhere in the body. Get help right away if: You are very weak. You are short of breath. You have pain in your abdomen or chest. You are dizzy or feel faint. You have trouble concentrating. You have bloody or black, tarry stools. You vomit repeatedly or you vomit up blood. Summary Anemia is a condition in which you do not have enough red blood cells or enough of a substance in your red blood cells that carries oxygen (hemoglobin). Symptoms may occur suddenly or develop slowly. If your anemia is mild, you may not have symptoms. This condition is diagnosed with blood tests as well as a medical history and physical exam. Other tests may be needed. Treatment for this condition depends on the cause of the anemia. This information is not intended to replace advice given to you by your health care provider. Make sure you discuss any questions you have with your health care provider. Document Released: 08/07/2005 Document Revised: 06/12/2018 Document Reviewed: 08/01/2017 [employer] Patient Education 2020 [employer] Total Hip Replacement, Posterior, Care After This sheet gives you information about how to care for yourself after your procedure. Your health care provider may also give you more specific instructions. If you have problems or questions, contact your health care provider. What can I expect after the procedure? After the procedure, it is common to have: Pain and swelling. A small amount of blood or clear fluid coming from your incision. Follow these instructions at home: Medicines Take vgjg-fjk-nkdfpzs and prescription medicines only as told by your health care provider. If you were prescribed a blood thinner (anticoagulant), take it as told by your health care provider. Activity Ask your health care provider what activities are safe for you. Do exercises as told by your health care provider or physical therapist. Rest often, but move around as much as you can tolerate. Movement helps you heal and helps to prevent stiffness, skin sores, and blood clots. Do not use your legs to support (bear) your body weight until your health care provider approves. Follow instructions about how much weight you may safely support on your affected leg (weight-bearing restrictions). Use crutches or a walker as told by your health care provider. Movement restrictions To help prevent hip dislocation, follow instructions about movement restrictions as told by your health care provider. For example: ? Do not cross your legs at the knees. To remind yourself about this, you may keep a pillow between your legs while lying in bed. ? Do not bend at the hip and waist or bend farther than 90 degrees of hip flexion. To avoid bending this far: ? Do not bring your knees higher than your hips. ? Do not seed cone picker something from the floor while sitting in a chair. ? Avoid sitting in low chairs. ? Use a raised toilet seat. ? When standing up from a seated position, keep the injured leg out in front of you. ? Avoid twisting at your waist and reaching across your body to the side of the affected leg. ? Avoid rotating your toes inward on the affected leg. When getting into a car: 1. Raise the seat as high as possible, move the seat as far back as it will go, and recline the upper part of the seat slightly. 2. Sit down into the seat with your injured leg extended out of the car. 3. Scoot back in the seat as you move the lower half of your body into the car. Try to avoid bumping your foot or leg as you bring it into the car. To make this motion smooth and easy on a cloth seat, try placing a plastic bag on the seat. Incision care Follow instructions from your health care provider about caring for your incision. Make sure you: ? Wash your hands with soap and water before you change your bandage (dressing). If soap and water are not available, use alcohol-based hand j2ee application developer. ? Change your dressing as told by your health care provider. ? Leave stitches (sutures), skin glue, or adhesive strips in place. These skin closures may need to stay in place for 2 weeks or longer. If adhesive strip edges start to loosen and curl up, you may trim the loose edges. Do not remove adhesive strips completely unless your health care provider tells you to do that. Do not take baths, swim, or use a hot tub until your health care provider approves. Check your incision area every day for signs of infection. Check for: ? More redness, swelling, or pain. ? More fluid or blood. ? Warmth. ? Pus or a bad smell. Managing pain, stiffness, and swelling If directed, put ice on the incision area. ? Put ice in a plastic bag. ? Place a towel between your skin and the bag. ? Leave the ice on for 20 minutes, 2 3 times a day. Move your toes often to avoid stiffness and to lessen swelling. Raise (elevate) your leg above the level of your heart while you are sitting or lying down. Driving Ask your health care provider when it is safe to drive. This may not be recommended for up to 6 weeks after surgery. Do not drive or use heavy machinery while taking prescription pain medicine. General instructions Wear compression stockings as told by your health care provider. These stockings help to prevent blood clots and reduce swelling in your legs. Do not use any products that contain nicotine or tobacco, such as cigarettes and e-cigarettes. These can delay bone healing. If you need help quitting, ask your health care provider. If you are taking prescription pain medicine, take actions to prevent or treat constipation. Your health care provider may recommend that you: ? Drink enough fluid to keep your urine pale yellow. ? Eat foods that are high in fiber, such as fresh fruits and vegetables, whole grains, and beans. ? Limit foods that are high in fat and processed sugars, such as fried or sweet foods. ? Take an anmk-xxz-fvisbuh or prescription medicine for constipation. Tell your health care provider if you plan to have dental work. Also: ? Tell your dentist about your joint replacement. ? Ask your health care provider if there are any special instructions you need to follow before having dental care and routine cleanings. Keep all follow-up visits as told by your health care provider. This is important. Contact a health care provider if: You have difficulty breathing. You have either of these at your incision site: ? Any symptoms of infection. ? Persistent bleeding. Your incision breaks open after sutures (stitches) or damián are removed. You have a fever. Get help right away if: You have more redness, swelling, or pain in the leg you had surgery on. You have pain or swelling in your calf or thigh. You have shortness of breath or chest pain. You have pain that is not relieved by pain medicine. Summary Do not use your legs to support your body weight until your health care provider approves. Use crutches or a walker as told. To help prevent hip dislocation, follow instructions about movement restrictions as told. If you were prescribed a blood thinner (anticoagulant), take it as told by your health care provider. Keep all follow-up visits as told by your health care provider. This is important. This information is not intended to replace advice given to you by your health care provider. Make sure you discuss any questions you have with your health care provider. Document Released: 01/17/2006 Document Revised: 11/08/2019 Document Reviewed: 03/25/2018 [email or web address] Patient Education 2020 [employer] [facility] Post-operative Instructions PLEASE FOLLOW [facility] POST-OP INSTRUCTIONS GIVEN WATCH FOR SIGNS OF INFECTION: call the office ([phone]) if experencing any of the following: (Usually appears 36-48 hours after surgery) Increased temperature (101 degrees Fahrenheit or higher) Redness or swelling Increased uncontrolled pain Foul odor or drainage Calf discomfort Significant swelling Or if having any chest pain, shortness of breath, or difficulty breathing or swallowing call the office or go the nearest Emergency Room. If you have any questions, please call your doctor at the number listed on your follow up instructions. Form: 338A ([id number]) R: 11/17 Additional Information VACCINATE! IT SAVES LIVES! Members of the community who have not yet received the COVID-19 vaccine and would like to receive it can visit one of [facility] vaccine clinics. There are many vaccine clinic locations within the [facility]. For locations and available times, please visit [email or web address].o hio.gov/. It is important to note that some COVID mobile vaccine clinics are held outdoors and may be canceled in rainy or stormy conditions. To learn more about pediatric vaccinations (ages 5-11), we invite you to visit the [facility] webpage. [email or web address]/p [email or web address] [email or web address] To learn more about the COVID-19 vaccine, we invite you to visit the CDC website for a list of frequently asked questions.https://www.cdc.gov/co ronavirus/2019-ncov/vaccines/faq .html [facility] Patient Portal Access Instructions: Stay connected with your healthcare team and access your personal medical information anytime with the [facility] Patient Portal. Please follow the directions below to create your [facility] account: 1.Access the email account you provided upon registration to the hospital/physician office.2.Look for an invitation email from [facility].3.Open the email and access the invitation link: Accept Invitation to [facility].4.Fill in the required borrego to create your account. To access your account, visit [email or web address]. Click the blue button labeled Access Patient Portal and then log in with the username and password that you created in the steps above. You will be able to view your test results, lab results, a summary of your visits, upcoming appointments and more. There is also a convenient messaging option where you can send secure messages to your provider. In addition, you will have the ability to download any documents or summaries to your computer and/or send the information securely to a physician. Remember that your healthcare information is confidential, so carefully consider who you will allow to register on the [facility] Patient Portal for access to your information. You can also access the [facility] Patient Portal on the [employer] jeanne. Simply click on Patient Portal and then log into your account. If you would like to receive a full copy of your medical records, please contact the [facility] Medical Records Department by calling [phone], Friday through Friday between 8 a.m. and 4:30 p.m. HOW TO SAFELY DISPOSE OF PRESCRIPTION MEDICATIONS Please use one of the following methods to safely dispose of your unused medications. 1.Use a drug disposal kit: the drug disposal pouch allows you to safely discard your old and unused drugs. Ask your nurse to give you one when you are discharged.2.Visit a local take-back location: Many local pharmacies and police departments have programs that collect old and unwanted prescription drugs. Call your local pharmacy or go to [email or web address] to find one close to you.3.Make use of household items: Use cat litter or old coffee grounds to dispose medications if other options are not available. Mix your drugs with these household products, seal them in an airtight container and throw it into the garbage. Call [facility]: [phone] to be sure your drugs can be disposed of in this way. Some medicines may require a different approach.4.Never flush your medications down the toilet. IF YOU HAVE BEEN PRESCRIBED AN OPIOID FOR PAIN If you have been prescribed an opioid (such as hydrocodone, oxycodone or morphine), it is critical to understand the possible side effects and risks of opioid pain medications. Even when taken as directed, opioids can have several side effects including: Tolerance, meaning you might need to take more of a medication for the same pain relief. Nausea, vomiting and/or constipation. Sleepiness, dizziness, dry mouth, confusion, depression or itching. Physical dependence, meaning you have withdrawal symptoms when a medication is stopped, can develop within a few days. KNOW YOUR RESPONSIBILITIES It is important to know exactly how much and how often to take the opioid pain medications you are prescribed. Never take opioids in higher amounts or more often than prescribed. Do not combine opioids with alcohol or other drugs that cause drowsiness, such as benzodiazepines, also known as benzos, including diazepam and alprazolam, muscle relaxants or sleep aids. Never sell or share prescription opioids. This is illegal. Store opioids in a secure place and out of reach of others (including children, family, friends and visitors). The last page of this document has been signed and retained as a CHART COPY. Signatures Patient Education Materials Anemia Total Hip Replacement, Posterior, Care After 5 - [facility] Post-op Instruction 02/2017 ([id number]) Medication Leaflets My discharge plan and instructions have been reviewed and explained to me and I,MARY RIBEIRO understand my current condition and have read and understand these discharge instructions. I have received a written copy of the plan/instructions. If I have questions, I am aware that I should contact my doctor. Patient/Refrigeration Service Technician Signature: Date/Time: Relationship to Patient: Witness Name/Signature: Date/Time: [facility] 06-13-2023 Note Date of Service June 13, 2023 Subjective The patient was sitting in bed upon examination. Patient denies any chest pain, shortness of breath, dizziness, lightheadedness, nausea or vomiting, or calf pain. No adverse overnight events. Pain has been controlled on medications. Patient states the pain is controlled however she does have some thigh soreness. Plan is for patient to go to [facility] transitional care unit today. Physical therapy has been recommending group home facility as she has a high fall risk. Patient's anemia has been stable. She has no significant complaints this morning. Objective Vitals and Measurements T: 36.5 C (Oral) TMIN: 36.5 C (Oral) TMAX: 36.7 C (Oral) HR: 84(Monitored) RR: 18 BP: 142/63 SpO2: 94% Intake and Output 7AM Yesterday to 7AM Today Intake and Output (Last 24 hours) Intake Supplement Intake 0.00 Output Stool Count 1.00 Urine Count 4.00 Total Summary Total Intake 0.00 Total Output 0.00 Fluid Balance 0.00 Physical Exam Vital signs stable, afebrile Left hip is soft and supple SCDs and LOY hose are in place bilaterally Patient is able to plantarflex and dorsiflex actively Sensation is intact to saphenous, sural, superficial and deep peroneal, and tibial distribution Dressing is clean dry and intact Negative signs and symptoms of DVT, negative Homans bilaterally Weight Dosing Weight: 56.3 kg (06/10/23) Dosing Weight: 56.3 kg (06/10/23) Medications Medications (20) Active Scheduled: (11) aspirin 81 mg EC 81 mg 1 tab(s), Oral, BIDM cholecalciferol 25 mcg tablet (Vit D3 1000 units) 25 mcg 1 tab(s), Oral, Daily docusate sodium 100 mg Capsule 100 mg 1 cap(s), Oral, BID docusate-senna (Senokot S) 50 mg-8.6 mg Tablet 2 tab(s), Oral, BID famotidine 20 mg tablet 20 mg 1 tab(s), Oral, qDay ferrous sulfate 325 mg Tablet 325 mg 1 tab(s), Oral, BID folic acid 1 mg tablet 1 mg 1 tab(s), Oral, qDay losartan 50 mg tablet 50 mg 1 tab(s), Oral, qDay magnesium hydroxide 8% Suspension 30 mL UD 30 mL, Oral, Daily multivitamin (Myadec) with minerals Therapeutic Multiple Vitamins with Minerals Tablet 1 tab(s), Oral, qDayM sertraline 50 mg tablet 100 mg 2 tab(s), Oral, Daily Continuous: (0) PRN: (9) acetaminophen 325 mg Tablet 650 mg 2 tab(s), Oral, q4h diphenhydramine 25 mg tablet 25 mg 1 tab(s), Oral, q6h diphenhyDRAMINE 50 mg/mL (1 mL) INJ 25 mg 0.5 mL, IV Push, q6h morphine 2 mg/mL 1 mL syringe 2 mg 1 mL, IV Push, q1h ondansetron 2 mg/ 1 mL 2 mL INJ 4 mg 2 mL, IV Push, q8h prochlorperazine 10 mg/2 mL vial 5 mg 1 mL, IV Push, q6h sodium biphosphate-sodium phosphate 19 gm-7 gm Enema 133 mL, Rectal, qDay tramadol 50 mg Tablet 50 mg 1 tab(s), Oral, q6hr tramadol 50 mg Tablet 100 mg 2 tab(s), Oral, q6h Lab Results 06/13 05:29 WBC: 6.8 Hgb: 8.5 L Hct: 25.0 L Platelet: 164 Neutrophil %: 69.9 06/12 05:18 WBC: 6.2 Hgb: 8.5 L Hct: 25.4 L Platelet: 160 Neutrophil %: 66.3 Glucose Level: 91 Sodium Level: 141 Potassium Level: 4.5 BUN: 40 H Creatinine Lvl (s): 1.36 H EKG No qualifying data available. Assessment/Plan Anemia HTN (hypertension) Osteoarthritis 1. Status post left direct anterior total hip arthroplasty postop day #3 2. Continue pain medications: Tylenol and tramadol as needed. We are avoiding nonsteroidal anti-inflammatories due to patient's chronic kidney disease. 3. DVT prophylaxis: Take 81 mg aspirin twice daily with food for 4 weeks postoperatively for DVT prophylaxis. Patient denies past history of DVT or pulmonary embolism 4. Physical therapy: Weightbearing as tolerated with walker. Physical therapy is also recommending group home facility as patient is high risk for fall. 5. H & H: 8.5/25.0, asymptomatic. Postoperative anemia from surgery without intraoperative complications. Preoperatively patient's hemoglobin/hematocrit was 12.2/36.5. There was estimated blood loss of 300 mL. Patient's vital signs are stable and she is currently asymptomatic. Patient is currently on ferrous sulfate and folic acid. Medicine did give her Venofer yesterday after iron studies. Patient did have low iron on lab work. We will repeat CBC and BMP tomorrow. Patient will require monitoring of this upon discharge. Also recommended she follow-up with the primary care physician for continued management upon discharge from the transitional care unit. 6. Encouraged incentive spirometry 7. Continue postoperative medical management per medicine: Patient does have chronic kidney disease. Awaiting results from her BMP. 8. Postoperative constipation: Patient does report having a bowel movement. She will use stool softener on an as-needed basis for any future constipation 9. Disposition: Due to patient's home situation in which she lives home alone and there is concerns from cognitive standpoint I do recommend patient will require group home facility upon discharge. She had a risk assessment prediction tool score of 3/12 which does recommend group home facility. Case management is currently on board for appropriate and safe discharge planning. Patient did require a 3 midnight stay. Physical therapy has been working with the patient and they are recommending group home facility upon discharge. Patient does have dizziness associated with quick change of position. At rest and once she is up walking she is not complaining of dizziness. She does report chronic dizziness with quick changes of movement. There is concern for potential fall risk if she would go home in which she lives by herself. At this time we will plan for discharge today to [facility] transitional care unit. Narcotic medication will be placed on chart. I do recommend patient follow-up with the primary care physician upon discharge from the transitional care unit for continued management of her anemia and chronic kidney disease. We will repeat lab work while at the transitional care unit to continue to monitor her hemoglobin. She is currently on ferrous sulfate and folic acid. She will follow-up per postoperative instructions. She will contact our office with any concerns or questions. I have reviewed the [place] Automated Rx Reporting System (OARRS) report for this patient for refill pattern and other prescriber involvement as part of the appropriate surveillance for the provision of acute and chronic controlled medications. The report was requested and reviewed on the date of this entry, and was considered in the prescribing process This dictation was created using voice recognition software. Phonetic and/or grammatical errors may exist. Stage 3a chronic kidney disease (CKD) Digitally Signed by OMERO HUBBARD PA-C on 06/13/2023 06:37 AM [facility] 06-13-2023 Discharge summary Date of Service June 13, 2023 Discharge Diagnosis Anemia (D64.9 - ICD-10-CM) Ordered: folic acid 1 mg oral tablet; Dose : 1 mg = 1 tab(s), Oral, qDay, 0 Refill(s), Anemia ferrous sulfate 325 mg (65 mg elemental iron) oral tablet; Dose : 325 mg = 1 tab(s), Oral, BID, 0 Refill(s), Anemia Transfer of Care Labwork; CBC and BMP, Anemia and CKD, follow-up within: 3-5 days, Results Notify to: PRIYANKA ANGEL MD, Will require follow up with PCP upon discharge from [facility], 06/13/23 6:50:00 EST HTN (hypertension) (I10 - ICD-10-CM) Osteoarthritis (M19.90 - ICD-10-CM) S/P total left hip arthroplasty (Z96.642 - ICD-10-CM) Ordered: traMADol 50 mg oral tablet; See Instructions, PRN as needed for pain, 1-2 tab(s) Oral q6h, # 20 tab(s), 0 Refill(s), 06/20/23 6:41:00 EST, S/P total left hip arthroplasty, 56.3 Transfer of Care Wound Care; Dressing Type: *Other (specify in special instructions), Hip, left, Remove Mepilex dressing on June 16, 2023. Okay to shower and get this dressing wet. Once dressing removed only use gentle soap and water over incision for 6 weeks postop, ... Transfer of Care OT; Reason for therapy: Post-op left total hip arthroplasty, Direct anterior left total hip arthroplasty, 06/13/23 6:50:00 EST Transfer of Care PT; Your therapy ordered is: Physical therapy, Reason for therapy: Postoperative left total hip arthroplasty, Direct anterior left total hip arthroplasty precautions. Evaluate and treat, 06/13/23 6:50:00 EST Stage 3a chronic kidney disease (CKD) (N18.31 - ICD-10-CM) Ordered: Transfer of Care Labwork; CBC and BMP, Anemia and CKD, follow-up within: 3-5 days, Results Notify to: PRIYANKA ANGEL MD, Will require follow up with PCP upon discharge from [facility], 06/13/23 6:50:00 EST Additional Orders: Other status: BMP,06/13/23 5:00:00 EST, Next AM Draw (one day only), Blood, Once, Stop date 06/13/23 5:00:00 EST(Complete) Other status: CBC,06/13/23 5:00:00 EST, Next AM Draw (one day only), Blood, Once, Stop date 06/13/23 5:00:00 EST(Complete) Ordered: Pepcid 20 mg oral tablet,Dose : 20 mg = 1 tab(s), Oral, qDay, 0 Refill(s) Ordered: Transfer of Care Activity,Activity As Tolerated, 06/13/23 6:50:00 EST Ordered: Transfer of Care Code Status,Full Code, Constant Order Ordered: Transfer of Care Diet,Type of Diet: Regular Diet, 06/13/23 6:50:00 EST Ordered: Transfer of Care Orders Electronically Signed By,06/13/23 6:50:00 EST, TELLO HENSLEY MD Ordered: Transfer of Care Physician Follow-up,Follow-up with: VINITA QUEVEDO PA-C, June 23, 2023 @ 1:45 pm, 06/13/23 6:50:00 EST Ordered: Transfer of Care Prognosis,Good, Patient Aware: Yes Ordered: Transfer of Care Rehab Potential,Rehab potential good, 06/13/23 6:50:35 EST Ordered: acetaminophen 500 mg oral tablet,Dose : 1,000 mg = 2 tab(s), Oral, TID, PRN as needed for pain, not to exceed 3000 mg/day, # 100 tab(s), 0 Refill(s), 07/04/23 6:42:00 EST Ordered: aspirin,Dose : 81 mg = 1 tab(s), Oral, BIDM, Take 81 mg aspirin twice daily with food for 4 weeks postoperatively for DVT prophylaxis., 0 Refill(s) End of Orders Hospital Course Patient is a 88-year-old female who has had ongoing left hip pain for over 2 years. Her pain was constant and significantly affecting her activities of daily living. It was affecting her mobility. She was treated in pain management. She attempted previous intra-articular hip injection with no relief. After failing conservative measures, the patient opted to proceed with a left direct anterior total hip arthroplasty. The patient underwent the above stated procedure on June 10, 2023. Patient did receive perioperative antibiotics. Intraoperatively was uneventful. For details, please see dictated operative note. The patient was placed in thigh-high teds, bilateral SCDs, remained stable in recovery. Patient was admitted to the second floor at [facility]. The patient's pain was managed with the use of IV and p.o. pain medications. Patient participated in physical therapy. Physical therapy was recommending patient for group home facility as she is a high fall risk. She also has a Risk Asessment Prediction Tool (RAPT) score of 3/12. This does predict patient going to group home facility upon discharge. Patient also has been dealing with chronic kidney disease which has been stable while in the hospital. Patient did have drop in her hemoglobin with postoperative anemia in which she was treated in the hospital with Venofer and placed on ferrous sulfate and folic acid. She will continue with this upon discharge while at the transitional care unit with repeat lab work. I do recommend follow-up with the primary care physician once patient is discharged from the [facility] transitional care unit. Mepilex dressing can be removed on June 16, 2023. She can shower and get this dressing wet. Upon removal she is to only place gentle soap and water on the incision. Do not place any ointments over the incision for 6 weeks postoperatively. Patient was discharged on postoperative day # 3 to [facility] transitional care unit. Patient was given prescriptions for: Extra strength Tylenol 500 mg 2 tablets 3 times daily for primary pain control. Tramadol 50 mg 1-2 tablets every 6 hours for breakthrough pain as needed. Patient will continue with aspirin 81 mg twice daily for 4 weeks postoperatively for DVT prophylaxis. Patient denies past history of DVT or pulmonary embolism. Patient is already had a bowel movement and will only use the stool softener on an as-needed basis if she develops constipation. Continue with the LOY hose for 2 weeks postoperatively. Patient will follow-up with [facility] per postop instructions. She has scheduled appointment with Vinita Quevedo PA-C on June 23, 2023 at 1:45 PM. Allergies Advil PM penicillin Procedures Direct anterior left total hip arthroplasty Consults Consult to Physician - Ordered -- 06/10/23 13:57:00 VIVIAN DIAMOND RACHEL L APRN-SAW, Routine, ok to see tomorrow, Constant order, Medical physician. Objective Vitals and Measurements T: 36.5 C (Oral) HR: 84(Monitored) RR: 18 BP: 142/63 SpO2: 94% Weight Dosing Weight: 56.3 kg (06/10/23) Dosing Weight: 56.3 kg (06/10/23) Vital signs stable, afebrile SCDs and LOY hose are in place bilaterally Left hip is soft and supple Patient is able to plantarflex and dorsiflex actively Sensation is intact to saphenous, sural, superficial and deep peroneal, and tibial distribution Dressing is clean dry and intact Negative signs and symptoms of DVT, negative Homans bilaterally Code Status Code Status - Ordered -- 06/10/23 12:21:00 EST, Full Code, Constant Order Admission Date June 10, 2023 Discharge Date June 13, 2023 Medications New Prescription acetaminophen (acetaminophen 500 mg oral tablet)2 tab(s) by mouth three (3) times a day as needed as needed for pain. not to exceed 3000 mg/day. Refills: 0. [id number] Milligram by mouth twice daily with meals for 30 Days. Take 81 mg aspirin twice daily with food for 4 weeks postoperatively for DVT prophylaxis.. famotidine (Pepcid 20 mg oral tablet)1 tab(s) by mouth once a day for 30 Days. folic acid (folic acid 1 mg oral tablet)1 tab(s) by mouth once a day. traMADol (traMADol 50 mg oral tablet)1-2 tab(s) Oral q6h; as needed as needed for pain. Refills: 0. Unchanged cholecalciferol (Vitamin D3)25 Microgram by mouth every day. cyanocobalamin (Vitamin B12 50 mcg oral tablet)1 tab(s) by mouth once a day. ferrous sulfate (ferrous sulfate 325 mg (65 mg elemental iron) oral tablet)1 tab(s) by mouth two (2) times a day. sertraline (sertraline 100 mg oral tablet)1 tab(s) by mouth every day. valsartan (valsartan 80 mg oral tablet)1 tab(s) by mouth once a day. Follow Up Follow Up with VINITA QUEVEDO PA-C, Orthopedic When 06/23/2023 01:45 PM EST Why: This is your post-op appointment. Follow-up as scheduled. Where: [address] [place] [address] [address] [facility], [place] [address]- [phone] Follow Up Appointments Transfer of Care OT - Ordered -- Reason for therapy: Post-op left total hip arthroplasty, Direct anterior left total hip arthroplasty, 06/13/23 6:50:00 EST Transfer of Care PT - Ordered -- Your therapy ordered is: Physical therapy, Reason for therapy: Postoperative left total hip arthroplasty, Direct anterior left total hip arthroplasty precautions. Evaluate and treat, 06/13/23 6:50:00 EST Follow Up Labs/Studies Discharge Labs Transfer of Care Labwork - Ordered -- CBC and BMP, Anemia and CKD, follow-up within: 3-5 days, Results Notify to: PRIYANKA ANGEL MD, Will require follow up with PCP upon discharge from [facility], 06/13/23 6:50:00 EST Discharge Studies No Follow-up Studies Discharge Diet Transfer of Care Diet - Ordered -- Type of Diet: Regular Diet, 06/13/23 6:50:00 EST Discharge Activity Transfer of Care Activity - Ordered -- Activity As Tolerated, 06/13/23 6:50:00 EST Condition on Discharge Stable Readmission Risk/Palliative Score LACE Score: 5 (06/10/23 13:51:00) Discharge Disposition Stable Digitally Signed by OMERO HUBBARD PA-C on 06/13/2023 07:01 AM [facility] 06-13-2023 Note Date of Service June 13, 2023 Subjective The patient was sitting in bed upon examination. Patient denies any chest pain, shortness of breath, dizziness, lightheadedness, nausea or vomiting, or calf pain. No adverse overnight events. Pain has been controlled on medications. Patient states the pain is controlled however she does have some thigh soreness. Plan is for patient to go to [facility] transitional care unit today. Physical therapy has been recommending group home facility as she has a high fall risk. Patient's anemia has been stable. She has no significant complaints this morning. Objective Vitals and Measurements T: 36.5 C (Oral) TMIN: 36.5 C (Oral) TMAX: 36.7 C (Oral) HR: 84(Monitored) RR: 18 BP: 142/63 SpO2: 94% Intake and Output 7AM Yesterday to 7AM Today Intake and Output (Last 24 hours) Intake Supplement Intake 0.00 Output Stool Count 1.00 Urine Count 4.00 Total Summary Total Intake 0.00 Total Output 0.00 Fluid Balance 0.00 Physical Exam Vital signs stable, afebrile Left hip is soft and supple SCDs and LOY hose are in place bilaterally Patient is able to plantarflex and dorsiflex actively Sensation is intact to saphenous, sural, superficial and deep peroneal, and tibial distribution Dressing is clean dry and intact Negative signs and symptoms of DVT, negative Homans bilaterally Weight Dosing Weight: 56.3 kg (06/10/23) Dosing Weight: 56.3 kg (06/10/23) Medications Medications (20) Active Scheduled: (11) aspirin 81 mg EC 81 mg 1 tab(s), Oral, BIDM cholecalciferol 25 mcg tablet (Vit D3 1000 units) 25 mcg 1 tab(s), Oral, Daily docusate sodium 100 mg Capsule 100 mg 1 cap(s), Oral, BID docusate-senna (Senokot S) 50 mg-8.6 mg Tablet 2 tab(s), Oral, BID famotidine 20 mg tablet 20 mg 1 tab(s), Oral, qDay ferrous sulfate 325 mg Tablet 325 mg 1 tab(s), Oral, BID folic acid 1 mg tablet 1 mg 1 tab(s), Oral, qDay losartan 50 mg tablet 50 mg 1 tab(s), Oral, qDay magnesium hydroxide 8% Suspension 30 mL UD 30 mL, Oral, Daily multivitamin (Myadec) with minerals Therapeutic Multiple Vitamins with Minerals Tablet 1 tab(s), Oral, qDayM sertraline 50 mg tablet 100 mg 2 tab(s), Oral, Daily Continuous: (0) PRN: (9) acetaminophen 325 mg Tablet 650 mg 2 tab(s), Oral, q4h diphenhydramine 25 mg tablet 25 mg 1 tab(s), Oral, q6h diphenhyDRAMINE 50 mg/mL (1 mL) INJ 25 mg 0.5 mL, IV Push, q6h morphine 2 mg/mL 1 mL syringe 2 mg 1 mL, IV Push, q1h ondansetron 2 mg/ 1 mL 2 mL INJ 4 mg 2 mL, IV Push, q8h prochlorperazine 10 mg/2 mL vial 5 mg 1 mL, IV Push, q6h sodium biphosphate-sodium phosphate 19 gm-7 gm Enema 133 mL, Rectal, qDay tramadol 50 mg Tablet 50 mg 1 tab(s), Oral, q6hr tramadol 50 mg Tablet 100 mg 2 tab(s), Oral, q6h Lab Results 06/13 05:29 WBC: 6.8 Hgb: 8.5 L Hct: 25.0 L Platelet: 164 Neutrophil %: 69.9 06/12 05:18 WBC: 6.2 Hgb: 8.5 L Hct: 25.4 L Platelet: 160 Neutrophil %: 66.3 Glucose Level: 91 Sodium Level: 141 Potassium Level: 4.5 BUN: 40 H Creatinine Lvl (s): 1.36 H EKG No qualifying data available. Assessment/Plan Anemia HTN (hypertension) Osteoarthritis 1. Status post left direct anterior total hip arthroplasty postop day #3 2. Continue pain medications: Tylenol and tramadol as needed. We are avoiding nonsteroidal anti-inflammatories due to patient's chronic kidney disease. 3. DVT prophylaxis: Take 81 mg aspirin twice daily with food for 4 weeks postoperatively for DVT prophylaxis. Patient denies past history of DVT or pulmonary embolism 4. Physical therapy: Weightbearing as tolerated with walker. Physical therapy is also recommending group home facility as patient is high risk for fall. 5. H & H: 8.5/25.0, asymptomatic. Postoperative anemia from surgery without intraoperative complications. Preoperatively patient's hemoglobin/hematocrit was 12.2/36.5. There was estimated blood loss of 300 mL. Patient's vital signs are stable and she is currently asymptomatic. Patient is currently on ferrous sulfate and folic acid. Medicine did give her Venofer yesterday after iron studies. Patient did have low iron on lab work. We will repeat CBC and BMP tomorrow. Patient will require monitoring of this upon discharge. Also recommended she follow-up with the primary care physician for continued management upon discharge from the transitional care unit. 6. Encouraged incentive spirometry 7. Continue postoperative medical management per medicine: Patient does have chronic kidney disease. Awaiting results from her BMP. 8. Postoperative constipation: Patient does report having a bowel movement. She will use stool softener on an as-needed basis for any future constipation 9. Disposition: Due to patient's home situation in which she lives home alone and there is concerns from cognitive standpoint I do recommend patient will require group home facility upon discharge. She had a risk assessment prediction tool score of 3/12 which does recommend group home facility. Case management is currently on board for appropriate and safe discharge planning. Patient did require a 3 midnight stay. Physical therapy has been working with the patient and they are recommending group home facility upon discharge. Patient does have dizziness associated with quick change of position. At rest and once she is up walking she is not complaining of dizziness. She does report chronic dizziness with quick changes of movement. There is concern for potential fall risk if she would go home in which she lives by herself. At this time we will plan for discharge today to [facility] transitional care unit. Narcotic medication will be placed on chart. I do recommend patient follow-up with the primary care physician upon discharge from the transitional care unit for continued management of her anemia and chronic kidney disease. We will repeat lab work while at the transitional care unit to continue to monitor her hemoglobin. She is currently on ferrous sulfate and folic acid. She will follow-up per postoperative instructions. She will contact our office with any concerns or questions. I have reviewed the [place] Automated Rx Reporting System (OARRS) report for this patient for refill pattern and other prescriber involvement as part of the appropriate surveillance for the provision of acute and chronic controlled medications. The report was requested and reviewed on the date of this entry, and was considered in the prescribing process This dictation was created using voice recognition software. Phonetic and/or grammatical errors may exist. Stage 3a chronic kidney disease (CKD) Digitally Signed by OMERO HUBBARD PA-C on 06/13/2023 06:37 AM [facility] 06-12-2023 Note Date of Service 06/12/2023 Chief Complaint left hip pain Subjective Patient seen and evaluated while resting in recliner. She states that she is doing fine other than some pain in her left hip. Patient updated that her labs are stable from yesterday. Her hemoglobin dropped just slightly to 8.5 from 8.6 yesterday. She denies any known bleeding. Her creatinine is slightly better this morning is close to baseline. Primary team already ordered labs for tomorrow to recheck CBC and BMP. Patient denies any fever, chills, cough, shortness of breath, chest pain, abdominal pain, nausea or dysuria. We will continue to follow along daily while patient is admitted to [facility]. All questions answered. Objective Vitals and Measurements T: 36.7 C (Oral) TMIN: 36.2 C (Oral) TMAX: 36.7 C (Oral) HR: 73(Apical) RR: 20 BP: 142/67 SpO2: 97% Intake and Output 7AM Yesterday to 7AM Today Intake and Output (Last 24 hours) Intake Oral Intake 200.00 Supplement Intake 0.00 Output Urine Voided 2.00 Urine Count 3.00 Total Summary Total Intake 200.00 Total Output 2.00 Fluid Balance 198.00 Physical Exam General: No acute distress. Patient is alert, chronically ill-appearing, [place]. Skin: No rash. Skin is warm, dry and intact. HEENT: Head is normocephalic, atraumatic. Pupils are equal, round and reactive. Neck: Supple. No lymphadenopathy, thyromegaly. Lungs: Bilaterally clear but diminished without crepitation or wheeze. Unlabored. Heart: Heart is regular rhythm, S1, S2. No murmurs, gallops or rubs. Abdomen: Abdomen is soft, nontender. Bowels sounds present in all quadrants. Extremities: No clubbing, cyanosis; trace of lower extremity edema noted bilaterally. Peripheral pulses palpable. No calf tenderness. Left hip surgical dressing is dry and intact. Neurological: Patient is awake and alert to person, place and time, forgetful. Following simple commands, moving all extremities. Weight Dosing Weight: 56.3 kg (06/10/23) Dosing Weight: 56.3 kg (06/10/23) Medications Medications (21) Active Scheduled: (12) acetaminophen 500 mg Tablet 1,000 mg 2 tab(s), Oral, q6h aspirin 81 mg EC 81 mg 1 tab(s), Oral, BIDM cholecalciferol 25 mcg tablet (Vit D3 1000 units) 25 mcg 1 tab(s), Oral, Daily docusate sodium 100 mg Capsule 100 mg 1 cap(s), Oral, BID docusate-senna (Senokot S) 50 mg-8.6 mg Tablet 2 tab(s), Oral, BID famotidine 20 mg tablet 20 mg 1 tab(s), Oral, qDay ferrous sulfate 325 mg Tablet 325 mg 1 tab(s), Oral, BID folic acid 1 mg tablet 1 mg 1 tab(s), Oral, qDay losartan 50 mg tablet 50 mg 1 tab(s), Oral, qDay magnesium hydroxide 8% Suspension 30 mL UD 30 mL, Oral, Daily multivitamin (Myadec) with minerals Therapeutic Multiple Vitamins with Minerals Tablet 1 tab(s), Oral, qDayM sertraline 50 mg tablet 100 mg 2 tab(s), Oral, Daily Continuous: (0) PRN: (9) acetaminophen 325 mg Tablet 650 mg 2 tab(s), Oral, q4h diphenhydramine 25 mg tablet 25 mg 1 tab(s), Oral, q6h diphenhyDRAMINE 50 mg/mL (1 mL) INJ 25 mg 0.5 mL, IV Push, q6h morphine 2 mg/mL 1 mL syringe 2 mg 1 mL, IV Push, q1h ondansetron 2 mg/ 1 mL 2 mL INJ 4 mg 2 mL, IV Push, q8h prochlorperazine 10 mg/2 mL vial 5 mg 1 mL, IV Push, q6h sodium biphosphate-sodium phosphate 19 gm-7 gm Enema 133 mL, Rectal, qDay tramadol 50 mg Tablet 50 mg 1 tab(s), Oral, q6hr tramadol 50 mg Tablet 100 mg 2 tab(s), Oral, q6h Lab Results 06/12 05:18 WBC: 6.2 Hgb: 8.5 L Hct: 25.4 L Platelet: 160 Neutrophil %: 66.3 Glucose Level: 91 Sodium Level: 141 Potassium Level: 4.5 BUN: 40 H Creatinine Lvl (s): 1.36 H 06/11 05:31 WBC: 9.8 Hgb: 8.6 L Hct: 26.0 L Platelet: 172 Neutrophil %: 72.9 Glucose Level: 95 Sodium Level: 139 Potassium Level: 4.6 BUN: 39 H Creatinine Lvl (s): 1.42 H Imaging Results and Diagnostics XR Hip Left w/Pelvis 4 Views Result Date: June 10, 2023 Verified By: MARLENY ROLAND MD CLINICAL STATEMENT: IMPRESSION: Postsurgical changes of the left hip status post hip replacement. EKG No qualifying data available. Assessment/Plan 1. Osteoarthritis Chronic, s/p left total hip arthroplasty. POD # 2. Management per primary team. Pain is well-controlled. Plan is for patient to go to [facility] tomorrow. Recheck CBC and BMP in am. 2. Anemia Acute, new onset. Preoperatively, hemoglobin/hematocrit was 12.2/36.5. Stable since yesterday at 8.5/25.4. Venofer 300 mg IV x 1 given yesterday. Continue ferrous sulfate 325 mg PO BID. Repeat CBC in am. 3. Stage 3a chronic kidney disease (CKD) Chronic, slightly above baseline. Patient given 500 cc NS bolus yesterday. Last GFR in system was 38 on 05/12/2023. GFR improved to 37 this am. Repeat BMP in am. 4. HTN (hypertension) Chronic, controlled. Continue home antihypertensives. SBP goal of 140 or less. DVT prophylaxis with aspirin 81 mg PO BID. Code status: Full Code. Labs, diagnostic test and progress notes reviewed as noted in HPI. Plan of care discussed with patient. All questions answered. Patient verbalizes understanding and is agreeable with plan of care. This case was discussed with collaborating physician, Dr. Kathryn Ingram. Time Spent 35 minutes spent reviewing past diagnostic tests, reviewing lab results, vital sign trends, medical history, reviewing medications and ordering home medications, examining patient, discussing plan of care with nursing, health and social care teacher and therapy, collaborating with physician, and documenting in chart. Digitally Signed by TRAVON MAHMOOD on 06/12/2023 11:20 AM [facility] 06-12-2023 Note Date of Service June 12, 2023 Subjective The patient was sitting in bed upon examination. Patient denies any chest pain, shortness of breath, dizziness, lightheadedness, nausea or vomiting, or calf pain. No adverse overnight events. Pain has been controlled on medications. Patient states the thigh pain has improved today. Medicine ordered iron studies yesterday which did reveal low iron. Patient was given Venofer yesterday. Her hemoglobin has been stable today. She denies any dizziness or lightheadedness rest or once she is up walking or going to the bath. However she does have some chronic dizziness with change in position or quick movements. Her vitals are stable. Objective Vitals and Measurements T: 36.2 C (Oral) TMIN: 36.2 C (Oral) TMAX: 36.7 C (Oral) HR: 77(Apical) RR: 20 BP: 136/61 SpO2: 95% Intake and Output 7AM Yesterday to 7AM Today Intake and Output (Last 24 hours) Intake Oral Intake 200.00 Supplement Intake 120.00 Output Urine Voided 2.00 Urine Count 4.00 Total Summary Total Intake 320.00 Total Output 2.00 Fluid Balance 318.00 Physical Exam Vital signs stable, afebrile. No tachycardia. Patient denies dizziness or lightheadedness at rest Left thigh is soft and supple SCDs and LOY hose are in place bilaterally Patient is able to plantarflex and dorsiflex actively Sensation is intact to saphenous, sural, superficial and deep peroneal, and tibial distribution Dressing is clean dry and intact Negative signs and symptoms of DVT, negative Homans bilaterally Weight Dosing Weight: 56.3 kg (06/10/23) Dosing Weight: 56.3 kg (06/10/23) Medications Medications (21) Active Scheduled: (12) acetaminophen 500 mg Tablet 1,000 mg 2 tab(s), Oral, q6h aspirin 81 mg EC 81 mg 1 tab(s), Oral, BIDM cholecalciferol 25 mcg tablet (Vit D3 1000 units) 25 mcg 1 tab(s), Oral, Daily docusate sodium 100 mg Capsule 100 mg 1 cap(s), Oral, BID docusate-senna (Senokot S) 50 mg-8.6 mg Tablet 2 tab(s), Oral, BID famotidine 20 mg tablet 20 mg 1 tab(s), Oral, qDay ferrous sulfate 325 mg Tablet 325 mg 1 tab(s), Oral, BID folic acid 1 mg tablet 1 mg 1 tab(s), Oral, qDay losartan 50 mg tablet 50 mg 1 tab(s), Oral, qDay magnesium hydroxide 8% Suspension 30 mL UD 30 mL, Oral, Daily multivitamin (Myadec) with minerals Therapeutic Multiple Vitamins with Minerals Tablet 1 tab(s), Oral, qDayM sertraline 50 mg tablet 100 mg 2 tab(s), Oral, Daily Continuous: (0) PRN: (9) acetaminophen 325 mg Tablet 650 mg 2 tab(s), Oral, q4h diphenhydramine 25 mg tablet 25 mg 1 tab(s), Oral, q6h diphenhyDRAMINE 50 mg/mL (1 mL) INJ 25 mg 0.5 mL, IV Push, q6h morphine 2 mg/mL 1 mL syringe 2 mg 1 mL, IV Push, q1h ondansetron 2 mg/ 1 mL 2 mL INJ 4 mg 2 mL, IV Push, q8h prochlorperazine 10 mg/2 mL vial 5 mg 1 mL, IV Push, q6h sodium biphosphate-sodium phosphate 19 gm-7 gm Enema 133 mL, Rectal, qDay tramadol 50 mg Tablet 50 mg 1 tab(s), Oral, q6hr tramadol 50 mg Tablet 100 mg 2 tab(s), Oral, q6h Lab Results 06/12 05:18 WBC: 6.2 Hgb: 8.5 L Hct: 25.4 L Platelet: 160 Neutrophil %: 66.3 Glucose Level: 91 Sodium Level: 141 Potassium Level: 4.5 BUN: 40 H Creatinine Lvl (s): 1.36 H 06/11 05:31 WBC: 9.8 Hgb: 8.6 L Hct: 26.0 L Platelet: 172 Neutrophil %: 72.9 Glucose Level: 95 Sodium Level: 139 Potassium Level: 4.6 BUN: 39 H Creatinine Lvl (s): 1.42 H EKG No qualifying data available. Assessment/Plan Anemia Ordered: ferrous sulfate, Start: 06/11/23 12:00:00 EST, Dose = 325 mg, = 1 tab(s), Oral, BID, 0, 06/11/23 7:20:00 EST folic acid, Start: 06/11/23 9:00:00 EST, Dose = 1 mg, = 1 tab(s), Oral, qDay, 06/11/23 7:21:00 EST HTN (hypertension) Osteoarthritis S/P hip replacement 1. Status post left direct anterior total hip arthroplasty postop day #2 2. Continue pain medications: Tylenol and tramadol as needed. We are avoiding nonsteroidal anti-inflammatories due to patient's chronic kidney disease. 3. DVT prophylaxis: Take 81 mg aspirin twice daily with food for 4 weeks postoperatively for DVT prophylaxis. Patient denies past history of DVT or pulmonary embolism 4. Physical therapy: Weightbearing as tolerated with walker. Physical therapy is also recommending group home facility as patient is high risk for fall. 5. H & H: 8.5/25.4, asymptomatic. Postoperative anemia from surgery without intraoperative complications. Preoperatively patient's hemoglobin/hematocrit was 12.2/36.5. There was estimated blood loss of 300 mL. Patient's vital signs are stable and she is currently asymptomatic. Patient is currently on ferrous sulfate and folic acid. Medicine did give her Venofer yesterday after iron studies. Patient did have low iron on lab work. We will repeat CBC and BMP tomorrow. Patient will require monitoring of this upon discharge. Also recommended she follow-up with the primary care physician for continued management upon discharge. 6. Encouraged incentive spirometry 7. Continue postoperative medical management per medicine: Patient does have chronic kidney disease and BMP will be repeated tomorrow. 8. Postoperative constipation: Discussed with the patient to continue stool softener until first bowel movement. After first bowel movement patient can then take as needed. They were also instructed that if they are not able to have a bowel movement within 3 days they are to contact our office for change of medication. Patient voiced understanding. 9. Disposition: Due to patient's home situation in which she lives home alone and there is concerns from cognitive standpoint I do recommend patient will require group home facility upon discharge. She had a risk assessment prediction tool score of 3/12 which does recommend group home facility. Case management is currently on board. Patient will require a 3 midnight stay. Physical therapy has been working with the patient and they are recommending group home facility upon discharge. Patient does have dizziness associated with quick change of position. At rest and once she is up walking she is not complaining of dizziness. She does report chronic dizziness with quick changes of movement. There is concern for potential fall risk if she would go home in which she lives by herself. Plan is for patient to go to [facility] transitional care unit once approval has been obtained. I have reviewed the [place] Automated Rx Reporting System (OARRS) report for this patient for refill pattern and other prescriber involvement as part of the appropriate surveillance for the provision of acute and chronic controlled medications. The report was requested and reviewed on the date of this entry, and was considered in the prescribing process This dictation was created using voice recognition software. Phonetic and/or grammatical errors may exist. Stage 3a chronic kidney disease (CKD) Orders: traMADol, Start: 06/11/23 7:16:00 EST, Dose = 100 mg, = 2 tab(s), Oral, q6h, PRN, Pain, scale 7-10, 06/11/23 7:16:00 EST traMADol, Start: 06/11/23 7:16:00 EST, Dose = 50 mg, = 1 tab(s), Oral, q6hr, PRN, Pain, scale 4-6, 06/11/23 7:16:00 EST Basic Metabolic Panel Complete Blood Count Digitally Signed by OMERO HUBBARD PA-C on 06/12/2023 06:32 AM [facility] 06-11-2023 Note Date of Service June 11, 2023 Subjective The patient was sitting in bed upon examination. Patient denies any chest pain, shortness of breath, dizziness, lightheadedness, nausea or vomiting, or calf pain. No adverse overnight events. Pain has been controlled on medications. Patient is complaining of thigh pain today. She has had drop in hemoglobin postoperatively but currently is asymptomatic. Her vitals are stable. Patient lives home alone and there are some concerns from a cognitive standpoint. She also had a risk assessment prediction tool score of 3/12. Plan is for patient to go to [facility] transitional care. Objective Vitals and Measurements T: 36.2 C (Oral) TMIN: 35.6 C (Axillary) TMAX: 36.5 C (Temporal Artery) HR: 82(Apical) RR: 18 BP: 114/74 SpO2: 96% HT: 170.2 cm WT: 56.3 kg BMI: 19.44 Intake and Output 7AM Yesterday to 7AM Today Intake and Output (Last 24 hours) Intake Administration Information 1827.25 Supplement Intake 480.00 Output Intra-Op EBL 300.00 Urine Count 2.00 Total Summary Total Intake 2307.25 Total Output 300.00 Fluid Balance Physical Exam Vital signs stable, afebrile. Patient does not remember myself from previous visit. She is alert and oriented x 3. Left thigh is soft and supple Patient is able to plantarflex and dorsiflex actively Sensation is intact to saphenous, sural, superficial and deep peroneal, and tibial distribution Dressing is clean dry and intact Negative signs and symptoms of DVT, negative Homans bilaterally Weight Dosing Weight: 56.3 kg (06/10/23) Dosing Weight: 56.3 kg (06/10/23) Medications Medications (22) Active Scheduled: (12) acetaminophen 500 mg Tablet 1,000 mg 2 tab(s), Oral, q6h aspirin 81 mg EC 81 mg 1 tab(s), Oral, BIDM bisacodyl 5 mg EC tablet 10 mg 2 tab(s), Oral, Once cholecalciferol 25 mcg tablet (Vit D3 1000 units) 25 mcg 1 tab(s), Oral, Daily docusate sodium 100 mg Capsule 100 mg 1 cap(s), Oral, BID docusate-senna (Senokot S) 50 mg-8.6 mg Tablet 2 tab(s), Oral, BID famotidine 20 mg tablet 20 mg 1 tab(s), Oral, qDay losartan 50 mg tablet 50 mg 1 tab(s), Oral, qDay magnesium hydroxide 8% Suspension 30 mL UD 30 mL, Oral, Daily multivitamin (Myadec) with minerals Therapeutic Multiple Vitamins with Minerals Tablet 1 tab(s), Oral, qDayM ondansetron 2 mg/ 1 mL 2 mL INJ 4 mg 2 mL, IV Push, q8h sertraline 50 mg tablet 100 mg 2 tab(s), Oral, Daily Continuous: (0) PRN: (10) acetaminophen 325 mg Tablet 650 mg 2 tab(s), Oral, q4h diphenhydramine 25 mg tablet 25 mg 1 tab(s), Oral, q6h diphenhyDRAMINE 50 mg/mL (1 mL) INJ 25 mg 0.5 mL, IV Push, q6h ketorolac 30 mg/1 mL (2mL) vial 7.5 mg 0.25 mL, IV Push, q6h morphine 2 mg/mL 1 mL syringe 2 mg 1 mL, IV Push, q1h ondansetron 2 mg/ 1 mL 2 mL INJ 4 mg 2 mL, IV Push, q8h oxycodone 5 mg tablet (immediate release) 5 mg 1 tab(s), Oral, q4h oxycodone 5 mg tablet (immediate release) 10 mg 2 tab(s), Oral, q4h prochlorperazine 10 mg/2 mL vial 5 mg 1 mL, IV Push, q6h sodium biphosphate-sodium phosphate 19 gm-7 gm Enema 133 mL, Rectal, qDay Lab Results 06/11 05:31 WBC: 9.8 Hgb: 8.6 L Hct: 26.0 L Platelet: 172 Neutrophil %: 72.9 Glucose Level: 95 Sodium Level: 139 Potassium Level: 4.6 BUN: 39 H Creatinine Lvl (s): 1.42 H EKG No qualifying data available. Assessment/Plan HTN (hypertension) Osteoarthritis S/P hip replacement 1. Status post left direct anterior total hip arthroplasty postop day #1 2. Continue pain medications: Tylenol and oxycodone. We are avoiding nonsteroidal anti-inflammatories due to patient's chronic kidney disease. I am going to switch patient over to tramadol as I am concerned with stronger narcotic with some concerns of cognitive issues. 3. DVT prophylaxis: Take 81 mg aspirin twice daily with food for 4 weeks postoperatively for DVT prophylaxis. Patient denies past history of DVT or pulmonary embolism 4. Physical therapy: Weightbearing as tolerated with walker. Physical therapy is also recommending group home facility as patient is high risk for fall. 5. H & H: 8.6/26.0, asymptomatic. Postoperative anemia from surgery without intraoperative complications. Preoperatively patient's hemoglobin/hematocrit was 12.2/36.5. There was estimated blood loss of 300 mL. Patient's vital signs are stable and she is currently asymptomatic. We will place her on ferrous sulfate and folic acid. Will repeat CBC tomorrow. 6. Encouraged incentive spirometry 7. Continue postoperative medical management per medicine: Patient does have chronic kidney disease in which her labs are slightly elevated today. 8. Postoperative constipation: Discussed with the patient to continue stool softener until first bowel movement. After first bowel movement patient can then take as needed. They were also instructed that if they are not able to have a bowel movement within 3 days they are to contact our office for change of medication. Patient voiced understanding. 9. Disposition: Due to patient's home situation in which she lives home alone and there is concerns from cognitive standpoint I do recommend patient will require group home facility upon discharge. She had a risk assessment prediction tool score of 3/12 which does recommend group home facility. Case management is currently on board. Patient will require a 3 midnight stay. Plan is for patient to go to [facility] transitional care unit once approval has been obtained. We will continue to monitor her hemoglobin. I have reviewed the [place] Automated Rx Reporting System (OARRS) report for this patient for refill pattern and other prescriber involvement as part of the appropriate surveillance for the provision of acute and chronic controlled medications. The report was requested and reviewed on the date of this entry, and was considered in the prescribing process This dictation was created using voice recognition software. Phonetic and/or grammatical errors may exist. Stage 3a chronic kidney disease (CKD) Digitally Signed by OMERO HUBBARD PA-C on 06/11/2023 07:15 AM [facility] 06-10-2023 Note ORIGINAL Images acquired, not reported on this accession number. [facility] 06-10-2023 Note ORIGINAL EXAMINATION: POSTOPERATIVE HIP TECHNIQUE: AP pelvis and two views of the left hip COMPARISON: None. HISTORY: ORDERING SYSTEM PROVIDED HISTORY: Reason for Exam: Status Post Arthroplasty FINDINGS: The patient is status post left hip replacement. There is appropriate position of the prosthesis. There are postsurgical changes in the soft tissues. No acute fracture is demonstrated. There is moderate to severe narrowing of the right hip. The osseous structures are diffusely demineralized. IMPRESSION: Postsurgical changes of the left hip status post hip replacement. Interpreted by: Marleny Roland MD Preliminary Report By: Marleny Roland MD Electronically signed By Marleny Roland MD Dictated Date: 06/10/2023 1:14:13 PM Prelim Date: 06/10/2023 1:15:03 PM Sign Date: 06/10/2023 1:15:03 PM Ordering Provider: [facility] 06-10-2023 Anesthesiology Consult note Patient: MARY RIBEIRO Age: 88 years Sex: Female : 1935 Associated Diagnoses: None Author: ASHLEY MCGINNIS APRN-BUTADIENE CONVERTER HELPER Preoperative Information Time of last food or liquid consumption: 06/10/2023 00:00:00 Anesthesia history Patient's history: negative. Family's history: negative. Review of Systems Ear/Nose/Mouth/Throat: Negative. Respiratory: Negative. Cardiovascular: htn. Gastrointestinal: Negative. Genitourinary: Negative. Endocrine: Negative. Musculoskeletal: OA. Integumentary: Negative. Neurologic: depression, anxiety. Health Status Allergies: Allergic Reactions (Selected) Severity Not Documented Advil PM- No reactions were documented. Penicillin- No reactions were documented., Allergies (2) ActiveReaction Advil PMNone Documented penicillinNone Documented Current medications: (Selected) Inpatient Medications Ordered Betadine 10% topical solution: 17.5 mL, mL/hr, Topical (INT), PREOP pharm Bicitra: 30 mL, Oral, PREOP pharm LR 1,000 mL: 20 mL/hr, Intravenous, Stop: 06/10/23 23:59:00 EST LR 1000 mL: 20 mL/hr, Intravenous Naropin 100 mg + Toradol 15 mg + EPINEPHrine 1 mg/mL injectable solution 0.3 mg + morphine 2.5 mg...: 100 mg, 20 mL, mL/hr, Other, PREOP pharm Naropin 100 mg + Toradol 15 mg + EPINEPHrine 1 mg/mL injectable solution 0.3 mg + morphine 2.5 mg...: 100 mg, 20 mL, mL/hr, Other, PREOP pharm Zofran ( PACU ): 4 mg, 2 mL, IV Push, AsDirected, PRN: Nausea/Vomiting morphine ( PACU ): 2 mg, 1 mL, IV Push, q5min, PRN: Pain, scale 4-6 tranexamic acid 1 g / 100 mL 0.7% NaCl PMX: 1 gram(s), 100 mL, 300 mL/hr, IV Piggyback, AsDirected Documented Medications Documented Vitamin B12 50 mcg oral tablet: 50 mcg, 1 tab(s), Oral, qDay, 90 tab(s), 0 Refill(s) Vitamin D3: 25 mcg, 1 tab(s), Oral, Daily, 30 tab(s), 0 Refill(s) sertraline 100 mg oral tablet: 100 mg, 1 tab(s), Oral, Daily, 0 Refill(s) valsartan 80 mg oral tablet: 80 mg, 1 tab(s), Oral, qDay, 90 tab(s), 0 Refill(s), Medications (9) Active Scheduled: (5) citric acid-sodium citrate 334 mg-500 mg/5 mL (30 mL) Karie UD 30 mL, Oral, PREOP pharm povidone iodine topical 17.5 mL, Topical (INT), PREOP pharm ropivacaine 100 mg + ketorolac 15 mg + epinephrine 0.3 mg + morphine 2.5 mg 100 mg 20 mL, Other, PREOP pharm ropivacaine 100 mg + ketorolac 15 mg + epinephrine 0.3 mg + morphine 2.5 mg 100 mg 20 mL, Other, PREOP pharm tranexamic acid PMX 1 gram(s) 100 mL, IV Piggyback, AsDirected Continuous: (2) Lactated Ringers 1,000 mL 1,000 mL, Intravenous, 20 mL/hr Lactated Ringers Infusion 1000 mL 1,000 mL, Intravenous, 20 mL/hr PRN: (2) morphine 2 mg/mL 1 mL syringe 2 mg 1 mL, IV Push, q5min ondansetron 2 mg/ 1 mL 2 mL INJ 4 mg 2 mL, IV Push, AsDirected Problem list: Active Problems (3) Anxiety and depression Hypertension Osteoarthritis Histories Past Medical History: No active or resolved past medical history items have been selected or recorded. Family History: Cancer Sister Diabetes Sister Daughter Procedure history: Colonoscopy ([id number]). Mastectomy of left breast ([id number]). Social History Social & Psychosocial Habits Alcohol 06/10/2023 Use: Never Substance Abuse 06/10/2023 Use: Never Tobacco 06/10/2023 Tobacco Use: Never (less than 100 in l Home/Environment 06/10/2023 Domestic Concerns None Lives In Single level home Marital Status of Patient if Patient Independent Adult: Unmarried Nutrition/Health 06/10/2023 Type of diet: Regular Eating Difficulties None . Physical Examination Vital Signs 06/10/2023 10:50 EST Heart Rate Monitored 76 bpm bpm Respiratory Rate - Anes 15 br/min br/min Systolic Blood Pressure Non-Invasive 173 mmHg mmHg Diastolic Blood Pressure Non-Invasive 85 mmHg mmHg 06/10/2023 10:45 EST Heart Rate Monitored 76 bpm bpm Respiratory Rate - Anes 0 br/min br/min 06/10/2023 10:40 EST Respiratory Rate - Anes 0 br/min br/min Systolic Blood Pressure Non-Invasive 193 mmHg mmHg Diastolic Blood Pressure Non-Invasive 89 mmHg mmHg 06/10/2023 10:35 EST Respiratory Rate - Anes 0 br/min br/min Systolic Blood Pressure Non-Invasive 192 mmHg mmHg Diastolic Blood Pressure Non-Invasive 94 mmHg mmHg 06/10/2023 8:25 EST Temperature Temporal Artery 36.5 DegC Peripheral Pulse Rate 68 bpm Respiratory Rate 16 br/min Systolic Blood Pressure Non-Invasive 180 mmHg HI Diastolic Blood Pressure Non-Invasive 71 mmHg Vital Signs(last 24 hrs) Last Charted Heart Rate [id number] bpm (JUN 10 10:50) Resp Rate 16 br/min (JUN 10 08:25) WIU556 mmHg (JUN 10 10:50) DBP85 mmHg (JUN 10 10:50) BMI20.19 (JUN 10 08:30) Measurements from flowsheet : Measurements 06/10/2023 8:30 EST Body Mass Index 20.19 kg/m2 06/10/2023 8:25 EST Height 167 cm Height in inches 65.7 inch(es) Admission Weight 56.3 kg [place] Body Weight 58.72 kg Admission Body Mass Index 20.19 m2 Pain assessment: Pain Assessment 06/10/2023 8:25 EST Primary Pain Intensity 0 Pain Scale Type 0-10 Pain scale . General: Alert and oriented. Airway: Normal temporomandibular joint mobility. Mallampati classification: II (soft palate, fauces, uvula visible). Head: Normocephalic. Dentition Evaluation: Own teeth. Neck: Supple. Respiratory: Lungs are clear to auscultation. Cardiovascular: Normal rate. Heart Sounds: Normal. Gastrointestinal: Soft. Musculoskeletal Normal range of motion. Integumentary: Intact. Neurologic: Alert, Oriented. Review / Management Results review: No qualifying data available , Lab results 06/10/2023 10:50 EST Heart Rate Monitored 76 bpm bpm Respiratory Rate - Anes 15 br/min br/min Systolic Blood Pressure Non-Invasive 173 mmHg mmHg Diastolic Blood Pressure Non-Invasive 85 mmHg mmHg Oxygen Saturation 100 % % tranexamic acid 1 gram(s) gram(s) 06/10/2023 10:45 EST Heart Rate Monitored 76 bpm bpm Respiratory Rate - Anes 0 br/min br/min Oxygen Saturation 95 % % dexAMETHasone 10 mg mg 06/10/2023 10:40 EST Respiratory Rate - Anes 0 br/min br/min Systolic Blood Pressure Non-Invasive 193 mmHg mmHg Diastolic Blood Pressure Non-Invasive 89 mmHg mmHg bupivacaine 1.6 mL mL 06/10/2023 10:35 EST Respiratory Rate - Anes 0 br/min br/min Systolic Blood Pressure Non-Invasive 192 mmHg mmHg Diastolic Blood Pressure Non-Invasive 94 mmHg mmHg 06/10/2023 10:32 EST SN - CTm - Anesthesia Start Time Anesthesia Start cefazolin 2 gram(s) gram(s) midazolam 1 mg mg Sodium Chloride 0.9% 100 mL mL 06/10/2023 10:20 EST SN - Proc - Anesthesia Type Spinal SN - Proc - Actual Procedure ANTERIOR LEFT TOTAL HIP ARTHROPLASTY 06/10/2023 10:19 EST SN - CAt - Case Attendee SN - CAt - Case Attendee SN - CAt - Role Performed Compliance Advisor 2 06/10/2023 10:18 EST SN - CAt - Case Attendee SN - CAt - Case Attendee SN - CAt - Case Attendee SN - CAt - Case Attendee SN - CAt - Case Attendee SN - CAt - Case Attendee SN - CAt - Case Attendee SN - CAt - Case Attendee SN - CAt - Case Attendee SN - CAt - Case Attendee SN - CAt - Role Performed Primary Surgeon SN - CAt - Role Performed BUTADIENE CONVERTER HELPER SN - CAt - Role Performed Compliance Advisor 1 SN - CAt - Role Performed Scrub 1 SN - CAt - Role Performed Singeing Torch Operator 1 06/10/2023 9:11 EST SN - Preop - CTm Pt Ready for OR/Proced 06/10/2023 9:11 06/10/2023 9:07 EST celecoxib 400 mg mg Lactated Ringers Injection 1,000 mL mL 06/10/2023 9:04 EST famotidine 20 mg mg 06/10/2023 8:42 EST Forearm Right 06/10/2023 20 gauge Peripheral IV Activity: Field start Peripheral IV Dressing Condition: Clean, Dry, Intact Peripheral IV Dressing Activity: Applied Peripheral IV Line Status/Patency: Flushes easily, Continuous infusion Peripheral IV Site Condition: No complications Peripheral IV Equipment: Extension set Peripheral IV Number of Attempts: 1 06/10/2023 8:30 EST Designated Person #1 We May Share HORTENCIA COYLE [phone] Designated Person #1 Relationship Daughter Designated Person #2 We May Share PHI CARMELITA WILSON [phone] Designated Person #2 Relationship Daughter Privacy Restrictions Requested None Body Mass Index 20.19 kg/m2 Status N/A Sensory Deficits Hearing deficit, left ear, Hearing deficit, right ear Sleep Apnea Snore Yes Sleep Apnea Tired Yes Sleep Apnea Obstruction No Sleep Apnea Pressure Yes Sleep Apnea BMI No Sleep Apnea Age Yes Sleep Apnea Neck No Sleep Apnea Gender No Sleep Apnea Score 4 Diagnosed With Sleep Apnea No Advanced Directives Yes Advance Directive Type [place] Durable Power of Claims Consultant for [place], [place] Declaration (Living Will) Advance Directive Location Indicates that John has been given copy Infectious Disease Symptoms Patient states no symptoms Infectious Disease Recent Exposure No Alcohol and Drug Use No Employee of Institutional Living No Health Care Employee No History of Exposure to TB No History of Positive Chest X-Ray for TB No History of Positive TB Skin Test No Homeless No Known Immunosuppression No Recent Immigrant No Resident of Institutional Living No Bloody Sputum No Fatigue No Fever No Loss of Appetite No Night Sweats No Persistent Cough > 3 Weeks No Weight Loss No Pre-Op Patient Education NPO after midnight, No smoking after midnight, No makeup, No jewelry, Aware of surgery location, Pre-op education done, 1 bottle CHG wash with instructions given, No ordered medications SN - Preprocedure Comments Spoke with patient, Verbalizes/Nonverbally indicates understanding Barriers to Learning None evident Teaching Method Explanation, Printed materials Preferred Spoken Language Iranian Preferred Written Language Iranian Teaching Evaluation Verbalizes/Nonverbally indicates understanding Total Joint Book Given Yes Safety Brochure Information Reviewed Unable to complete John Cruz Video Viewed Patient refused Information Given by Patient Patient's Current Physicians Patient's Current Physicians Discharge To, Anticipated Home with family care Prev Test Positive/Diagnosis w/COVID-19 No Current Quarantine/Isolated any Illness No Any Contact with Sick Animals/Birds No Traveled Anywhere in Last 30 Days No Lost Weight Unintentionally Recently No Eat Poorly Due to Decreased Appetite No Total MST Score 0 N/A Personal Devices, Patient Valuables Glasses Anesthesia/Transfusions Prior anesthesia Admission Note-Nursing Same Day Patient History 06/10/2023 8:27 EST Allergies No Consent Form Signed Yes Patient Dressed In Hospital gown CHG Preoperative Wash/Wipe Night before procedure, Day of procedure, Site specific wipe Preop Nasal Swab Povidone-Iodine CHG Skin Prep Completed for Eligible Surgery History & Physical On Chart Yes Obstructive Sleep Apnea Assess Completed Yes Belongings At Bedside Assistive devices, Glasses, Hearing aid, left, Hearing aid, right, Jacket, Pants, Purse, Shirt, Shoes, Socks, Sweatshirt NPO Status Maintained Allergy Band on and Verified No Patient ID Band on and Verified Yes Implants Verified Yes Pacemaker/AICD Verified Yes Site Verified by Patient/Family Yes Blood Consent Signed Yes Last Fluid Intake 06/09/2023 20:00 Last Food Intake 06/09/2023 20:00 06/10/2023 8:25 EST Height 167 cm Height in inches 65.7 inch(es) Admission Weight 56.3 kg [place] Body Weight 58.72 kg Admission Body Mass Index 20.19 m2 Temperature Temporal Artery 36.5 DegC Peripheral Pulse Rate 68 bpm Respiratory Rate 16 br/min Systolic Blood Pressure Non-Invasive 180 mmHg HI Diastolic Blood Pressure Non-Invasive 71 mmHg Primary Pain Intensity 0 Pain Scale Type 0-10 Pain scale Heart Rhythm Regular Dorsalis Pedis Pulse, Left 2+ Normal Dorsalis Pedis Pulse, Right 2+ Normal Respirations Unlabored Respiratory Pattern Regular Breath Sounds Auscultated Anterior and posterior All Lobes Breath Sounds Clear Cough None Oxygen Therapy Room air Oxygen Saturation 98 % Abdomen Description Non-distended Abdomen Palpation Non-Tender, Soft Bowel Sounds All Quadrants Present Urinary Elimination Voiding, no difficulties Skin Temperature Warm Skin Description [place], Normal for ethnicity Skin Integrity Intact Mucous Membrane Color [place] Neurological Symptoms Patient denies Extremity Movement Equal Characteristics of Speech Clear Level of Consciousness Alert Strength All Extremities Moderate Tone All Extremities Normal Sensation All Extremities Intact Affect/Behavior Appropriate, Calm, Cooperative Orientation Oriented x 4 Lorie Motor (2) Moves 4 extremities voluntarily or on command Lorie Respirations (2) Spontaneous respiration without support, RR > 10 Lorie Blood Pressure (2) BP 20% above or below preanesthetic level Lorie Pulse (2) Pulse 20% above or below preanesthetic level Lorie Oxygen Saturation (2) 94% or more Lorie Level of Consciousness (2) Fully awake Lorie III Score 12 Orientation Assessment Oriented x 4 Assistive Device None Positioning Repositions self Mobility Assistance Level Independent Activity Status ADL Awake, Resting Standard Safety ID band on, Call device within reach, Bed in low position, Wheels locked, Upper/Half-Length side-rails up, Phone within reach, personal items within reach, Assistive devices within reach 06/10/2023 8:16 EST SN - Preop - CTm Pt in SDS Room 06/10/2023 8:16 . Assessment and Plan [place] [employer] (ASA) physical status classification: Class II. Anesthetic Preoperative Plan Premedication: intravenous. Anesthetic technique: Spinal. Induction: intravenously. Maintenance airway: 40% FM. Regional: Spinal. Postoperative pain management: Per surgeon. Informed consent: signed by patient. Digitally Signed by ASHLEY MCGINNIS on 06/10/2023 10:59 AM [facility] 11-08-2020 Note HNO ID: [id number] Author: Poly Rosenbaum MD Service: ? Author Type: Physician Type: Progress Notes Filed: 11/08/2020 7:07 PM Note Text: TELEPHONE FOLLOW-UP ENCOUNTER Mary Ribeiro [id number] has requested a telemedicine follow-up visit. Mary Chew Mohsennoristrenaanirudh verbalized informed consent to proceed with the telemedicine follow-up visit. Mary Chew Santianirudh was informed that the details of this telephone visit would be recorded as part of their electronic medical record. I had a telephone visit with Ms. Ribeiro today for follow up of EGD done 10/25/2020. Biopsies revealed no significant pathology. I spoke with patient's daughter, as she is primary contour sander. She states that her mother still has dysphagia. I have asked her to tell me where her mother feels that her food is getting stuck and her daughter states that she notes her mother is pointing to her throat. I have explained that this is more pharyngeal dysphagia and would better evaluated with a swallowing study and ENT evaluation. PAST MEDICAL HISTORY Diagnosis Date - Back pain - Hypertension PAST SURGICAL HISTORY Procedure Laterality Date - APPENDECTOMY HX - COLONOSCOPY 2010? - EGD 10/25/2020 - INJ ANESTH AGENT SPINE every 3 months Social History Tobacco Use - Smoking status: Never Smoker - Smokeless tobacco: Never Used Substance Use Topics - Alcohol use: Not on file - Drug use: Not on file Current Outpatient Medications Medication Sig Dispense Refill - valsartan (DIOVAN) 80 mg tablet Take 80 mg by mouth once daily. - amLODIPine (NORVASC) 5 mg tablet Take by mouth once daily. - cholecalciferol, vitamin D3, (VITAMIN D3 ORAL) Take by mouth. - mecobalamin, vitamin B12, (B12 ACTIVE) 1,000 mcg chew Take by mouth. - cephALEXin (KEFLEX) 500 mg capsule Take 500 mg by mouth three times daily. - sertraline HCl (SERTRALINE ORAL) Take 10 mg by mouth once daily. ALLERGIES Allergen Reactions - Advil Pm [Ibuprofen* Itching - Penicillin Unknown - Tylenol [Acetaminop* Unknown No physical exam performed due to telephone encounter. Assessment IMPRESSION Pharyngeal dysphagia PLAN I spoke to the patient's daughter with regard to the above. I will place orders for ENT consultation and also swallowing study. I spent 19 minutes in the telephone visit, reviewed medical records and associated laboratory/radiological studies, ordering tests/procedures, and appropriate medical documentation. I have confirmed and edited as necessary, the PFSH and ROS obtained by others. Unrelated to E/M, telemedicine, or virtual visit service provided within previous 7 days. No E/M service or procedure anticipated within next 24 hours. Poly Rosenbaum MD November 08, 2020 6:59 PM [facility] 10-13-2020 Note HNO ID: [id number] Author: Eric Goddard Service: ? Author Type: Physician Type: Progress Notes Filed: 10/17/2020 9:57 AM Note Text: HISTORY AND PHYSICAL Mary Ribeiro 1935 REFERRING PHYSICIAN: Priyanka Angel MD CHIEF COMPLAINT: No chief complaint on file. HPI: The patient is a 85 year old female referred for endoscopy. Mary notes no history of colon complaints. The patient notes the following upper complaints: Mary denies abdominal pain.. Mary notes heartburn. Mray notes dysphagia. Mary denies a history of ulcers/ peptic ulcer disease. Mary has not undergone prior endoscopy. Has had an upper GI study performed at [facility] on 10/11/2020. This showed that the ingested 12 mm tablet was trapped at the gastroesophageal junction. The patient is being seen by me today at the request of Dr. Palmer primary care provider on file. for my opinion and advice regarding Esophageal dysphagia (primary encounter diagnosis). PAST MEDICAL HISTORY Diagnosis Date - Back pain PAST SURGICAL HISTORY Procedure Laterality Date - APPENDECTOMY HX - COLONOSCOPY 2010? - INJ ANESTH AGENT SPINE every 3 months - MASTECTOMY HX 1955 Current Outpatient Medications Medication Sig - valsartan (DIOVAN) 80 mg tablet Take 80 mg by mouth once daily. - amLODIPine (NORVASC) 5 mg tablet Take by mouth once daily. - cholecalciferol, vitamin D3, (VITAMIN D3 ORAL) Take by mouth. - mecobalamin, vitamin B12, (B12 ACTIVE) 1,000 mcg chew Take by mouth. - sertraline HCl (SERTRALINE ORAL) Take 10 mg by mouth once daily. - cephALEXin (KEFLEX) 500 mg capsule Take 500 mg by mouth three times daily. No current facility-administered medications for this visit. ALLERGIES: Advil Pm [Ibuprofen-Diphenhydramine Cit], Penicillin, and Tylenol [Acetaminophen] PERSONAL HISTORY: Social History Tobacco Use - Smoking status: Never Smoker - Smokeless tobacco: Never Used Substance Use Topics - Alcohol use: Not on file - Drug use: Not on file FAMILY HISTORY: No family history on file. REVIEW OF SYMPTOMS: The review of systems data was entered by the nurse and reviewed by me Nursing Notes: Angelica Buckley LPN 10/16/2020 8:05 AM Signed REVIEW OF SYSTEMS: General: The patient denies fatigue, denies weight loss, denies weight gain, denies feeling hot, and denies feelings of cold. Eyes: The patient denies glaucoma, denies eye injury/surgery, does not wear glasses or contacts. Ear/Nose/Throat: The patient denies allergies, denies hayfever, denies ear infections, and denies bloody noses. Cardiovascular: The patient denies chest pain, denies heart disease, NOTES high blood pressure,denies cardiac stent, denies prior heart attack, denies irregular heart beat, NOTES high cholesterol, denies poor circulation, denies heart failure, other cardiac issues, NOTES claudication, NOTES cold feet, denies peripheral arterial stent. Respiratory: The patient denies tuberculosis, denies pneumonia, denies frequent cough, denies pulmonary embolism, denies shortness of breath, and denies coughing up blood. Gastrointestinal: The patient denies difficulty swallowing, denies acid reflux, denies ulcers, denies vomiting, denies jaundice/hepatitis, denies gallbladder problems, denies black or tarry stools, denies hemorrhoids, denies bleeding from rectum, denies diverticulitis, denies constipation, denies diarrhea, denies loss of stool control, and denies hernias. Kidney/Bladder: The patient denies kidney stones, NOTES urine infections, and denies bloody urine. Skin: The patient denies a history of skin cancer, denies bleeding/changing moles, and denies a history of skin rash. Neurologic: The patient denies a history of epilepsy/convulsions, denies headaches, denies head/spinal injuries, and denies stroke/TIA. Psychiatric: The patient denies psychiatric medications, denies depression, and denies voices, denies substance abuse. Endocrine: The patient denies thyroid disorders, denies diabetes, and denies hormonal problems. Hematologic: The patient denies a history of bruising, denies bleeding, and denies anemia, denies blood clots. Infections: The patient denies a history of measles and mumps, denies rheumatic fever, and denies sexually transmitted diseases. Musculoskeletal: The patient NOTES back pain/injury, denies back problems, denies sciatica, denies knee/foot trouble, NOTES arthritis, or denies gout. ? ? When was patient's last Mammogram screening? N/A ? Last Colonoscopy: None ? Angelica Buckley LPN PHYSICAL EXAMINATION: General: The patient is 85 year old female, well nourished, well hydrated in no acute distress. The patient is oriented to time, place, and person. VITALS: Pulse 98, temperature 36.4 ?C (97.6 ?F), height 170.2 cm (5' 7 ), weight 56.7 kg (125 lb), SpO2 98 %. Body mass index is 19.58 kg/m?. HEENT: Normal cephalic, ataumatic, pupils are equally round, sclera are anicteric (more content not included)... [facility] Evaluation + Plan note Future Appointments [facility] Hospital course Narrative No data available for this section [facility] Hospital Discharge instructions No data available for this section [facility] Progress note No data available for this section [facility] Summary Purpose Family History No Family History Records FoundNo Family History Records FoundNo Family History Records Found No data available for this section No data available for this section No Family History Records Found Advance Directives No Advanced Directives Records FoundNo Advanced Directives Records FoundNo Advanced Directives Records FoundNo Advanced Directives Records Found Hospital Course Note HNO ID: [id number] Author: Abbi Freitas Service: Trauma Author Type: Physician Type: Discharge Summary Filed: 06/07/2019 1:42 PM Note Text: DISCHARGE SUMMARY PATIENT NAME: Mary Ribeiro Code Status: Not on file Highest Readmission Risk Score: 10 The 30 day readmissions risk score is derived from an internally validated risk model which evaluates patient level characteristics, utilization history, medication orders and lab results up until the day of discharge. Patients with a score of 40 or above are considered highest risk for readmission. Specific patient level drivers will be listed at the bottom of the summary. Admission Information Admission Information ADMIT DATE: 06/07/2019 DISCHARGE DATE: 06/07/2019 MY DOCTORS AND MEDICAL TEAM: My Main Hospital Doctor: Zhao Yoder Primary Care Provider: No primary care provider on file. My Medical Team Members: Treatment Team: Attending Provider: Zhao Yoder MY CONDITION AT DISCHARGE: Stable REASON I WA (more content not included)... Additional Source Comments INFORMATION SOURCE (unrecogn ized section and content) DATE CREATED AUTHOR AUTHOR'S ORGANIZ ATION 10/19/2019 [facility] [employer] DATE CREATED AUTHOR AUTHOR'S ORGANIZ ATION 08/12/2021 [facility] DATE CREATED AUTHOR AUTHOR'S ORGANIZ ATION 07/11/2023 [facility] ([place]) Patient Care team informatio n (unrecognized section and content) Care Team Personnel Name: PRIYANKA ANGEL MD Member Role: Primary Care Physician Address: Address: [facility] [address] [place] [address]- Care Team Related Persons Name: LEONIDES SALINAS Care Team Personnel Name: PRIYANKA ANGEL MD Member Role: Primary Care Physician Address: Address: [facility] [address] [place] [address]- Care Team Related Persons Name: CHELSEA SALINAS FOR RECORDS PERTAINING TO PATIENTS WHO ARE OR HAVE BEEN ENROLLED IN A CHEMICAL DEPENDENCY/SUBSTANCEABUSE PROGRAM, SOME INFORMATION MAY BE OMITTED. This clinical summary was aggregated from multiple sources. Caution should be exercised in using it in the provision of clinical care. This summary normalizes information from multiple sources, and as a consequence, information in this document may materially change the coding, format and clinical context of patient data. In addition, data may be omitted in some cases. CLINICAL DECISIONS SHOULD BE BASED ON THE PRIMARY CLINICAL RECORDS. [employer] [facility]. provides no warranty or guarantee of the accuracy or completeness of information in this document.
[2023-08-29 12:17] LABS: Absolute Lymphocyte Count 1.33 X10^3/uL (0.83-4.51); Absolute Neutrophil Count 2.5 X10^3/uL (2.0-7.7); Basophil# 0.02 X10^3/uL; Basophil% 0.4 % (0-1); Eosinophil# 0.05 X10^3/uL; Eosinophils% 1.1 % (0-5); Hematocrit 41.2 % (37-47); Hemoglobin 12.7 g/dL (12.0-15.0); Lymphocyte # 1.33 X10^3/ul (0.83-4.51); Lymphocyte % 29.7 % (19-41); Mean Corp Hgb Conc 30.8 g/dL (32-36); Mean Corpuscular Hgb 30.2 pg (27.0-32.0); Mean Corpuscular Volume 97.9 fL (81-99); Mean Platelet Vol. 10.2 fl (6.2-12.0); Monocyte# 0.62 X10^3/uL; Monocyte% 13.8 % (0-10); NRBC Flagged by Analyzer 0 % (0-5); Neutrophil # 2.45 X10^3/uL (2.7-7.7); Neutrophil % 54.8 % (47-70); Platelet Count 227 K/mm3 (150-450); RBC Distribution Width CV 12.6 % (11.6-14.6); RBC Distribution Width SD 45.5 fl (35.1-43.9); Red Blood Count 4.21 M/mm3 (4.2-5.4); White Blood Count 4.5 K/mm3 (4.4-11.0)
[2023-08-29 12:49] LABS: AST(SGOT) 17 U/L (15-37); Alanine Aminotransfer ALT/SGPT 18 U/L (13-56); Albumin, Serum 3.6 g/dL (3.2-5.0); Alkaline Phosphatase 74 U/L (45-117); Anion Gap 3 (5-15); BUN 25 mg/dL (7-18); BUN/Creat Ratio 20.7 RATIO (10-20); Calcium,Total 9.4 mg/dL (8.5-10.1); Chloride 108 mmol/L (98-107); Creatinine, Serum 1.21 mg/dL (0.55-1.02); EST Glomerular Filtration Rate 45 mL/min (>60); Est Glom Filt Rate - Afr Amer 54 mL/min (>60); Globulin 3.5 g/dL (2.2-4.2); Glucose 66 mg/dL (74-106); Potassium 4.3 mmol/L (3.5-5.1); Protein, Total 7.1 g/dL (6.4-8.2); Sodium Level 140 mmol/L (136-145); Thyroid Stim Hormone (TSH) 1.36 uIU/mL (0.358-3.74)
== END | disposition home or self-care (01) ==
PROVIDERS: PCP Family Medicine; Visit Provider Family Medicine
DX: R42 Dizziness and giddiness (principal)
CPT/HCPCS: 36415; 80053; 84443; 85025

== ENCOUNTER → 2023-09-03 | Outpatient (CLI) | payer MEDICARE, OTHER, SELFPAY ==
--- NOTE | 2023-09-03 10:11 | RAD_ITS ---
STUDY: X-RAY CHEST REASON FOR EXAM: Female, 88 years old. L side/flank/back pain along rib cage; chronic cough TECHNIQUE: PA and lateral views of the chest. COMPARISON: Comparison is made with prior study September 20, 2020. FINDINGS: A loop recorder device is seen overlying the right inferior paratracheal region. There is hyperinflation of the lungs consistent with chronic obstructive lung disease (COPD). There is no demonstrated pleural abnormality. Normal size heart. Normal mediastinum and leti. Normal visualized pulmonary arteries. There is atherosclerotic calcification of the aortic arch with tortuosity. There are diffuse degenerative changes of the visualized thoracic spine. Increased kyphosis. Healed right rib fractures. There is no demonstrated abnormality of the visualized soft tissue structures of the upper abdomen. RAD/Chest PA and Lateral IMPRESSION: Hyperinflation. No acute abnormality is seen. Electronically Signed: Greg Harding MD at 11:08 EST ,
== END | disposition home or self-care (01) ==
LOC: MTRAD 10:09
PROVIDERS: PCP Family Medicine; Referring Provider Family Medicine; Visit Provider Family Medicine
DX: R05.9 Cough, unspecified (principal); R07.89 Other chest pain
CPT/HCPCS: 71046

== ENCOUNTER 2023-10-08 10:00 | Outpatient (RCR) | payer MEDICARE, OTHER, SELFPAY ==
--- NOTE | 2023-09-05 10:00 | HP.PTEVAL ---
Patient's Visit Information Visit Information Visit Information: OBED WRIGHT is a 88 year old F referred to Physical Therapy by Dr. Marco Angel MD with a diagnosis of vertigo. Date of Evaluation: 09/05/23 Physical Therapist: ADAM Morel Visit Plan Frequency: 2x /Week Duration: 2 Months Plan: 2X/ week for 8 weeks for functional balance, gait training, posture and increase step length with gait, gait with head turns, curb steps, sit to stand transfers to balance, and other functional activities Subjective Subjective: Pt has been having dizzy spells. They came on a week ago. She gets them when she walks or bends over. She will not get it sitting. If she turns her head really fast she will get dizzy. If she turns her head to the R she will get dizzy. She reports that she has some neck pain on the L side and that has been there for awhile. The dizzy spells will only last less than 30 seconds. Once in awhile when she stands up she will get dizzy and reports it is the same things as if she turns her head. She has no nausea with it. She has balance issues and they told her that she is wobbly and even reccommend a walker. It has been a while (a year) since she fell. She has 4 steps going in the front step with a railing. Objective Objective: Gait: walks with a straight cane with head straight ahead looking at the ground with smaller step length and flexed posture LE MMT: R hip flex 15.5 and L 16.8 R knee ext 11.9 and L 15.6 R knee flex 10.9 and L 11.6 CATSIB 110 FGA 8 Sit to stand: needs to use UE to stand and help balance Stepping over an object...needs UE assistance and CGA Balance/Special Test Scores Functional Gait Assessment Score: 8 % Disability: 73.3400 CATSIB Score (Max score 120 seconds): 110 Dizziness Score: 28 Goals Goal 1:: I HEP Goal Time Frame: 8-12 Weeks Goal 2:: Be able to walk with bigger steps, no veering, with a straight cane back to the treatment area Goal Time Frame: 8-12 Weeks Goal 3:: Increase balance by increase balance on uneven surface with EC (CATSIB at al was 110) Goal Time Frame: 8-12 Weeks Goal 4:: Increase functional balance (score was 8 at eval) Goal Time Frame: 8-12 Weeks Rehabilitation Potential Rehabilitation Potential: Good Anticipated Interventions Patient/Client Instruction: Educate patient on: Condition and Plan of Care For the Purpose of:: To improve muscle performance and motor function, To improve ability to perform ADL's, To increase tolerance to activity/condition/position, To improve performance and independence with ADL's, To decrease level of supervision to perform tasks, To improve ability of physical actions for home/community/work/leisure, To improve gait and locomotor functions, To improve balance, To improve safety with gait, To assume or resume ADL's and To improve safety Therapeutic Exercise to Include: Balance training, Body mechanics, Postural training, Gait and locomotor training, Neuromotor development and Active ROM For the Purpose of:: To improve gait and locomotor functions, To improve balance and To improve safety with gait Functional Training to Include: Gait training For the Purpose of:: To improve gait and locomotor functions and To improve safety with gait Text: Thank you for the opportunity to evaluate your patient. For Medicare and Medicare HMO plans, please review the plan of care and approve it. It will need to be FAXED BACK to us at [phone] for Medicare purposes. For Medicare only, by signing this I certify the plan of care. Please let me know if there are questions or concerns regarding this plan of care. Physician Signature: Date:
--- NOTE | 2023-10-08 10:57 | HP.PTDCSUM ---
Discharge Summary D/C summary: It has been my pleasure to treat OBED WRIGHT referred by Dr. Marco Angel MD, with the diagnosis of vertigo for a total of 8 visit(s). Discharge Date: 10/08/23 Please see the following information for a summary of their discharge status. Subjective Subjective: Pt feels that PT is not helping her balance. Objective Objective/Function: Gait: walks with slightly larger steps with a straight cane but still veers and scissors especially when she turns her head quickly to hear you. Catches her foot at times as well. FGA 9 CATSIB 114 Had pt use a rollator today in the clinic and she was able to walk with a very smooth gait pattern including walking with head turns and without veering. Encouraged pt to get a rollator for safety but she does not want to. Goals Goal 1:: I HEP Goal 2:: Be able to walk with bigger steps, no veering, with a straight cane back to the treatment area Goal Progress: Progressing Goal 3:: Increase balance by increase balance on uneven surface with EC (CATSIB at eval was 110) Goal Progress: Goal Met Goal 4:: Increase functional balance (score was 8 at eval) Goal Progress: Goal Met Plan Plan: DC PT to HEP and use of a rollator is suggested. D/C Information Discharge Comments: DC PT d/c sentence: If there are questions or concerns regarding this patient's physical therapy, please feel free to call me at [phone]. Thank you for the referral of this patient. Sincerely, Lauryn Saldana, MPT Balance/Gait/Functional tests Balance/Special Test Scores Functional Gait Assessment Score: 9 % Disability: 70.0000 CATSIB Score (Max score 120 seconds): 114 Dizziness Score: 30
== END 2023-10-08 19:00 | disposition home or self-care (01) ==
LOC: PT 10:00
PROVIDERS: PCP Family Medicine; Referring Provider Family Medicine; Visit Provider Family Medicine
DX: R42 Dizziness and giddiness (principal)
CPT/HCPCS: 97110; 97161; 97530

== ENCOUNTER → 2024-01-26 | Outpatient (CLI) | payer MEDICARE, OTHER, SELFPAY ==
[2024-01-26 17:57] LABS: Absolute Lymphocyte Count 1.85 X10^3/uL (0.83-4.51); Absolute Neutrophil Count 3.6 X10^3/uL (2.0-7.7); Basophil# 0.02 X10^3/uL; Basophil% 0.3 % (0-1); Eosinophil# 0.06 X10^3/uL; Eosinophils% 0.9 % (0-5); Hematocrit 38.2 % (37-47); Hemoglobin 12.1 g/dL (12.0-15.0); Lymphocyte # 1.85 X10^3/ul (0.83-4.51); Mean Corp Hgb Conc 31.7 g/dL (32-36); Mean Corpuscular Hgb 30.6 pg (27.0-32.0); Mean Corpuscular Volume 96.5 fL (81-99); Monocyte# 0.83 X10^3/uL; NRBC Flagged by Analyzer 0 % (0-5); Neutrophil # 3.61 X10^3/uL (2.7-7.7); Neutrophil % 56.6 % (47-70); Platelet Count 200 K/mm3 (150-450); RBC Distribution Width CV 12.8 % (11.6-14.6); RBC Distribution Width SD 45.6 fl (35.1-43.9); Red Blood Count 3.96 M/mm3 (4.2-5.4); White Blood Count 6.4 K/mm3 (4.4-11.0)
[2024-01-26 18:20] LABS: Erythrocyte Sedimentation Rate 18 mm/hr (0-30)
[2024-01-26 18:30] LABS: Vitamin B12 1089 pg/mL (211-911)
[2024-01-26 18:49] LABS: AST(SGOT) 17 U/L (15-37); Alanine Aminotransfer ALT/SGPT 20 U/L (13-56); Albumin, Serum 3.6 g/dL (3.2-5.0); Alkaline Phosphatase 55 U/L (45-117); Anion Gap 7 (5-15); BUN 24 mg/dL (7-18); BUN/Creat Ratio 18.3 RATIO (10-20); CRP < 2.90 mg/L (0.0-3.0); Calcium,Total 9.1 mg/dL (8.5-10.1); Chloride 107 mmol/L (98-107); Creatinine, Serum 1.31 mg/dL (0.55-1.02); EST Glomerular Filtration Rate 41 mL/min (>60); Est Glom Filt Rate - Afr Amer 49 mL/min (>60); Globulin 3.5 g/dL (2.2-4.2); Glucose 95 mg/dL (74-106); Potassium 4.1 mmol/L (3.5-5.1); Protein, Total 7.1 g/dL (6.4-8.2); Sodium Level 139 mmol/L (136-145); Thyroid Stim Hormone (TSH) 1.15 uIU/mL (0.358-3.74)
[2024-01-28 15:09] LABS: PROEL- A/G Ratio 1.4 (0.7-1.7); PROEL- Albumin 3.7 g/dL (2.9-4.4); PROEL- Alpha-1 Globulin 0.3 g/dL (0.0-0.4); PROEL- Alpha-2 Globulin 0.7 g/dL (0.4-1.0); PROEL- Beta Globulin 0.9 g/dL (0.7-1.3); PROEL- Gamma Globulin 0.8 g/dL (0.4-1.8); PROEL- Globulin, Total 2.7 g/dL (2.2-3.9); PROEL- TOTAL PROTEIN 6.4 g/dL (6.0-8.5); PROEL-M-Spike Not Observed g/dL (Not Observed)
== END | disposition home or self-care (01) ==
LOC: MFPLAB 16:57
PROVIDERS: PCP Family Medicine; Visit Provider Family Medicine
DX: R53.83 Other fatigue (principal); R42 Dizziness and giddiness
CPT/HCPCS: 36415; 80053; 82607; 82746; 84165; 84443; 85025; 85652; 86140

== ENCOUNTER → 2024-06-14 | Outpatient (CLI) | payer MEDICARE, OTHER, SELFPAY ==
--- NOTE | 2024-06-14 14:37 | RAD_ITS ---
EXAM: XR LUMBOSACRAL SPINE, 2 OR 3 VIEWS CLINICAL INDICATION: LOWER BACK PAIN TECHNIQUE: Frontal and lateral views of the lumbar spine and sacrum. COMPARISON: CT lumbar spine, 11/22/2020 and lumbar spine radiographs, 12/06/2020. FINDINGS: VERTEBRAE: Multilevel facet and endplate osteophytosis. L1 superior endplate compression deformity correlating with the prior CT examination. Less than 50% vertebral body height loss with similar appearance to the prior exam. Preservation of the normal lumbar lordosis. No spondylolysis or spondylolisthesis. SACRUM/COCCYX: Arthrosis of the bilateral SI joints. 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 DISC SPACES: Multilevel intervertebral disc height loss. GASTROINTESTINAL TRACT: Normal as visualized. Included bowel gas pattern is non-obstructive. OTHER FINDINGS: Left hip arthroplasty. RAD/Lumbar Spine 2 or 3 Views IMPRESSION: L1 superior endplate compression deformity correlating with the prior CT examination. Less than 50% vertebral body height loss with similar appearance to the prior exam. Multilevel degenerative changes. Electronically Signed: Adryan Israel DO at 23:53 EST ,
--- NOTE | 2024-06-14 14:37 | RAD_ITS ---
EXAM: XR CERVICAL SPINE, 6 OR MORE VIEWS CLINICAL INDICATION: CERVICALGIA TECHNIQUE: Frontal, lateral, oblique and flexion/extension views of the cervical spine. 10 total views. COMPARISON: Cervical spine radiographs, 06/06/2019 FINDINGS: VERTEBRAE: Multilevel facet, uncovertebral joint, and endplate osteophytosis. Degenerative trace anterolisthesis of C4 upon C5 and C5 upon C6 which appears to reduce on both flexion and extension. Preserved vertebral body height. No acute fracture. No spondylolisthesis. Preservation of the normal cervical lordosis. No evidence of craniocervical instability. The C1-C2 articulations are within normal limits. DISC SPACES: Multilevel intervertebral disc height loss. Apparent osseous encroachment of multiple neural foramina adequately evaluated. SOFT TISSUES: No significant abnormality. No prevertebral soft tissue widening. VASCULATURE: Vascular calcifications. LUNG APICES: Clear. RAD/Cerv Spine Obl/Flex/Ext Comp IMPRESSION: 1. Degenerative trace anterolisthesis of C4 upon C5 and C5 upon C6 which appears to reduce on both flexion and extension. Degenerative changes throughout the cervical spine. No acute osseous abnormalities. 2. Apparent osseous encroachment of multiple neural foramina adequately evaluated. Consider MRI or CT examination for further evaluation. Electronically Signed: Adryan Isarel DO at 23:49 EST ,
[2024-06-14 14:42] LABS: Mucous, Urine 0 SEEN /hpf (<or=2+)
[2024-06-14 17:44] LABS: Color, Urine Yellow (Yellow); Glucose, Dipstick Normal (Normal); Ketone-Dipstick Negative (Negative); Leukocyte Esterase-Dipstick 500 /ul (Negative); Nitrite-Dipstick Positive (Negative); Occult Blood-Urine 25 /ul (Negative); Protein-Dipstick 15 mg/dl (Negative); Urine Bilirubin Dipstick Negative (Negative); Urine Clarity Cloudy (Clear); Urine Urobilinogen Normal (Normal)
[2024-06-14 18:24] LABS: Microalbumin,Random Urine 23.4 mg/L (NO RANGE EST.)
[2024-06-14 18:36] LABS: Bacteria 3+ /hpf (None Seen); Squamous Epithelial Cells - UA 10-25 SEEN /hpf (5-10)
[2024-06-14 18:37] LABS: Transitional Epithelial - Ur 0-5 SEEN /hpf (0-5); White Blood Cells >100 SEEN /hpf (0-5)
[2024-06-14 18:38] LABS: Red Blood Cells-Urine 0-5 SEEN /hpf (0-5)
[2024-06-14 19:05] LABS: Anion Gap 8 (5-15); BUN 22 mg/dL (7-18); BUN/Creat Ratio 17.2 RATIO (10-20); Calcium,Total 9.4 mg/dL (8.5-10.1); Chloride 106 mmol/L (98-107); Creatinine, Serum 1.28 mg/dL (0.55-1.02); EST Glomerular Filtration Rate 42 mL/min (>60); Est Glom Filt Rate - Afr Amer 51 mL/min (>60); Glucose 85 mg/dL (74-106); Potassium 3.6 mmol/L (3.5-5.1); Sodium Level 140 mmol/L (136-145)
== END | disposition home or self-care (01) ==
PROVIDERS: PCP Family Medicine; Referring Provider Family Medicine; Visit Provider Family Medicine
DX: R10.2 Pelvic and perineal pain (principal); M54.2 Cervicalgia; M54.50 Low back pain, unspecified
CPT/HCPCS: 36415; 72052; 72100; 80048; 81001; 82043; 82570; 87077; 87086; 87088; 87186

== ENCOUNTER → 2025-02-25 | Outpatient (CLI) | payer MEDICARE, OTHER, SELFPAY ==
[2025-02-25 11:29] LABS: Mucous, Urine 0 SEEN /hpf (<or=2+)
--- NOTE | 2025-02-25 11:56 | RAD_ITS ---
PROCEDURE: CERV SPINE 4 OR 5 VIEWS 02/25/2025 REASON FOR EXAM: ONGOING PAIN AND SEVERE ANTERIOR DISPLACEMENT TECHNIQUE: CERV SPINE 4 OR 5 VIEWS COMPARISON: 06/14/2024 FINDINGS: See impression RAD/Cerv Spine 4 or 5 Views IMPRESSION: Vertebral body heights are within normal limits. Slightly accentuated cervical lordosis. Upper thoracic kyphosis. Minimal levoscoliosis. Degenerative grade 1 anterolisthesis of C4-5 and C5-6. Moderat e multilevel disc space narrowing and facet arthrosis, greatest from C5 through C7. Advanced multilevel facet arthropathy. Neural foramina are not adequately profiled for comment. Lung apices are clear. Reading Location: [facility]
[2025-02-25 15:25] LABS: Hematocrit 36.4 % (37-47); Hemoglobin 11.8 g/dL (12.0-15.0); Immature Granulocytes Count 0.010 X10^3/uL (0.0-0.0); Mean Corp Hgb Conc 32.4 g/dL (32-36); Mean Corpuscular Volume 96.8 fL (81-99); Mean Platelet Vol. 11.1 fl (6.2-12.0); NRBC Flagged by Analyzer 0 % (0-5); Platelet Count 214 K/mm3 (150-450); RBC Distribution Width CV 12.7 % (11.6-14.6); RBC Distribution Width SD 45.2 fl (35.1-43.9); Red Blood Count 3.76 M/mm3 (4.2-5.4); White Blood Count 5.3 K/mm3 (4.4-11.0)
[2025-02-25 15:30] LABS: Color, Urine Straw (Yellow); Glucose, Dipstick Normal (Normal); Ketone-Dipstick Negative (Negative); Leukocyte Esterase-Dipstick 500 /ul (Negative); Nitrite-Dipstick Positive (Negative); Occult Blood-Urine 25 /ul (Negative); Protein-Dipstick 15 mg/dl (Negative); Specific Gravity, Urine 1.010 (1.002-1.030); Urine Bilirubin Dipstick Negative (Negative)
[2025-02-25 15:51] LABS: Creatinine, Urine (random) 72.60 mg/dL (28.00-217.00); Microalbumin,Random Urine 17.2 mg/L (<20 mg/L)
[2025-02-25 16:07] LABS: Albumin, Serum 4.2 g/dL (3.4-4.8); BUN 28 mg/dL (4-19); BUN/Creat Ratio 23.6 RATIO (10-20); Globulin 2.9 g/dL (2.2-4.2); Glucose 86 mg/dL (70-99)
[2025-02-25 16:08] LABS: AST(SGOT) 23 U/L (<=31); Alanine Aminotransfer ALT/SGPT 13 U/L (<=34); Alkaline Phosphatase 50 U/L (35-104); Anion Gap 13 (5-15); CRP < 3.00 mg/L (0.0-3.0); Calcium,Total 9.8 mg/dL (7.6-11.0); Carbon Dioxide 25.3 mmol/L (21.0-32.0); Chloride 103 mmol/L (98-108); Cholesterol 273 mg/dL (<=200); Low Density Lipoprotein Calc. 173 mg/dL; Potassium 4.6 mmol/L (3.3-5.1); Triglycerides 95 mg/dL; Very Low Density Lipoprotein 19 mg/dL (5-40); Vitamin D,25 Hydroxy 41.4 ng/mL (30-100); cholesterol:hdl ratio screen 3.37
[2025-02-25 16:10] LABS: Squamous Epithelial Cells - UA 5-10 SEEN /hpf (5-10)
[2025-02-25 16:11] LABS: Red Blood Cells-Urine 0-5 SEEN /hpf (0-5)
[2025-02-28 15:08] LABS: PROEL- A/G Ratio 1.2 (0.7-1.7); PROEL- Albumin 3.6 g/dL (2.9-4.4); PROEL- Alpha-1 Globulin 0.2 g/dL (0.0-0.4); PROEL- Alpha-2 Globulin 0.8 g/dL (0.4-1.0); PROEL- Beta Globulin 1.0 g/dL (0.7-1.3); PROEL- Gamma Globulin 1.0 g/dL (0.4-1.8); PROEL- Globulin, Total 3.1 g/dL (2.2-3.9); PROEL- TOTAL PROTEIN 6.7 g/dL (6.0-8.5); PROEL-M-Spike Not Observed g/dL (Not Observed)
== END | disposition home or self-care (01) ==
PROVIDERS: PCP Family Medicine; Referring Provider Family Medicine; Visit Provider Family Medicine
DX: I10 Essential (primary) hypertension (principal); E78.00 Pure hypercholesterolemia, unspecified; M54.2 Cervicalgia; M85.80 Other specified disorders of bone density and structure, unspecified site; R53.83 Other fatigue
CPT/HCPCS: 72050; 80053; 80061; 81001; 82043; 82306; 82570; 84165; 85025; 86140; 87077; 87086; 87088; 87186

== ENCOUNTER → 2025-03-31 | Outpatient (CLI) | payer MEDICARE, OTHER, SELFPAY ==
--- NOTE | 2025-03-31 13:56 | BD_ITS ---
PROCEDURE: DEXA BONE DENSITY STUDY 03/31/2025 REASON FOR EXAM: History of left hip replacement. F, age 89 y/o . Patient is postmenopausal.. TECHNIQUE: Procedure Code: BDDBD Modality: DX Procedure: DEXA BONE DENSITY STUDY COMPARISON: DEXA examination dated 12/26/2022 FINDINGS: BMD and T-SCORES Lumbar spine: 0.985 g/cm2, T-score -0.6 Levels: L1 through L4 Change from prior: There has been a significant increase in the bone mineral density of the lumbar spine by 2.4% since the prior study dated 12/26/2022.. Right femoral neck: 0.738 g/cm2, T-score -1.0 Right total hip: 0.671 g/cm2, T-score -2.2 Change from prior: There has been a decrease in the bone mineral density of the right hip by 1.2% since the prior study dated 12/26/2022. The World Health Organization has defined the following categories based on bone density: Normal bone density: T-score equal to or greater than -1.0 Osteopenia: T-score between -1.0 and -2.5 Osteoporosis: T-score equal to or less than -2.5 FRAX (or Comparable) Fracture Risk Assessment: 10 Year Probability of Fracture: Major Osteoporotic Fracture: 9.3% Hip Fracture: 2.5% (Note: FRAX is not to be reported in setting of normal range bone density, osteoporosis on DEXA, known history of osteoporosis, prior osteoporotic hip or vertebral fracture, or for any patient undergoing pharmacological treatment for bone loss.) The National Osteoporosis Foundation (NOF) recommends pharmacological treatment for patients with a FRAX 10-year risk of 3% or higher for a hip fracture, or 20% or higher for a major osteoporotic fracture, to prevent osteoporosis and reduce fracture risk. The patient does meet the pharmacological treatment recommendations for prevention of osteoporosis. BD/Dexa Bone Density Study IMPRESSION: OSTEOPENIA. Recommend follow-up as clinically warranted. Reading Location: [facility]
--- NOTE | 2025-03-31 14:30 | BI_ITS ---
EXAM: SCRN MAMM (CAD)W/ANNA BILAT DATE: 03/31/2025 CLINICAL HISTORY: F, Age 89 y/o , EVERY OTHER YEAR Sister with breast cancer. History of prior bilateral breast biopsies. TECHNIQUE: Procedure Code: [id number] Modality: MG Procedure: SCRN MAMM (CAD)W/ANNA BILAT COMPARISON: Prior exam(s) dated December 26, 2022.. FINDINGS: TISSUE DENSITY: The breasts are heterogeneously dense, which may obscure small masses. Bilateral Breast Mammographic Findings: No significant masses, calcifications or other abnormalities are identified. Once again, the left breast is smaller than the right. Stable deformity of the left breast most likely secondary to prior excisional breast biopsy. No suspicious masses, areas of developing architectural distortion, or suspicious calcifications. There has been no significant interval change. BI/SCRN MAMM (CAD)W/ANNA BILAT IMPRESSION: Stable bilateral screening mammogram. OVERALL FINAL ASSESSMENT BI-RADS 2: BENIGN RECOMMENDATION: Routine annual follow-up in 1 Year A letter with findings and recommendations will be mailed to the patient. Reading Location: [place] [id number]
== END | disposition home or self-care (01) ==
PROVIDERS: PCP Family Medicine; Referring Provider Family Medicine; Visit Provider Family Medicine
DX: Z12.31 Encounter for screening mammogram for malignant neoplasm of breast (principal); Z78.0 Asymptomatic menopausal state; M85.80 Other specified disorders of bone density and structure, unspecified site
CPT/HCPCS: 77063; 77067; 77080